=== PATIENT | female | born 1975 | race Caucasian/White ===

== ENCOUNTER 2016-07-28 19:59 | Emergency (ER) | payer SELFPAY ==
[2016-07-28 20:23] VITALS: BP 141/80
--- NOTE | 2016-07-28 20:42 | EDM.PDOC ---
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 Caught her arm on the hot tray. Now with blistered burn area to left forearm. Onset: Today Onset Date: 07/28/16 Onset Time: 20:39 Location: Reports: Upper Extremity, Right Quality: Reports: Other (no current pain, applied Solarcaine) Severity: Mild Improves with: Reports: Cold Therapy, Other (Solar cane and cold water) Worsens with: Reports: None Context: Reports: Other (baking) Associated Symptoms: Reports: No Other Symptoms - Related Data Allergies Allergy/AdvReac Type Severity Reaction Status Date / Time morphine Allergy Vomiting Verified 07/28/16 20:17 Home Meds: Home Meds NK [No Known Home Meds] 07/28/16 [History] Past Medical History - Past Surgical History GI Surgical History: Reports: Cholecystectomy Social & Family History - Tobacco Use Smoking Status *Q: Never Smoker ED ROS GENERAL - Review of Systems Review Of Systems: See Below Constitutional: Reports: No Symptoms Skin: Reports: Burn(s) (right forearm) ED EXAM, BURN/SMOKE INHALATION - Physical Exam Exam: See Below Exam Limited By: No Limitations General Appearance: Alert, WD/WN, No Apparent Distress Skin Exam: Other (right forearm with red skin flap due to burn. See nurses notes for measurement.) Course - Vital Signs Last Recorded V/S: Last Vital Signs Temp 97.0 F 07/28/16 20:21 Pulse 86 07/28/16 20:21 Resp 14 07/28/16 20:21 BP 141/80 H 07/28/16 20:21 Pulse Ox 97 07/28/16 20:21 - Orders/Labs/Meds Meds: Medications Discontinued Medications Generic Name Dose Route Start Last Admin Trade Name Freq PRN Reason Stop Dose Admin Silver Sulfadiazine 1 gm 07/28/16 20:48 Silvadene 1% Cream 50 Gm TOP 07/28/16 20:49 ONETIME ONE Departure - Departure Time of Disposition: 20:42 Disposition: Home, Self-Care 01 Clinical Impression: Burn, hands, second degree Qualifiers: Encounter type: initial encounter Laterality: right Qualified Code(s): T23.201A - Burn of second degree of right hand, unspecified site, initial encounter - Discharge Information Instructions: Burn Care, [id number] Referrals: PCP,None [Primary Care Provider] - Forms: ED Department Discharge Additional Instructions: Skin dressed with Silvadene cream and telfa and percy. Pt to dress daily after showering. To keep area clean and dry. Monitor for s/s of infection. Followup if sign of infection. - Problem List & Annotations (1) Burn, hands, second degree SNOMED Code(s): 25835356 Code(s): T23.209A - BURN OF SECOND DEGREE OF UNSP HAND, UNSP SITE, INIT ENCNTR Status: Acute Priority: Low Current Visit: Yes Qualifiers: Encounter type: initial encounter Laterality: right Qualified Code(s): T23.201A - Burn of second degree of right hand, unspecified site, initial encounter
[2016-07-28] MEDS ORDERED: Silver Sulfadiazine 1% Crm 50 GM Tube TOP ONE ×2 (20:48→21:05)
== END 2016-07-28 21:08 | disposition home or self-care (01) ==
LOC: JP.ED 19:59
DX: T22.211A Burn of second degree of right forearm, initial encounter (principal); Z88.5 Allergy status to narcotic agent; Z90.49 Acquired absence of other specified parts of digestive tract; X15.2XXA Contact with hotplate, initial encounter
CPT/HCPCS: 16020; 99283; A9270; 99282-25

== ENCOUNTER 2017-09-14 17:31 | Emergency (ER) | payer OTHER ==
[2017-09-14 19:10] VITALS: BP 121/64
[2017-09-14] MEDS ORDERED: cefTRIAXone 1 GM, Lidocaine 1% 2.1 ML IM ONE ×2 (19:39)
[2017-09-14] MEDS ORDERED: Ketorolac 60 MG/2 ML SDV IM ONE (19:39)
--- NOTE | 2017-09-14 19:46 | EDM.PDOC ---
ED HPI GENERAL MEDICAL PROBLEM - General Chief Complaint: Lower Extremity Injury/Pain Stated Complaint: SWOLLEN,RED RIGHT FOOT Time Seen by Provider: 09/14/17 18:41 Source of Information: Reports: Patient History Limitations: Reports: No Limitations - History of Present Illness INITIAL COMMENTS - FREE TEXT/NARRATIVE: right foot pain and redness; this is a 41 year old female presents to ER for evaluation of symptoms. reports woke up with a red and swollen foot. denies any injury to foot, no bites, or punctures. redness is from mid-foot to ankle. 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 denies any fever or chills. denies diabetes, or breast feeding. 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: Acetaminophen Right Feet Pain Score (Numeric/FACES): 7 - Related Data Allergies Allergy/AdvReac Type Severity Reaction Status Date / Time morphine Allergy Vomiting Verified 09/14/17 19:01 Home Meds: Home Meds Iron,Carbonyl/Vit C/Vit B12/Fa [Iron 100 Plus Tablet] 1 tab PO DAILY 09/14/17 [ History] Vitamin B Complex/Folic Acid [Vitamin B-100 Complex] 0.4 mg PO DAILY 09/14/17 [ History] 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: Hematologic History: Reports: Anemia - Past Surgical History GI Surgical History: Reports: Cholecystectomy Social & Family History - Tobacco Use Smoking Status *Q: Current Every Day Smoker Years of Tobacco use: 15 Packs/Tins Daily: 0.5 Used Tobacco, but Quit: No Second Hand Smoke Exposure: Yes - Caffeine Use Caffeine Use: Reports: Coffee - Recreational Drug Use Recreational Drug Use: Yes Recreational Drug Type: Reports: Methamphetamine - Living Situation & Occupation Occupation: Employed (works in [employer].) Review of Systems - Review of Systems Review Of Systems: See Below Constitutional: Reports: Other (right foot pain) Eyes: Reports: No Symptoms Ears: Reports: No Symptoms Nose: Reports: No Symptoms Mouth/Throat: Reports: No Symptoms Respiratory: Reports: No Symptoms Cardiovascular: Reports: No Symptoms GI/Abdominal: Reports: No Symptoms Musculoskeletal: Reports: Foot Pain Skin: Reports: Erythema (rt foot), Change in Color (rt foot) Neurological: Reports: No Symptoms Psychiatric: Reports: No Symptoms ED EXAM, GENERAL - Physical Exam Exam: See Below Exam Limited By: No Limitations General Appearance: Alert, WD/WN, Mild Distress Eye Exam: Bilateral Eye: Normal Inspection Extremities: Normal Capillary Refill (toes), Joint Swelling, Redness, Other ( right foot with redness, edema, pain for 3 days. toes normal color, +CMS) Neurological: No Motor/Sensory Deficits Psychiatric: Normal Affect, Normal Mood Skin Exam: Warm, Dry, Intact, Normal Color, No Rash Lymphatic: No Adenopathy Course - Vital Signs Last Recorded V/S: Last Vital Signs Temp 36.9 C 09/14/17 19:09 Pulse 96 09/14/17 19:09 Resp 16 09/14/17 19:09 BP 121/64 09/14/17 19:09 Pulse Ox 100 09/14/17 19:09 - Orders/Labs/Meds Meds: Medications Discontinued Medications Generic Name Dose Route Start Last Admin Trade Name Isaias PRN Reason Stop Dose Admin Ceftriaxone Sodium 1 gm 09/14/17 19:49 09/14/17 20:15 Rocephin IM 09/14/17 19:50 Not Given ONETIME ONE Ceftriaxone Sodium 1 gm/ 0 gm 09/14/17 19:39 09/14/17 20:13 Lidocaine HCl 2.1 ml IM 09/14/17 19:40 1 inj ONETIME ONE Administration Ketorolac Tromethamine 60 mg 09/14/17 19:39 09/14/17 20:09 Toradol IM 09/14/17 19:40 60 mg ONETIME ONE Administration Lidocaine HCl Confirm 09/14/17 20:02 09/14/17 20:15 Xylocaine 1% Administered 09/14/17 20:03 Not Given Dose 20 ml .ROUTE .STK-MED ONE - Re-Assessments/Exams Free Text/Narrative Re-Assessment/Exam: 09/14/17 right foot with pain, edema and redness from mid-foot to ankle. walking without a limp. plan; give Rocephin 1 gram and Toradol 60 mg im, instymeds Keflex and Percocet advise to keep off foot for 3 days follow up in [facility] recheck on Saturday, return to ER sooner for any worsen symptoms. Departure - Departure Time of Disposition: 20:20 Disposition: Home, Self-Care 01 Condition: Good Clinical Impression: Cellulitis of foot without toes, right - Discharge Information Instructions: Cellulitis, Adult, [id number] Referrals: PCP,None [Primary Care Provider] - Forms: ED Department Discharge Care Plan Goals: Cellulitis of right foot -Rocephin 1 gram IM in ER -Toradol 60mg IM in ER start Keflex 500 mg one capsule four times a day til all gone -apply warm moist heat 3 times a day for 3 days -elevate foot and keep off feet as much as possible for next 3 days -medicate for pain with Tylenol or Motrin as directed -acute pain; take Percocet 5-325mg one every 4 to 6 hours as need for pain #10 advise to have recheck with [facility] on Saturday, return to ER for any shaking chills, fever, increased pain, redness, nausea, vomiting or not improved - Problem List & Annotations (1) Cellulitis of foot without toes, right SNOMED Code(s): 326109748 Code(s): L03.115 - CELLULITIS OF RIGHT LOWER LIMB Status: Acute Priority : High - Problem List Review Problem List Initiated/Reviewed/Updated: Yes - Assessment/Plan Plan: Cellulitis of right foot -Rocephin 1 gram IM in ER -Toradol 60mg IM in ER start Keflex 500 mg one capsule four times a day til all gone -apply warm moist heat 3 times a day for 3 days -elevate foot and keep off feet as much as possible for next 3 days -medicate for pain with Tylenol or Motrin as directed -acute pain; take Percocet 5-325mg one every 4 to 6 hours as need for pain #10 advise to have recheck with [facility] on Saturday, return to ER for any shaking chills, fever, increased pain, redness, nausea, vomiting or not improved
[2017-09-14] MEDS ORDERED: cefTRIAXone 1 GM Vial IM ONE (19:49)
[2017-09-14] MEDS ORDERED: Lidocaine 1% 20 ML MDV ONE (20:02)
== END 2017-09-14 20:20 | disposition home or self-care (01) ==
LOC: JP.ED 17:31
DX: L03.115 Cellulitis of right lower limb (principal); F17.210 Nicotine dependence, cigarettes, uncomplicated; Z88.5 Allergy status to narcotic agent
CPT/HCPCS: 96372; 99283; J0696; J1885

== ENCOUNTER 2017-09-22 15:55 | Emergency (ER) | payer OTHER ==
[2017-09-22 16:08] VITALS: BP 147/97
--- NOTE | 2017-09-22 17:06 | EDM.PDOC ---
ED HPI GENERAL MEDICAL PROBLEM - General Chief Complaint: Skin Complaint Stated Complaint: CELLULITES, SEEN LAST SAT-NOT BETTER Time Seen by Provider: 09/22/17 16:49 Source of Information: Reports: Patient History Limitations: Reports: No Limitations - History of Present Illness INITIAL COMMENTS - FREE TEXT/NARRATIVE: 41 yo presents to ER with painful red swollen right foot into ankle. painful. was seen last 8 days ago IM rocephin and Keflex. initially improved but when she would return to activity the pain and swelling returned. mild SOB. general ill feeling. pt does have anemia with scheduled exploratory surgery this month. 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 Denies: Fever Respiratory: Denies: Shortness of Breath, Wheezing Cardiovascular: Denies: Chest Pain GI/Abdominal: Denies: Abdominal Pain ED EXAM, SKIN/RASH Exam: See Below Exam Limited By: No Limitations General Appearance: Alert, WD/WN, No Apparent Distress Head: Atraumatic, Normocephalic Neck: Normal Inspection, Supple, Non-Tender, Full Range of Motion. No: Lymphadenopathy (R), Lymphadenopathy (L) Respiratory/Chest: No Respiratory Distress, Lungs Clear, Normal Breath Sounds, No Accessory Muscle Use, Chest Non-Tender. No: Crackles, Rhonchi, Wheezing Cardiovascular: Regular Rate, Rhythm, Other (3+ edema in right LE and 1+ in left ) GI/Abdominal: Soft, Non-Tender Extremities: Redness (moderate edema with painful erythemic lateral foot to just about ankle) Neurological: Alert, Oriented Psychiatric: Normal Affect, Normal Mood Skin: Warm, Dry, Intact Course - Vital Signs Last Recorded V/S: Last Vital Signs Temp 36.4 C 09/22/17 16:07 Pulse 85 09/22/17 16:07 Resp 16 09/22/17 16:07 BP 147/97 H 09/22/17 16:07 Pulse Ox 98 09/22/17 16:07 - Orders/Labs/Meds Orders: Active Orders 24 hr Category Date Time Status VL Duplex Lwr Ext Veins Ltd Rt [US] Stat Exams 09/22/17 17:03 Taken Labs: Laboratory Tests 09/22/17 09/22/17 Range/Units 17:05 17:05 WBC 9.7 (4.5-11.0) K/uL RBC 4.38 (3.30-5.50) M/uL Hgb 9.7 L (12.0-15.0) g/dL Hct 33.5 L (36.0-48.0) % MCV 77 L (80-98) fL MCH 22 L (27-31) pg MCHC 29 L (32-36) % Plt Count 252 (150-400) K/uL Neut % (Auto) 72 H (36-66) % Lymph % (Auto) 12 L (24-44) % [place] % (Auto) 14 H (2-6) % Eos % (Auto) 1 L (2-4) % Baso % (Auto) 0 (0-1) % D-Dimer, Quantitative 320 (0.0-400.0) ng/mL Meds: Medications Discontinued Medications Generic Name Dose Route Start Last Admin Trade Name Freq PRN Reason Stop Dose Admin Ceftriaxone Sodium 1 gm/ 0 gm 09/22/17 18:15 09/22/17 18:25 Lidocaine HCl 2.1 ml IM 09/22/17 18:16 1 inj ONETIME ONE Administration Furosemide 20 mg 09/22/17 18:16 09/22/17 18:26 Lasix PO 09/22/17 18:17 20 mg ONETIME ONE Administration Ketorolac Tromethamine 60 mg 09/22/17 18:09 09/22/17 18:17 Toradol IM 09/22/17 18:10 60 mg ONETIME ONE Administration - Re-Assessments/Exams Free Text/Narrative Re-Assessment/Exam: 09/22/17 18:30 US right LE neg. Departure - Departure Time of Disposition: 18:27 Disposition: Home, Self-Care 01 Condition: Good Clinical Impression: Cellulitis of foot without toes, right - Discharge Information Instructions: Cellulitis, Adult Referrals: Shakila Ortiz PA-C [Primary Care Provider] - Forms: ED Department Discharge Additional Instructions: stop Keflex and start Augmentin 500 mg twice daily for 7 days Ibuprofen 600 mg with food and tylenol for pain with percocet for break through pain elevate as much as possible I gave you a dose of lasix here in the emergency room this will help remove the extra fluid in your legs - My Orders Last 24 Hours: My Active Orders 09/22/17 17:03 VL Duplex Lwr Ext Veins Ltd Rt [US] Stat - Assessment/Plan Last 24 Hours: My Active Orders 09/22/17 17:03 VL Duplex Lwr Ext Veins Ltd Rt [US] Stat
[2017-09-22] MEDS ORDERED: Ketorolac 60 MG/2 ML SDV IM ONE (18:09)
[2017-09-22] MEDS ORDERED: cefTRIAXone 1 GM, Lidocaine 1% 2.1 ML IM ONE ×2 (18:15)
[2017-09-22] MEDS ORDERED: Furosemide 20 MG Tab PO ONE (18:16)
--- NOTE | 2017-09-23 09:25 | US ---
VL Duplex Lwr Ext Veins Ltd Rt INDICATION: edema DVT FINDINGS: Ultrasound examination of the lower extremity using Doppler and compressive technique demon strates that the common femoral, femoral, and popliteal veins are patent, and negative for thrombus. The calf veins were segmentally visualized and are negative where seen. IMPRESSION: Negative for deep venous thrombosis.
== END 2017-09-22 19:13 | disposition home or self-care (01) ==
LOC: JP.ED 15:55
DX: L03.115 Cellulitis of right lower limb (principal); F17.210 Nicotine dependence, cigarettes, uncomplicated; Z88.5 Allergy status to narcotic agent
CPT/HCPCS: 36415; 85025; 85379; 93971; 96372; 99284; A9270; J0696; J1885

== ENCOUNTER 2017-10-01 01:53 | Emergency (ER) | payer OTHER ==
[2017-10-01 02:30] VITALS: BP 120/79
--- NOTE | 2017-10-01 02:30 | EDM.PDOC ---
ED HPI GENERAL MEDICAL PROBLEM - General Chief Complaint: Skin Complaint Stated Complaint: CELLULITIS Time Seen by Provider: 10/01/17 02:27 Source of Information: Reports: Patient History Limitations: Reports: No Limitations - History of Present Illness INITIAL COMMENTS - FREE TEXT/NARRATIVE: pt has markws swelling of the rt foot and she has redness in the inner aspect of the left foot. It is very painful. She has missed 2 weeks of work. 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: Hematologic History: Reports: Anemia Dermatologic History: Reports: Cellulitis - Past Surgical History GI Surgical History: Reports: Cholecystectomy Social & Family History - Tobacco Use Smoking Status *Q: Current Every Day Smoker Years of Tobacco use: 15 Packs/Tins Daily: 0.5 - Caffeine Use Caffeine Use: Reports: Soda - Recreational Drug Use Recreational Drug Use: No - Living Situation & Occupation Occupation: Employed (works in [employer] ED ROS GENERAL - Review of Systems Review Of Systems: See Below Constitutional: Reports: No Symptoms HEENT: Reports: No Symptoms Respiratory: Reports: No Symptoms Cardiovascular: Reports: No Symptoms Endocrine: Reports: No Symptoms GI/Abdominal: Reports: No Symptoms : Reports: No Symptoms Musculoskeletal: Reports: Other (pt has severe pain in the rt foot with marked swelling. She is now developing redness on the inner aspect of the rt foot. ) Skin: Reports: No Symptoms Neurological: Reports: No Symptoms, Difficulty Walking Psychiatric: Reports: No Symptoms Hematologic/Lymphatic: Reports: Anemia ED EXAM, SKIN/RASH Exam: See Below Text/Narrative:: pt arrived with persistent pain and swelling in the rt foot and leg. She is so uncomfortable that she can bearly stand on the leg. She feels like it is no spreading to the inner aspect of the rt foot. Exam Limited By: No Limitations General Appearance: Alert, Anxious, Moderate Distress Ears: Normal TMs Nose: Normal Inspection Throat/Mouth: Normal Inspection Head: Atraumatic Neck: Normal Inspection Respiratory/Chest: No Respiratory Distress Cardiovascular: Regular Rate, Rhythm GI/Abdominal: Soft, Non-Tender (Female) Exam: Deferred Rectal (Female) Exam: Deferred Back Exam: Normal Inspection Extremities: Redness, Other (marked swelling of the rt foot and leg. This is very tender. She has redness on the inner aspect of the left foot. ) Neurological: Alert, Oriented, Normal Cognition Course - Vital Signs Last Recorded V/S: Last Vital Signs Temp 36.4 C 10/01/17 02:04 Pulse 81 10/01/17 02:04 Resp 18 10/01/17 02:04 BP 120/79 10/01/17 02:04 Pulse Ox 98 10/01/17 02:04 - Orders/Labs/Meds Orders: Active Orders 24 hr Category Date Time Status BASIC METABOLIC PANEL,BMP [CHEM] Stat Lab 10/01/17 02:48 Ordered CRP [C-REACTIVE PROTEIN] [CHEM] Stat Lab 10/01/17 02:27 Ordered Labs: Laboratory Tests 10/01/17 Range/Units 02:50 WBC 7.5 (4.5-11.0) K/uL RBC 4.18 (3.30-5.50) M/uL Hgb 9.8 L (12.0-15.0) g/dL Hct 32.9 L (36.0-48.0) % MCV 79 L (80-98) fL MCH 23 L (27-31) pg MCHC 30 L (32-36) % Plt Count 373 (150-400) K/uL Neut % (Auto) 68 H (36-66) % Lymph % (Auto) 18 L (24-44) % [place] % (Auto) 12 H (2-6) % Eos % (Auto) 2 (2-4) % Baso % (Auto) 0 (0-1) % - Re-Assessments/Exams Free Text/Narrative Re-Assessment/Exam: 10/01/17 03:19 pt does not have a elevated wbc. I believe the pt may have a vasculitis. She should be seen by rheumatology. Departure - Departure Time of Disposition: 03:21 Disposition: Home, Self-Care 01 Condition: Fair Clinical Impression: Cellulitis, Vasculitis - Discharge Information Referrals: PCP,None [Primary Care Provider] - Forms: ED Department Discharge Care Plan Goals: work note not to return to work, consult with rheumatology, refill augmentin - My Orders Last 24 Hours: My Active Orders 10/01/17 02:27 CRP [C-REACTIVE PROTEIN] [CHEM] Stat 10/01/17 02:48 BASIC METABOLIC PANEL,BMP [CHEM] Stat - Assessment/Plan Last 24 Hours: My Active Orders 10/01/17 02:27 CRP [C-REACTIVE PROTEIN] [CHEM] Stat 10/01/17 02:48 BASIC METABOLIC PANEL,BMP [CHEM] Stat
== END 2017-10-01 03:39 | disposition home or self-care (01) ==
LOC: JP.ED 01:53
DX: L03.116 Cellulitis of left lower limb (principal); I77.6 Arteritis, unspecified; F17.210 Nicotine dependence, cigarettes, uncomplicated; Z88.5 Allergy status to narcotic agent; Z79.899 Other long term (current) drug therapy
CPT/HCPCS: 36415; 80048; 85025; 86140; 99284

== ENCOUNTER 2018-04-19 15:05 | Emergency (ER) | payer MEDICAID ==
[2018-04-19 15:26] VITALS: BP 121/61
--- NOTE | 2018-04-19 16:31 | EDM.PDOC ---
ED HPI GENERAL MEDICAL PROBLEM - General Chief Complaint: Headache Stated Complaint: FELL LAST WEEK, HAS BUMP & HEADACHE Time Seen by Provider: 04/19/18 16:05 Source of Information: Reports: Patient History Limitations: Reports: No Limitations - History of Present Illness INITIAL COMMENTS - FREE TEXT/NARRATIVE: This lady was walking up some stairs 5 days ago when she fell forward and bumped her for head against one of the steps. This was a wooden staircase. There was no loss of consciousness. She had a swollen lump on the left side of her for head. She said it hurt but then it got better. In the time since then she's had kind of a slowly decreasing headache mostly in the area of the forehead sometimes some nausea occasionally some dizziness occasionally a little bit of blurry vision. She's never had any trouble walking. He's never been any periods of confusion. Her main problem is that is just a headache and doesn't go away with just plain Tylenol. He does not take any kind of anticoagulation. 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: Musculoskeletal History: Reports: Other (See Below) Other Musculoskeletal History: complex regional pain disorder Endocrine/Metabolic History: Reports: Obesity/BMI 30+ Hematologic History: Reports: Anemia, Blood Transfusion(s), Iron Deficiency Dermatologic History: Reports: Cellulitis - Infectious Disease History Infectious Disease History: Reports: Scarlet Fever - Past Surgical History HEENT Surgical History: Reports: None GI Surgical History: Reports: Cholecystectomy, Colonoscopy, EGD Female Surgical History: Reports: Tubal Ligation Endocrine Surgical History: Reports: None Dermatological Surgical History: Reports: None Social & Family History - Tobacco Use Smoking Status *Q: Current Every Day Smoker Years of Tobacco use: 20 Packs/Tins Daily: 0.5 - Caffeine Use Caffeine Use: Reports: Coffee - Living Situation & Occupation Occupation: Employed (works in [employer].) ED ROS GENERAL - Review of Systems Review Of Systems: See Below Constitutional: Reports: No Symptoms HEENT: Reports: No Symptoms Respiratory: Reports: No Symptoms Cardiovascular: Reports: No Symptoms Endocrine: Reports: No Symptoms GI/Abdominal: Reports: No Symptoms : Reports: No Symptoms Musculoskeletal: Reports: No Symptoms Skin: Reports: No Symptoms Neurological: Reports: Dizziness (Occasional), Headache. Denies: Confusion, Numbness, Paresthesia, Pre-Existing Deficit, Trouble Speaking, Difficulty Walking, Weakness, Change in Speech, Gait Disturbance Psychiatric: Reports: No Symptoms ED EXAM, HEAD INJURY - Physical Exam Exam: See Below Exam Limited By: No Limitations General Appearance: Alert, WD/WN Head: Other (There is evidence of a minor contusion to the left side of the for head. There is no discoloration to it so it looks almost healed. 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 No: Abnormal Gait DTR: 2+: Bicep (R), Bicep (L), Patella (R), Patella (L) Skin: Normal Color Course - Vital Signs Last Recorded V/S: Last Vital Signs Temp 36.8 C 04/19/18 15:59 Pulse 74 04/19/18 15:59 Resp 16 04/19/18 15:59 BP 121/61 04/19/18 15:59 Pulse Ox 98 04/19/18 15:59 Departure - Departure Time of Disposition: 16:31 Disposition: Home, Self-Care 01 Condition: Fair Clinical Impression: Post-traumatic headache - Discharge Information Referrals: Shakila Ortiz PA-C [Primary Care Provider] - Additional Instructions: It is common to have these symptoms after a minor head injury. Your symptoms do not suggest any kind of internal injury such as bleeding around the brain. Because of this a CT of your head would not be needed but rather would just exposure to unneeded radiation. For pain you can use plain Tylenol along with ibuprofen or instead of the Tylenol you could use some of the [place] 5/325 (12 tablets) one or 2 every 4 hours when necessary. This medication can cause sedation and if abused can lead to addiction. You should be back to normal within several days. If you have more trouble follow-up with your Dr. or return to the ER at any time if needed
== END 2018-04-19 16:41 | disposition home or self-care (01) ==
LOC: JP.ED 15:05
DX: S00.03XA Contusion of scalp, initial encounter (principal); F17.210 Nicotine dependence, cigarettes, uncomplicated; Z88.5 Allergy status to narcotic agent; Z79.899 Other long term (current) drug therapy; W10.9XXA Fall (on) (from) unspecified stairs and steps, initial encounter
CPT/HCPCS: 99284

== ENCOUNTER 2018-06-02 22:34 | Emergency (ER) | payer MEDICAID ==
[2018-06-02] MEDS ORDERED: Sodium Chloride 0.9% 10 ML Syringe FLUSH PRN (23:12)
[2018-06-02] MEDS ORDERED: Prochlorperazine 10 MG/2 ML SDV IVPUSH ONE (23:14)
[2018-06-02] MEDS ORDERED: Ketorolac 30 MG/ML SDV IVPUSH ONE (23:14)
[2018-06-02] MEDS ORDERED: diphenhydrAMINE 50 MG/ML SDV IVPUSH ONE (23:14)
[2018-06-02] MEDS ORDERED: Sodium Chloride 0.9% 1,000 ML IV SCH (23:15)
[2018-06-02] MEDS ORDERED: fentaNYL 100 MCG/2 ML SDV IVPUSH ONE (23:16)
--- NOTE | 2018-06-02 23:19 | EDM.PDOC ---
ED HPI GENERAL MEDICAL PROBLEM - General Chief Complaint: Headache Stated Complaint: DULL HEADACHE Time Seen by Provider: 06/02/18 23:06 Source of Information: Reports: Patient, Family, RN Notes Reviewed History Limitations: Reports: No Limitations - History of Present Illness INITIAL COMMENTS - FREE TEXT/NARRATIVE: 42-year-old female presents to the emergency department today complaint of headache, she states the worst headache of her life she has no history of migraines this headache is very intense rates a 10 out of 10 to the back of her head she denies any trauma however she did have concussion type injury about one month ago. Does have nausea no photophobia no focal neurologic deficit no fever - Related Data Allergies Allergy/AdvReac Type Severity Reaction Status Date / Time morphine Allergy Vomiting Verified 04/19/18 15:52 Home Meds: Home Meds Iron,Carbonyl/Vit C/Vit B12/Fa [Iron 100 Plus Tablet] 65 mg PO BID 09/14/17 [ History] Vitamin B Complex/Folic Acid [Vitamin B-100 Complex] 0.4 mg PO DAILY 09/14/17 [ History] Indomethacin 50 mg PO TID PRN 10/17/17 [History] Topiramate [Topamax] 25 mg PO BEDTIME 02/12/18 [History] Past Medical History HEENT History: Reports: Impaired Vision Other HEENT History: wears glasses Genitourinary History: Reports: UTI, 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: Musculoskeletal History: Reports: Other (See Below) Other Musculoskeletal History: complex regional pain disorder Endocrine/Metabolic History: Reports: Obesity/BMI 30+ Hematologic History: Reports: Anemia, Blood Transfusion(s), Iron Deficiency Dermatologic History: Reports: Cellulitis - Infectious Disease History Infectious Disease History: Reports: Scarlet Fever - Past Surgical History HEENT Surgical History: Reports: None GI Surgical History: Reports: Cholecystectomy, Colonoscopy, EGD Female Surgical History: Reports: Tubal Ligation Endocrine Surgical History: Reports: None Dermatological Surgical History: Reports: None Social & Family History - Tobacco Use Smoking Status *Q: Current Every Day Smoker Years of Tobacco use: 10 Packs/Tins Daily: 0.5 - Caffeine Use Caffeine Use: Reports: None - Recreational Drug Use Recreational Drug Use: No - Living Situation & Occupation Occupation: Employed (works in [employer] ED ROS GENERAL - Review of Systems Review Of Systems: See Below Constitutional: Denies: Fever, Chills HEENT: Denies: Eye Pain Respiratory: Reports: No Symptoms Cardiovascular: Reports: No Symptoms GI/Abdominal: Reports: Nausea : Reports: No Symptoms Musculoskeletal: Reports: Neck Pain Skin: Reports: No Symptoms Neurological: Reports: Headache - Physical Exam Exam: See Below Exam Limited By: No Limitations General Appearance: Alert, WD/WN, No Apparent Distress Eye Exam: Bilateral Eye: EOMI, Normal Fundi, Normal Inspection Head Exam: Atraumatic, Normocephalic Neck: Supple, Non-Tender, Full Range of Motion, Other (Tenderness when she places her chin on her chest increases the pain in the headache) Respiratory/Chest: No Respiratory Distress Course - Vital Signs Last Recorded V/S: Last Vital Signs Temp 97.1 F 06/02/18 22:50 Pulse 79 06/03/18 00:38 Resp 15 06/03/18 00:38 BP 101/37 L 06/03/18 00:38 Pulse Ox 100 06/03/18 00:38 - Orders/Labs/Meds Orders: Active Orders 24 hr Category Date Time Status Peripheral IV Care [RC] . DIRECTED Care 06/02/18 23:12 Active Sodium Chloride 0.9% [Normal Saline] 1,000 ml Med 06/02/18 23:15 Active IV ASDIRECTED Sodium Chloride 0.9% [Saline Flush] Med 06/02/18 23:12 Active 10 ml FLUSH ASDIRECTED PRN Peripheral IV Insertion Adult [OM.PC] Urgent Oth 06/02/18 23:12 Ordered Medication Orders Sodium Chloride (Normal Saline) 1,000 mls @ 999 mls/hr IV ASDIRECTED [facility] Last Admin: 06/02/18 23:37 Dose: 999 mls/hr Sodium Chloride (Saline Flush) 10 ml FLUSH ASDIRECTED PRN PRN Reason: Keep Vein Open Labs: Laboratory Tests 06/02/18 06/02/18 Range/Units 23:26 23:26 WBC 5.8 (4.5-11.0) K/uL RBC 3.63 (3.30-5.50) M/uL Hgb 7.0 L (12.0-15.0) g/dL Hct 26.1 L (36.0-48.0) % MCV 72 L (80-98) fL MCH 19 L (27-31) pg MCHC 27 L (32-36) % Plt Count 119 L (150-400) K/uL Neut % (Auto) 58 (36-66) % Lymph % (Auto) 27 (24-44) % [place] % (Auto) 13 H (2-6) % Eos % (Auto) 2 (2-4) % Baso % (Auto) 1 (0-1) % Sodium 139 L (140-148) mmol/L Potassium 3.4 L (3.6-5.2) mmol/L Chloride 106 (100-108) mmol/L Carbon Dioxide 25 (21-32) mmol/L Anion Gap 11.4 (5.0-14.0) mmol/L BUN 8 (7-18) mg/dL Creatinine 0.7 (0.6-1.0) mg/dL Est Cr Clr Drug Dosing 89.48 mL/min Estimated GFR (MDRD) > 60 (>60) Glucose 98 (74-106) mg/dL Calcium 8.0 L (8.5-10.1) mg/dL Total Bilirubin 0.2 D (0.2-1.0) mg/dL AST 18 (15-37) U/L ALT 20 (12-78) U/L Alkaline Phosphatase 77 (46-116) U/L C-Reactive Protein 0.33 H (0.0-0.3) mg/dL Total Protein 6.4 (6.4-8.2) g/dL Albumin 2.7 L (3.4-5.0) g/dL Globulin 3.7 H (2.3-3.5) g/dL Albumin/Globulin Ratio 0.7 L (1.2-2.2) Meds: Medications Generic Name Dose Route Start Last Admin Trade Name Freq PRN Reason Stop Dose Admin Sodium Chloride 1,000 mls @ 999 mls/hr 06/02/18 23:15 06/02/18 23:37 Normal Saline IV 999 mls/hr ASDIRECTED NANCIE Administration Sodium Chloride 10 ml 06/02/18 23:12 Saline Flush FLUSH ASDIRECTED PRN Keep Vein Open Discontinued Medications Generic Name Dose Route Start Last Admin Trade Name Freq PRN Reason Stop Dose Admin Diphenhydramine HCl 25 mg 06/02/18 23:14 06/02/18 23:36 Benadryl IVPUSH 03/25/19 23:15 25 mg ONETIME ONE Administration Fentanyl 50 mcg 06/02/18 23:16 06/02/18 23:38 Sublimaze IVPUSH 06/02/18 23:17 50 mcg ONETIME ONE Administration Ketorolac Tromethamine 30 mg 06/02/18 23:14 Toradol IVPUSH 06/02/18 23:15 ONETIME ONE Prochlorperazine Edisylate 5 mg 06/02/18 23:14 06/02/18 23:42 Compazine IVPUSH 06/02/18 23:15 5 mg ONETIME ONE Administration Departure - Departure Time of Disposition: 00:51 Disposition: Home, Self-Care 01 Condition: Fair Clinical Impression: Headache Qualifiers: Headache type: unspecified Headache chronicity pattern: unspecified pattern Intractability: not intractable Qualified Code(s): R51 - Headache - Discharge Information Referrals: Shakila Ortiz PA-C [Primary Care Provider] - Forms: ED Department Discharge Additional Instructions: Please follow-up with your primary care provider in the next 1-2 days for reevaluation to discuss anemia and headache, call return to the emergency department worsening of symptoms - My Orders Last 24 Hours: My Active Orders 06/02/18 23:12 Peripheral IV Care [RC] . DIRECTED Sodium Chloride 0.9% [Saline Flush] 10 ml FLUSH ASDIRECTED PRN Peripheral IV Insertion Adult [OM.PC] Urgent 06/02/18 23:15 Sodium Chloride 0.9% [Normal Saline] 1,000 ml IV ASDIRECTED - Assessment/Plan Last 24 Hours: My Active Orders 06/02/18 23:12 Peripheral IV Care [RC] . DIRECTED Sodium Chloride 0.9% [Saline Flush] 10 ml FLUSH ASDIRECTED PRN Peripheral IV Insertion Adult [OM.PC] Urgent 06/02/18 23:15 Sodium Chloride 0.9% [Normal Saline] 1,000 ml IV ASDIRECTED Plan: Assessment Acuity = acute Site and laterality = headache Etiology = unclear etiology Manifestations = none Location of injury = Home Lab values = hemoglobin low at 7.0 consistent microchromic anemia, CT scan of the head was negative CMP unremarkable Plan I did talk to her about the possibility of a lumbar puncture she declined, also discussed the possibility of transfusion at this time she declined she does feel better with the treatment provided of therefore she is given a follow-up with her primary care for further evaluation for anemia as well as headache This note was dictated using [employer] voice recognition software please call with any questions on syntax or grammar.
--- NOTE | 2018-06-03 00:25 | CRLCT ---
INDICATION: Worst headache of life TECHNIQUE: CT head without contrast. COMPARISON: None. FINDINGS: CSF spaces: Within normal limits for age. Brain parenchyma: The tovar-white differentiation is normal. No sign of mass, hemorrhage, or midline shift. Skull base and calvarium: The visualized paranasal sinuses and mastoid air cells demonstrate no acute or significant findings. The visualized orbits are grossly unremarkable. No skull fractures. IMPRESSION: Unremarkable noncontrast head CT. Please note that all CT scans at this facility use dose modulation, iterative reconstruction, and/or weight-based dosing when appropriate to reduce radiation dose to as low as reasonably achievable. Dictated by Lenin Malagon MD @ Jun 03 2018 12:20AM Signed by Dr. Lenin Malagon @ Jun 03 2018 12:23AM
[2018-06-03 00:39] VITALS: BP 101/37
== END 2018-06-03 01:02 | disposition home or self-care (01) ==
LOC: JP.ED 22:34
DX: R51 Headache (principal); E66.9 Obesity, unspecified; F17.210 Nicotine dependence, cigarettes, uncomplicated; Z90.49 Acquired absence of other specified parts of digestive tract; Z98.51 Tubal ligation status; Z86.2 Personal history of diseases of the blood and blood-forming organs and certain disorders involving the immune mechanism; Z88.5 Allergy status to narcotic agent
CPT/HCPCS: 36415; 70450; 80053; 85025; 86140; 96361; 96374; 96375; 99284; J0780; J1200; J3010; J7030

== ENCOUNTER 2019-05-02 10:20 | Observation (INO) | payer MEDICAID ==
[2019-05-02] MEDS ORDERED: Ondansetron 4 MG/2 ML SDV IVPUSH ONE (11:06)
--- NOTE | 2019-05-02 11:09 | EDM.PDOC ---
ED HPI GENERAL MEDICAL PROBLEM - General Chief Complaint: General Stated Complaint: HURTS IN THE UPPER CHEST AREA Time Seen by Provider: 05/02/19 11:07 Source of Information: Reports: Patient History Limitations: Reports: No Limitations - History of Present Illness INITIAL COMMENTS - FREE TEXT/NARRATIVE: pt has discomfort in her chest. She is having heart burn. She did vomit twice yesterday and there was no blood in the emesis. She has noted some dark tarry stools but not all of the time. Onset: Gradual, Other (last 2 days. She did vomit yesterday. ) Duration: Hour(s): Location: Reports: Chest, Abdomen, Generalized Associated Symptoms: Reports: Nausea/Vomiting, Shortness of Breath, Weakness Chest Pain Score (Numeric/FACES): 5 - Related Data Allergies Allergy/AdvReac Type Severity Reaction Status Date / Time morphine Allergy Vomiting Verified 05/02/19 10:47 Home Meds: Home Meds Iron,Carbonyl/Vit C/Vit B12/Fa [Iron 100 Plus Tablet] 1 tab PO BID 09/14/17 [ History] Vitamin B Complex/Folic Acid [Vitamin B-100 Complex] 1 tab PO DAILY 09/14/17 [ History] Albuterol Sulfate [Albuterol Sulfate Hfa] 2 inh INH QID PRN 06/03/18 [History] Nicotine [Nicotrol] 1 inh INH ASDIRECTED PRN 06/03/18 [History] Topiramate [Topamax] 100 mg PO BID 06/03/18 [History] traZODone HCl [Trazodone HCl] 50 mg PO DAILY 06/03/18 [History] Pregabalin [Lyrica] 1 - 3 tab PO BEDTIME 05/02/19 [History] hydrOXYzine pamoate [Hydroxyzine Pamoate] 1 cap PO ASDIRECTED 05/02/19 [History] Past Medical History HEENT History: Reports: Impaired Vision Other HEENT History: wears glasses Genitourinary History: Reports: UTI, Recurrent 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: Musculoskeletal History: Reports: Other (See Below) Other Musculoskeletal History: complex regional pain disorder Psychiatric History: Reports: Addiction Endocrine/Metabolic History: Reports: Obesity/BMI 30+ Hematologic History: Reports: Anemia, Blood Transfusion(s), Iron Deficiency Dermatologic History: Reports: Cellulitis - Infectious Disease History Infectious Disease History: Reports: Scarlet Fever - Past Surgical History GI Surgical History: Reports: Cholecystectomy, Colonoscopy, EGD Female Surgical History: Reports: Tubal Ligation Social & Family History - Tobacco Use Smoking Status *Q: Light Tobacco Smoker Years of Tobacco use: 15 Packs/Tins Daily: 0.1 - Caffeine Use Caffeine Use: Reports: None - Recreational Drug Use Recreational Drug Use: Yes Recreational Drug Type: Reports: Methamphetamine Recreational Drug Use Frequency: Socially - Living Situation & Occupation Occupation: Employed (works in [email or web address] ED ROS GENERAL - Review of Systems Review Of Systems: See Below Constitutional: Reports: Malaise, Weakness, Decreased Appetite HEENT: Reports: No Symptoms Respiratory: Reports: Shortness of Breath Cardiovascular: Reports: No Symptoms Endocrine: Reports: No Symptoms GI/Abdominal: Reports: Abdominal Pain, Other (heartburn in the epuigastric area. ) : Reports: No Symptoms Musculoskeletal: Reports: No Symptoms Skin: Reports: No Symptoms ED EXAM, GENERAL - Physical Exam Exam: See Below Free Text/Narrative:: pt arrived feeling very weak and dizzy. She has been nauseated and she did vomit twice yesterday. She does have heartburn like symptoms. Exam Limited By: No Limitations General Appearance: Alert, Anxious, Moderate Distress, Other ( she states her ribs hurt. ) Ears: Normal TMs Nose: Normal Inspection Throat/Mouth: Normal Inspection Head: Atraumatic Neck: Normal Inspection Respiratory/Chest: No Respiratory Distress, Other (pt states her ribs hurt but she does not have chest pain. ) Cardiovascular: Regular Rate, Rhythm GI/Abdominal: Other ( tender in the epigastric area. ) (Female) Exam: Deferred, Other (pt has had 2 periods this month and this one is very heavy. ) Rectal (Female) Exam: Other ( no masses she did have a positive stool. ) Back Exam: Normal Inspection Extremities: Normal Inspection Neurological: Alert, Oriented, Normal Cognition, Other ( very pale appearing. ) Psychiatric: Normal Affect Course - Vital Signs Last Recorded V/S: Last Vital Signs Temp 35.8 C L 05/02/19 10:50 Pulse 66 05/02/19 11:54 Resp 18 05/02/19 11:54 BP 137/67 05/02/19 11:54 Pulse Ox 99 05/02/19 11:54 - Orders/Labs/Meds Orders: Active Orders 24 hr Category Date Time Status Chest 1V Frontal [CR] Stat Exams 05/02/19 11:09 Taken DRUG SCREEN, URINE [URCHEM] Stat Lab 05/02/19 12:12 Ordered RED BLOOD CELLS LP [BBK] Stat Lab 05/02/19 11:15 Received TYPE AND SCREEN [BBK] Stat Lab 05/02/19 11:15 Received UA W/MICROSCOPIC [URIN] Urgent Lab 05/02/19 10:57 Ordered Sodium Chloride 0.9% [Normal Saline] 1,000 ml Med 05/02/19 11:15 Active IV ASDIRECTED Transfuse Red Blood Cells [COMM] Stat Oth 05/02/19 11:37 Ordered Medication Orders Sodium Chloride (Normal Saline) 1,000 mls @ 999 mls/hr IV ASDIRECTED NANCIE Last Admin: 05/02/19 11:51 Dose: 999 mls/hr Labs: Laboratory Tests 05/02/19 05/02/19 05/02/19 Range/Units 11:20 11:20 11:38 WBC 7.7 (4.5-11.0) K/uL RBC 3.77 (3.30-5.50) M/uL Hgb 6.8 L* D (12.0-15.0) g/dL Hct 26.4 L (36.0-48.0) % MCV 70 L (80-98) fL MCH 18 L (27-31) pg MCHC 26 L (32-36) % Plt Count 100 L (150-400) K/uL Neut % (Auto) 71 H (36-66) % Lymph % (Auto) 14 L (24-44) % [place] % (Auto) 12 H (2-6) % Eos % (Auto) 3 (2-4) % Baso % (Auto) 0 (0-1) % Sodium 140 (140-148) mmol/L Potassium 3.3 L (3.6-5.2) mmol/L Chloride 106 (100-108) mmol/L Carbon Dioxide 24 (21-32) mmol/L Anion Gap 13.3 (5.0-14.0) mmol/L BUN 5 L (7-18) mg/dL Creatinine 0.6 (0.6-1.0) mg/dL Est Cr Clr Drug Dosing 103.32 mL/min Estimated GFR (MDRD) > 60 (>60) Glucose 93 (74-106) mg/dL Calcium 8.3 L (8.5-10.1) mg/dL Iron 13 L (50-170) ug/dL TIBC 375 (250-450) ug/dl % Saturation 3 L (20-55) % Total Bilirubin 0.2 (0.2-1.0) mg/dL AST 15 (15-37) U/L ALT 25 (12-78) U/L Alkaline Phosphatase 85 (46-116) U/L Total Protein 6.4 (6.4-8.2) g/dL Albumin 2.8 L (3.4-5.0) g/dL Globulin 3.6 H (2.3-3.5) g/dL Albumin/Globulin Ratio 0.8 L (1.2-2.2) Meds: Medications Generic Name Dose Route Start Last Admin Trade Name Freq PRN Reason Stop Dose Admin Sodium Chloride 1,000 mls @ 999 mls/hr 05/02/19 11:15 05/02/19 11:51 Normal Saline IV 999 mls/hr ASDIRECTED NANCIE Administration Discontinued Medications Generic Name Dose Route Start Last Admin Trade Name Freq PRN Reason Stop Dose Admin Ondansetron HCl 4 mg 05/02/19 11:06 05/02/19 11:51 Zofran IVPUSH 05/02/19 11:07 4 mg ONETIME ONE Administration - Re-Assessments/Exams Free Text/Narrative Re-Assessment/Exam: 05/02/19 12:17 hg is 6.8. She has low iron. Pt does admit to using meth at times. Departure - Departure Time of Disposition: 12:18 Disposition: Admitted As Inpatient 65 Condition: Fair Clinical Impression: Anemia, Gastrointestinal irritation, Heavy menses, Low iron stores - Discharge Information Referrals: Shakila Ortiz PA-C [Primary Care Provider] - Forms: ED Department Discharge Care Plan Goals: admit to Dr Burks Sepsis Event Note - Focused Exam Vital Signs: Vital Signs Temp Pulse Resp BP Pulse Ox 05/02/19 11:54 66 18 137/67 99 05/02/19 10:50 35.8 C L 67 14 138/69 99 05/02/19 10:20 35.8 C L 67 14 138/69 99 Date Exam was Performed: 05/02/19 Time Exam was Performed: 12:12 - My Orders Last 24 Hours: My Active Orders 05/02/19 10:57 UA W/MICROSCOPIC [URIN] Urgent 05/02/19 11:09 Chest 1V Frontal [CR] Stat 05/02/19 11:15 RED BLOOD CELLS LP [BBK] Stat TYPE AND SCREEN [BBK] Stat Sodium Chloride 0.9% [Normal Saline] 1,000 ml IV ASDIRECTED 05/02/19 11:37 Transfuse Red Blood Cells [COMM] Stat 05/02/19 12:12 DRUG SCREEN, URINE [URCHEM] Stat - Assessment/Plan Last 24 Hours: My Active Orders 05/02/19 10:57 UA W/MICROSCOPIC [URIN] Urgent 05/02/19 11:09 Chest 1V Frontal [CR] Stat 05/02/19 11:15 RED BLOOD CELLS LP [BBK] Stat TYPE AND SCREEN [BBK] Stat Sodium Chloride 0.9% [Normal Saline] 1,000 ml IV ASDIRECTED 05/02/19 11:37 Transfuse Red Blood Cells [COMM] Stat 05/02/19 12:12 DRUG SCREEN, URINE [URCHEM] Stat
[2019-05-02] MEDS ORDERED: Sodium Chloride 0.9% 1,000 ML IV SCH ×2 (11:15→14:37)
[2019-05-02] MEDS ORDERED: Alum Hydrox/Mag Hydrox/Simeth 15 ML, Lidocaine 2% 15 ML PO ONE ×4 (12:14→20:04)
[2019-05-02] MEDS ORDERED: Pantoprazole 40 MG Vial IVPUSH SCH (12:15)
--- NOTE | 2019-05-02 13:49 | PCM.HP.2 ---
H&P History of Present Illness - General Date of Service: 05/02/19 Admit Problem/Dx: Admission Diagnosis/Problem Admission Diagnosis/Problem Microcytic anemia Source of Information: Patient, Family, Provider, RN Notes Reviewed History Limitations: Reports: No Limitations - History of Present Illness Initial Comments - Free Text/Narative: Ms. Luque is a 43-year-old woman who was admitted through the emergency department observation status for further evaluation and management of microcytic, iron deficiency anemia. She has had a longstanding history of iron deficiency anemia. No specific etiology is been identified other than heavy periods. Last EGD and colonoscopy were approximately 18 months ago at that time upper endoscopy was unremarkable and colonoscopy was incomplete because of very poor prep. He admits that she is not been taking her iron supplement. Recently has had symptoms of chest pain, lightheadedness, weakness, and shortness of breath. These symptoms are very similar to when her anemia has been severe in the past. On evaluation in the emergency department hemoglobin is low at 7.8 with microcytic indices. Iron level also found to be low. Chest Pain Score (Numeric/FACES): 5 - Related Data Allergies/Adverse Reactions: Allergies Allergy/AdvReac Type Severity Reaction Status Date / Time morphine Allergy Vomiting Verified 05/02/19 10:47 Home Medications: Home Meds Iron,Carbonyl/Vit C/Vit B12/Fa [Iron 100 Plus Tablet] 1 tab PO BID 09/14/17 [ History] Vitamin B Complex/Folic Acid [Vitamin B-100 Complex] 1 tab PO DAILY 09/14/17 [ History] Albuterol Sulfate [Albuterol Sulfate Hfa] 2 inh INH QID PRN 06/03/18 [History] Nicotine [Nicotrol] 1 inh INH ASDIRECTED PRN 06/03/18 [History] Topiramate [Topamax] 100 mg PO BID 06/03/18 [History] traZODone HCl [Trazodone HCl] 50 mg PO DAILY 06/03/18 [History] Pregabalin [Lyrica] 1 - 3 tab PO BEDTIME 05/02/19 [History] hydrOXYzine pamoate [Hydroxyzine Pamoate] 1 cap PO ASDIRECTED 05/02/19 [History] Past Medical History HEENT History: Reports: Impaired Vision Other HEENT History: wears glasses Genitourinary History: Reports: UTI, Recurrent SUBSTANCE ABUSE NURSE History: Reports: Musculoskeletal History: Reports: Other (See Below) Other Musculoskeletal History: complex regional pain disorder Psychiatric History: Reports: Addiction Endocrine/Metabolic History: Reports: Obesity/BMI 30+ Hematologic History: Reports: Anemia, Blood Transfusion(s), Iron Deficiency Dermatologic History: Reports: Cellulitis - Infectious Disease History Infectious Disease History: Reports: Scarlet Fever - Past Surgical History GI Surgical History: Reports: Cholecystectomy, Colonoscopy, EGD Female Surgical History: Reports: Tubal Ligation Social & Family History - Tobacco Use Smoking Status *Q: Light Tobacco Smoker Years of Tobacco use: 15 Packs/Tins Daily: 0.1 - Caffeine Use Caffeine Use: Reports: None - Recreational Drug Use Recreational Drug Use: Yes Recreational Drug Type: Reports: Methamphetamine Recreational Drug Use Frequency: Socially - Living Situation & Occupation Occupation: Employed (works in [employer] H&P Review of Systems - Review of Systems: Review Of Systems: Comprehensive ROS is negative, except as noted in HPI. Exam - Exam Exam: See Below - Vital Signs Vital Signs: Last Vital Signs Temp 96.4 F L 05/02/19 13:30 Pulse 66 05/02/19 13:30 Resp 16 05/02/19 13:30 BP 120/68 05/02/19 13:30 Pulse Ox 99 05/02/19 13:30 Weight: 208 lb 5.389 oz - Exam General: Alert, Oriented, Cooperative, Mild Distress HEENT: Conjunctiva Clear, Hearing Intact, Mucosa Moist & [place], Normal Nasal Septum, Posterior Pharynx Clear, Pupils Equal Neck: Supple, Trachea Midline, +2 Carotid Pulse wo Bruit Lungs: Clear to Auscultation, Normal Respiratory Effort Cardiovascular: Regular Rate, Regular Rhythm, Normal S1, Normal S2. No: Systolic Murmur, Diastolic Murmur GI/Abdominal Exam: Soft, Non-Tender, No Organomegaly, No Distention Back Exam: Normal Inspection, Full Range of Motion Extremities: Non-Tender, No Pedal Edema Skin: Warm, Dry, Intact Neurological: Cranial Nerves Intact, Strength Equal Bilateral, Normal Speech, Normal Tone, Sensation Intact. No: Focal Deficit Neuro Extensive - Mental Status: Alert, Oriented x3, Normal Mood/Affect, Normal Cognition, Memory Intact - Patient Data Lab Results Last 24 hrs: Laboratory Results - last 24 hr 05/02/19 05/02/19 05/02/19 Range/Units 10:57 11:15 11:20 WBC 7.7 (4.5-11.0) K/uL RBC 3.77 (3.30-5.50) M/uL Hgb 6.8 L* D (12.0-15.0) g/dL Hct 26.4 L (36.0-48.0) % MCV 70 L (80-98) fL MCH 18 L (27-31) pg MCHC 26 L (32-36) % Plt Count 100 L (150-400) K/uL Neut % (Auto) 71 H (36-66) % Lymph % (Auto) 14 L (24-44) % Gibson % (Auto) 12 H (2-6) % Eos % (Auto) 3 (2-4) % Baso % (Auto) 0 (0-1) % Sodium (140-148) mmol/L Potassium (3.6-5.2) mmol/L Chloride (100-108) mmol/L Carbon Dioxide (21-32) mmol/L Anion Gap (5.0-14.0) mmol/L BUN (7-18) mg/dL Creatinine (0.6-1.0) mg/dL Est Cr Clr Drug Dosing mL/min Estimated GFR (MDRD) (>60) Glucose (74-106) mg/dL Calcium (8.5-10.1) mg/dL Iron (50-170) ug/dL TIBC (250-450) ug/dl % Saturation (20-55) % Total Bilirubin (0.2-1.0) mg/dL AST (15-37) U/L ALT (12-78) U/L Alkaline Phosphatase (46-116) U/L Total Protein (6.4-8.2) g/dL Albumin (3.4-5.0) g/dL Globulin (2.3-3.5) g/dL Albumin/Globulin Ratio (1.2-2.2) Urine Color Yellow (YELLOW) Urine Appearance Cloudy A (CLEAR) Urine pH 7.0 (5.0-8.0) Ur Specific [place] 1.020 (1.008-1.030) Urine Protein Negative (NEGATIVE) mg/dL Urine Glucose (UA) Negative (NEGATIVE) mg/dL Urine Ketones Negative (NEGATIVE) mg/dL Urine Occult Blood Large H (NEGATIVE) Urine Nitrite Negative (NEGATIVE) Urine Bilirubin Negative (NEGATIVE) Urine Urobilinogen 1.0 (0.2-1.0) EU/dL Ur Leukocyte Esterase Negative (NEGATIVE) Urine RBC 40-50 H (0-5) Urine WBC 10-20 H (0-5) Ur Epithelial Cells Few Amorphous Sediment Not seen Urine Bacteria Few Urine Mucus Not seen Urine Opiates Screen (NEGATIVE) Ur Oxycodone Screen (NEGATIVE) Urine Methadone Screen (NEGATIVE) Ur Propoxyphene Screen (NEGATIVE) Ur Barbiturates Screen (NEGATIVE) Ur Tricyclics Screen (NEGATIVE) Ur Phencyclidine Scrn (NEGATIVE) Ur Amphetamine Screen (NEGATIVE) U Methamphetamines Scrn (NEGATIVE) Urine MDMA Screen (NEGATIVE) U Benzodiazepines Scrn (NEGATIVE) U Cocaine Metab Screen (NEGATIVE) U Marijuana (THC) Screen (NEGATIVE) Blood Type A POSITIVE Gel Antibody Screen Positive A* Crossmatch See Detail 05/02/19 05/02/19 05/02/19 Range/Units 11:20 11:38 12:12 WBC (4.5-11.0) K/uL RBC (3.30-5.50) M/uL Hgb (12.0-15.0) g/dL Hct (36.0-48.0) % MCV (80-98) fL MCH (27-31) pg MCHC (32-36) % Plt Count (150-400) K/uL Neut % (Auto) (36-66) % Lymph % (Auto) (24-44) % Gibson % (Auto) (2-6) % Eos % (Auto) (2-4) % Baso % (Auto) (0-1) % Sodium 140 (140-148) mmol/L Potassium 3.3 L (3.6-5.2) mmol/L Chloride 106 (100-108) mmol/L Carbon Dioxide 24 (21-32) mmol/L Anion Gap 13.3 (5.0-14.0) mmol/L BUN 5 L (7-18) mg/dL Creatinine 0.6 (0.6-1.0) mg/dL Est Cr Clr Drug Dosing 103.32 mL/min Estimated GFR (MDRD) > 60 (>60) Glucose 93 (74-106) mg/dL Calcium 8.3 L (8.5-10.1) mg/dL Iron 13 L (50-170) ug/dL TIBC 375 (250-450) ug/dl % Saturation 3 L (20-55) % Total Bilirubin 0.2 (0.2-1.0) mg/dL AST 15 (15-37) U/L ALT 25 (12-78) U/L Alkaline Phosphatase 85 (46-116) U/L Total Protein 6.4 (6.4-8.2) g/dL Albumin 2.8 L (3.4-5.0) g/dL Globulin 3.6 H (2.3-3.5) g/dL Albumin/Globulin Ratio 0.8 L (1.2-2.2) Urine Color (YELLOW) Urine Appearance (CLEAR) Urine pH (5.0-8.0) Ur Specific [place] (1.008-1.030) Urine Protein (NEGATIVE) mg/dL Urine Glucose (UA) (NEGATIVE) mg/dL Urine Ketones (NEGATIVE) mg/dL Urine Occult Blood (NEGATIVE) Urine Nitrite (NEGATIVE) Urine Bilirubin (NEGATIVE) Urine Urobilinogen (0.2-1.0) EU/dL Ur Leukocyte Esterase (NEGATIVE) Urine RBC (0-5) Urine WBC (0-5) Ur Epithelial Cells Amorphous Sediment Urine Bacteria Urine Mucus Urine Opiates Screen Negative (NEGATIVE) Ur Oxycodone Screen Negative (NEGATIVE) Urine Methadone Screen Negative (NEGATIVE) Ur Propoxyphene Screen Negative (NEGATIVE) Ur Barbiturates Screen Negative (NEGATIVE) Ur Tricyclics Screen Negative (NEGATIVE) Ur Phencyclidine Scrn Negative (NEGATIVE) Ur Amphetamine Screen Negative (NEGATIVE) U Methamphetamines Scrn Presumptive positive H (NEGATIVE) Urine MDMA Screen Negative (NEGATIVE) U Benzodiazepines Scrn Negative (NEGATIVE) U Cocaine Metab Screen Negative (NEGATIVE) U Marijuana (THC) Screen Negative (NEGATIVE) Blood Type Gel Antibody Screen Crossmatch Result Diagrams: 05/02/19 11:20 05/02/19 11:20 [place] Results Last 24 hrs: Microbiology 05/02/19 11:05 Stool Occult Blood ([facility]) - Final Stool / Feces Sepsis Event Note - Evaluation Sepsis Screening Result: No Definite Risk - Focused Exam Vital Signs: Vital Signs Temp Pulse Resp BP Pulse Ox 05/02/19 13:30 96.4 F L 66 16 120/68 99 05/02/19 11:54 66 18 137/67 99 05/02/19 10:50 96.4 F L 67 14 138/69 99 05/02/19 10:20 96.4 F L 67 14 138/69 99 Date Exam was Performed: 05/02/19 Time Exam was Performed: 13:41 *Q Meaningful Use (ADM) - VTE Risk Assess *Q Each Risk Factor Represents 1 Point: Age 41 - 59 years, Obesity ( BMI > 25 kg/m2 ) Total Score 1 Point Risk Factors: 2 Each Risk Factor Represents 2 Points: None Total Score 2 Point Risk Factors: 0 Each Risk Factor Represents 3 Points: None Total Score 3 Point Risk Factors: 0 Each Risk Factor Represents 5 Points: None Total Score 5 Point Risk Factors: 0 Venous Thromboembolism Risk Factor Score *Q: 2 Problem List Initiated/Reviewed/Updated: Yes Orders Last 24hrs: Active Orders 24 hr Category Date Time Status Patient Status Manage Transfer [TRANSFER] Routine ADT 05/02/19 13:05 Active Chest 1V Frontal [CR] Stat Exams 05/02/19 11:09 Taken ANTIBODY IDENTIFICATION [BBK] Stat Lab 05/02/19 11:15 Results RED BLOOD CELLS LP [BBK] Stat Lab 05/02/19 11:15 Results TYPE AND SCREEN [BBK] Stat Lab 05/02/19 11:15 Results Pantoprazole [ProTONIX IV] Med 05/02/19 12:15 Active 80 mg IVPUSH .BOLUS Sodium Chloride 0.9% [Normal Saline] 1,000 ml Med 05/02/19 11:15 Active IV ASDIRECTED Resuscitation Status Routine Resus Stat 05/02/19 13:08 Ordered Medication Orders Sodium Chloride (Normal Saline) 1,000 mls @ 999 mls/hr IV ASDIRECTED NANCIE Last Admin: 05/02/19 11:51 Dose: 999 mls/hr Pantoprazole Sodium (Protonix Iv) 80 mg IVPUSH .BOLUS NANCIE Last Admin: 05/02/19 12:25 Dose: 80 mg Assessment/Plan Comment:: ASSESSMENT AND PLAN IRON DEFICIENCY ANEMIA-longstanding problem having previously required transfusion. Recent symptoms of weakness, lightheadedness, shortness of breath , and chest pain similar to previous episodes of severe anemia. Hemoglobin in the emergency department found to be very low at 7.8 with microcytic indices. Iron level obtained and is also found to be low. I suspect that this is secondary to combination of heavy menstrual periods and iron malabsorption versus noncompliance with supplemental iron. EGD 18 months ago was unremarkable , colonoscopy was incomplete and the patient deferred reattempted colonoscopy following a second prep. -Transfuse 1 unit of red blood cells -Hemoglobin following transfusion and in a.m. -IV iron infusion today and again tomorrow -Suspect that she will require further iron infusions in the near future and on an ongoing basis to prevent severe anemia and further transfusions. -Protonix 40 mg p.o. twice daily -Consider outpatient EGD and colonoscopy MAINTENANCE ISSUES -DVT prophylaxis; not indicated -GI prophylaxis; Protonix as above -Duncan catheter; not indicated -Nutrition; regular diet -Nicotine dependence; not required CODE STATUS-FULL CODE ADMISSION STATUS-this patient will be admitted to observation status, expect no more than a one night hospital stay for evaluation and management of problems as outlined above. DISPOSITION-anticipate discharge to home after the hospital stay. PRIMARY CARE PROVIDER-Mandy Ortiz - Mortality Measure Prognosis:: Good
[2019-05-02] MEDS ORDERED: Polyethylene Glycol 3350 Powder 17 GM Packet PO PRN (14:37)
[2019-05-02] MEDS ORDERED: Ondansetron 4 MG/2 ML SDV IV PRN (14:37)
[2019-05-02] MEDS ORDERED: Acetaminophen 325 MG Tab PO PRN (14:37)
[2019-05-02] MEDS ORDERED: Albuterol 8 GM Inhaler INH PRN (14:37)
[2019-05-02] MEDS ORDERED: Sodium Chloride 0.9% 10 ML Syringe FLUSH PRN (14:37)
[2019-05-02] MEDS: Ferrous Fumarate/Vitamin C 200-125 MG Tab PO SCH ×2 (15:03→21:28)
[2019-05-02] MEDS ORDERED: Sodium Ferric Gluconate Cmplex 250 MG in Sodium Chloride 0.9% 100 ML IV ONE (15:30)
[2019-05-02] MEDS: Pantoprazole 40 MG Tab.CR PO SCH (15:32)
[2019-05-02] MEDS ORDERED: LORazepam 1 MG Tab PO ONE (19:58)
[2019-05-02] MEDS ORDERED: traZODone 50 MG Tab PO SCH (21:00)
[2019-05-02] MEDS ORDERED: Pregabalin 100 MG Cap PO SCH (21:00)
[2019-05-02] MEDS: Topiramate 100 MG Tab PO SCH (21:28)
--- NOTE | 2019-05-02 23:23 | PCM.SN ---
- Free Text/Narrative Note: call at 1950 from 2 [facility] S: reports chest pain - similar to chest pain experience in ER, requesting GI Cocktail. anxiety O: vital signs stable A: anxiety P: Ativan 1 mg po now. continue present plan of care call at 2230 from 2 [facility] - labs results vital signs 37.2-68-14 B/P 108/57 O: lab result hemoglobin 7.3 A: anemia P: give 2nd unit of blood. recheck cbc in am.
[2019-05-03] MEDS: Pantoprazole 40 MG Tab.CR PO SCH (07:09)
[2019-05-03] MEDS ORDERED: Sodium Ferric Gluconate Cmplex 250 MG in Sodium Chloride 0.9% 100 ML IV ONE (08:00)
[2019-05-03] MEDS: Topiramate 100 MG Tab PO SCH (09:44)
[2019-05-03] MEDS: Ferrous Fumarate/Vitamin C 200-125 MG Tab PO SCH (09:45)
--- NOTE | 2019-05-03 09:59 | PCM.DCSUM1 ---
Discharge Summary - Hospital Course Brief History: Ms. Luque is a 43-year-old woman who was admitted to observation status through the emergency department with weakness, lightheadedness, chest discomfort, secondary to severe anemia and a hemoglobin of 6.8. - Discharge Data Discharge Date: 05/03/19 Discharge Disposition: Home, Self-Care 01 Condition: Fair - Referral to Home Health Primary Care Physician: Shakila Ortiz PA-C - Discharge Diagnosis/Problem(s) (1) Microcytic anemia SNOMED Code(s): 079825745 ICD Code: D50.9 - IRON DEFICIENCY ANEMIA, UNSPECIFIED Status: Acute Current Visit: Yes (2) Iron deficiency SNOMED Code(s): 84858845 ICD Code: E61.1 - IRON DEFICIENCY Status: Acute Current Visit: Yes (3) Gastrointestinal irritation SNOMED Code(s): 65195182 ICD Code: K92.89 - OTHER SPECIFIED DISEASES OF THE DIGESTIVE SYSTEM Status : Acute Current Visit: Yes (4) Heavy menses SNOMED Code(s): 682870186 ICD Code: N92.0 - EXCESSIVE AND FREQUENT MENSTRUATION WITH REGULAR CYCLE Status: Acute Current Visit: Yes - Patient Summary/Data Hospital Course: Ms. Luque is a 43-year-old woman who was admitted through the emergency department observation status for further evaluation and management of microcytic, iron deficiency anemia. She has had a longstanding history of iron deficiency anemia. No specific etiology is been identified other than heavy periods. Last EGD and colonoscopy were approximately 18 months ago at that time upper endoscopy was unremarkable and colonoscopy was incomplete because of very poor prep. He admits that she is not been taking her iron supplement. Recently has had symptoms of chest pain, lightheadedness, weakness, and shortness of breath. These symptoms are very similar to when her anemia has been severe in the past. On evaluation in the emergency department hemoglobin is low at 7.8 with microcytic indices. Iron level also found to be low. On admission she was given IV fluids for hydration and transfused 1 unit of red blood cells. On the day of admission was also given 250 mg of IV Ferrlecit for iron replacement. Follow-up hemoglobin level was obtained after transfusion of 1 unit of red blood cells and was 7.3, because of ongoing symptoms she was transfused 1 additional unit of red blood cells. After the second unit of red blood cells her hemoglobin was up to 8.3 on the following morning. Prior to discharge she was given another dose of IV iron 250 mg. She did experience some epigastric abdominal pain prior to admission and during hospitalization and was treated with Protonix 40 mg twice daily while in the hospital and will be discharged home on Protonix 40 mg daily. Follow-up appointment should be scheduled with her primary care provider within 1 week. At the time of follow- up appointment hemoglobin level and iron level should be obtained. She may require further IV iron supplementation. May also require ongoing IV iron replacement therapy over time. I have strongly encouraged her to avoid methamphetamine use and to take her oral iron supplement twice daily. Outpatient EGD and colonoscopy should be scheduled to evaluate for other source of blood loss. Activity will be as tolerated and she will resume her usual diet. - Patient Instructions Diet: Usual Diet as Tolerated Activity: As Tolerated Other/Special Instructions: Schedule follow-up appointment with primary care provider within 1 week. Hemoglobin and iron level should be obtained at the time of follow-up appointment. - Discharge Plan *PRESCRIPTION DRUG MONITORING PROGRAM REVIEWED*: Not Applicable *COPY OF PRESCRIPTION DRUG MONITORING REPORT IN PATIENT CARLOS: Not Applicable Prescriptions/Med Rec: Pantoprazole [ProTONIX] 40 mg PO DAILY #30 tab.cr Home Medications: Home Meds Iron,Carbonyl/Vit C/Vit B12/Fa [Iron 100 Plus Tablet] 1 tab PO BID 09/14/17 [ History] Vitamin B Complex/Folic Acid [Vitamin B-100 Complex] 1 tab PO DAILY 09/14/17 [ History] Albuterol Sulfate [Albuterol Sulfate Hfa] 2 inh INH QID PRN 06/03/18 [History] Nicotine [Nicotrol] 1 inh INH ASDIRECTED PRN 06/03/18 [History] Topiramate [Topamax] 100 mg PO BID 06/03/18 [History] traZODone HCl [Trazodone HCl] 50 mg PO DAILY 06/03/18 [History] Pregabalin [Lyrica] 1 - 3 tab PO BEDTIME 05/02/19 [History] hydrOXYzine pamoate [Hydroxyzine Pamoate] 1 cap PO ASDIRECTED 05/02/19 [History] Pantoprazole [ProTONIX] 40 mg PO DAILY #30 tab.cr 05/03/19 [Rx] Referrals: Shakila Ortiz PA-C [Primary Care Provider] - - Discharge Summary/Plan Comment DC Time >30 min.: No - Patient Data Vitals - Most Recent: Last Vital Signs Temp 99.0 F 05/03/19 07:06 Pulse 59 L 05/03/19 07:06 Resp 16 05/03/19 07:06 BP 112/46 L 05/03/19 07:06 Pulse Ox 98 05/03/19 04:48 Weight - Most Recent: 208 lb 5.389 oz I&O - Last 24 hours: Intake & Output 05/02/19 05/03/19 05/03/19 22:59 06:59 14:59 Intake Total 2013 762 120 Balance 2013 762 120 Lab Results - Last 24 hrs: Laboratory Results - last 24 hr 05/02/19 05/02/19 05/02/19 Range/Units 10:57 11:15 11:20 WBC 7.7 (4.5-11.0) K/uL RBC 3.77 (3.30-5.50) M/uL Hgb 6.8 L* D (12.0-15.0) g/dL Hct 26.4 L (36.0-48.0) % MCV 70 L (80-98) fL MCH 18 L (27-31) pg MCHC 26 L (32-36) % Plt Count 100 L (150-400) K/uL Neut % (Auto) 71 H (36-66) % Lymph % (Auto) 14 L (24-44) % Amador % (Auto) 12 H (2-6) % Eos % (Auto) 3 (2-4) % Baso % (Auto) 0 (0-1) % Percent Retic (0.5-1.5) % Sodium (140-148) mmol/L Potassium (3.6-5.2) mmol/L Chloride (100-108) mmol/L Carbon Dioxide (21-32) mmol/L Anion Gap (5.0-14.0) mmol/L BUN (7-18) mg/dL Creatinine (0.6-1.0) mg/dL Est Cr Clr Drug Dosing mL/min Estimated GFR (MDRD) (>60) Glucose (74-106) mg/dL Calcium (8.5-10.1) mg/dL Iron (50-170) ug/dL TIBC (250-450) ug/dl % Saturation (20-55) % Total Bilirubin (0.2-1.0) mg/dL AST (15-37) U/L ALT (12-78) U/L Alkaline Phosphatase (46-116) U/L Lactate Dehydrogenase (82-234) U/L Total Protein (6.4-8.2) g/dL Albumin (3.4-5.0) g/dL Globulin (2.3-3.5) g/dL Albumin/Globulin Ratio (1.2-2.2) Vitamin B12 (193-986) pg/ml Folate (8.6-58.9) ng/ml Urine Color Yellow (YELLOW) Urine Appearance Cloudy A (CLEAR) Urine pH 7.0 (5.0-8.0) Ur Specific [place] 1.020 (1.008-1.030) Urine Protein Negative (NEGATIVE) mg/dL Urine Glucose (UA) Negative (NEGATIVE) mg/dL Urine Ketones Negative (NEGATIVE) mg/dL Urine Occult Blood Large H (NEGATIVE) Urine Nitrite Negative (NEGATIVE) Urine Bilirubin Negative (NEGATIVE) Urine Urobilinogen 1.0 (0.2-1.0) EU/dL Ur Leukocyte Esterase Negative (NEGATIVE) Urine RBC 40-50 H (0-5) Urine WBC 10-20 H (0-5) Ur Epithelial Cells Few Amorphous Sediment Not seen Urine Bacteria Few Urine Mucus Not seen Urine Opiates Screen (NEGATIVE) Ur Oxycodone Screen (NEGATIVE) Urine Methadone Screen (NEGATIVE) Ur Propoxyphene Screen (NEGATIVE) Ur Barbiturates Screen (NEGATIVE) Ur Tricyclics Screen (NEGATIVE) Ur Phencyclidine Scrn (NEGATIVE) Ur Amphetamine Screen (NEGATIVE) U Methamphetamines Scrn (NEGATIVE) Urine MDMA Screen (NEGATIVE) U Benzodiazepines Scrn (NEGATIVE) U Cocaine Metab Screen (NEGATIVE) U Marijuana (THC) Screen (NEGATIVE) Blood Type A POSITIVE Gel Antibody Screen Positive A* Antibody Identification Anti-E Crossmatch See Detail 05/02/19 05/02/19 05/02/19 Range/Units 11:20 11:38 12:12 WBC (4.5-11.0) K/uL RBC (3.30-5.50) M/uL Hgb (12.0-15.0) g/dL Hct (36.0-48.0) % MCV (80-98) fL MCH (27-31) pg MCHC (32-36) % Plt Count (150-400) K/uL Neut % (Auto) (36-66) % Lymph % (Auto) (24-44) % Amador % (Auto) (2-6) % Eos % (Auto) (2-4) % Baso % (Auto) (0-1) % Percent Retic (0.5-1.5) % Sodium 140 (140-148) mmol/L Potassium 3.3 L (3.6-5.2) mmol/L Chloride 106 (100-108) mmol/L Carbon Dioxide 24 (21-32) mmol/L Anion Gap 13.3 (5.0-14.0) mmol/L BUN 5 L (7-18) mg/dL Creatinine 0.6 (0.6-1.0) mg/dL Est Cr Clr Drug Dosing 103.32 mL/min Estimated GFR (MDRD) > 60 (>60) Glucose 93 (74-106) mg/dL Calcium 8.3 L (8.5-10.1) mg/dL Iron 13 L (50-170) ug/dL TIBC 375 (250-450) ug/dl % Saturation 3 L (20-55) % Total Bilirubin 0.2 (0.2-1.0) mg/dL AST 15 (15-37) U/L ALT 25 (12-78) U/L Alkaline Phosphatase 85 (46-116) U/L Lactate Dehydrogenase (82-234) U/L Total Protein 6.4 (6.4-8.2) g/dL Albumin 2.8 L (3.4-5.0) g/dL Globulin 3.6 H (2.3-3.5) g/dL Albumin/Globulin Ratio 0.8 L (1.2-2.2) Vitamin B12 (193-986) pg/ml Folate (8.6-58.9) ng/ml Urine Color (YELLOW) Urine Appearance (CLEAR) Urine pH (5.0-8.0) Ur Specific [place] (1.008-1.030) Urine Protein (NEGATIVE) mg/dL Urine Glucose (UA) (NEGATIVE) mg/dL Urine Ketones (NEGATIVE) mg/dL Urine Occult Blood (NEGATIVE) Urine Nitrite (NEGATIVE) Urine Bilirubin (NEGATIVE) Urine Urobilinogen (0.2-1.0) EU/dL Ur Leukocyte Esterase (NEGATIVE) Urine RBC (0-5) Urine WBC (0-5) Ur Epithelial Cells Amorphous Sediment Urine Bacteria Urine Mucus Urine Opiates Screen Negative (NEGATIVE) Ur Oxycodone Screen Negative (NEGATIVE) Urine Methadone Screen Negative (NEGATIVE) Ur Propoxyphene Screen Negative (NEGATIVE) Ur Barbiturates Screen Negative (NEGATIVE) Ur Tricyclics Screen Negative (NEGATIVE) Ur Phencyclidine Scrn Negative (NEGATIVE) Ur Amphetamine Screen Negative (NEGATIVE) U Methamphetamines Scrn Presumptive positive H (NEGATIVE) Urine MDMA Screen Negative (NEGATIVE) U Benzodiazepines Scrn Negative (NEGATIVE) U Cocaine Metab Screen Negative (NEGATIVE) U Marijuana (THC) Screen Negative (NEGATIVE) Blood Type Gel Antibody Screen Antibody Identification Crossmatch 05/02/19 05/02/19 05/02/19 Range/Units 14:37 14:37 22:07 WBC (4.5-11.0) K/uL RBC (3.30-5.50) M/uL Hgb 7.3 L (12.0-15.0) g/dL Hct (36.0-48.0) % MCV (80-98) fL MCH (27-31) pg MCHC (32-36) % Plt Count (150-400) K/uL Neut % (Auto) (36-66) % Lymph % (Auto) (24-44) % Amador % (Auto) (2-6) % Eos % (Auto) (2-4) % Baso % (Auto) (0-1) % Percent Retic 2.6 H (0.5-1.5) % Sodium (140-148) mmol/L Potassium (3.6-5.2) mmol/L Chloride (100-108) mmol/L Carbon Dioxide (21-32) mmol/L Anion Gap (5.0-14.0) mmol/L BUN (7-18) mg/dL Creatinine (0.6-1.0) mg/dL Est Cr Clr Drug Dosing mL/min Estimated GFR (MDRD) (>60) Glucose (74-106) mg/dL Calcium (8.5-10.1) mg/dL Iron (50-170) ug/dL TIBC (250-450) ug/dl % Saturation (20-55) % Total Bilirubin (0.2-1.0) mg/dL AST (15-37) U/L ALT (12-78) U/L Alkaline Phosphatase (46-116) U/L Lactate Dehydrogenase 203 (82-234) U/L Total Protein (6.4-8.2) g/dL Albumin (3.4-5.0) g/dL Globulin (2.3-3.5) g/dL Albumin/Globulin Ratio (1.2-2.2) Vitamin B12 314 (193-986) pg/ml Folate 7.5 L (8.6-58.9) ng/ml Urine Color (YELLOW) Urine Appearance (CLEAR) Urine pH (5.0-8.0) Ur Specific [place] (1.008-1.030) Urine Protein (NEGATIVE) mg/dL Urine Glucose (UA) (NEGATIVE) mg/dL Urine Ketones (NEGATIVE) mg/dL Urine Occult Blood (NEGATIVE) Urine Nitrite (NEGATIVE) Urine Bilirubin (NEGATIVE) Urine Urobilinogen (0.2-1.0) EU/dL Ur Leukocyte Esterase (NEGATIVE) Urine RBC (0-5) Urine WBC (0-5) Ur Epithelial Cells Amorphous Sediment Urine Bacteria Urine Mucus Urine Opiates Screen (NEGATIVE) Ur Oxycodone Screen (NEGATIVE) Urine Methadone Screen (NEGATIVE) Ur Propoxyphene Screen (NEGATIVE) Ur Barbiturates Screen (NEGATIVE) Ur Tricyclics Screen (NEGATIVE) Ur Phencyclidine Scrn (NEGATIVE) Ur Amphetamine Screen (NEGATIVE) U Methamphetamines Scrn (NEGATIVE) Urine MDMA Screen (NEGATIVE) U Benzodiazepines Scrn (NEGATIVE) U Cocaine Metab Screen (NEGATIVE) U Marijuana (THC) Screen (NEGATIVE) Blood Type Gel Antibody Screen Antibody Identification Crossmatch 05/03/19 Range/Units 05:35 WBC 7.0 (4.5-11.0) K/uL RBC 4.26 (3.30-5.50) M/uL Hgb 8.3 L (12.0-15.0) g/dL Hct 30.9 L (36.0-48.0) % MCV 73 L (80-98) fL MCH 20 L (27-31) pg MCHC 27 L (32-36) % Plt Count 114 L (150-400) K/uL Neut % (Auto) 53 (36-66) % Lymph % (Auto) 27 (24-44) % Amador % (Auto) 14 H (2-6) % Eos % (Auto) 5 H (2-4) % Baso % (Auto) 1 (0-1) % Percent Retic (0.5-1.5) % Sodium (140-148) mmol/L Potassium (3.6-5.2) mmol/L Chloride (100-108) mmol/L Carbon Dioxide (21-32) mmol/L Anion Gap (5.0-14.0) mmol/L BUN (7-18) mg/dL Creatinine (0.6-1.0) mg/dL Est Cr Clr Drug Dosing mL/min Estimated GFR (MDRD) (>60) Glucose (74-106) mg/dL Calcium (8.5-10.1) mg/dL Iron (50-170) ug/dL TIBC (250-450) ug/dl % Saturation (20-55) % Total Bilirubin (0.2-1.0) mg/dL AST (15-37) U/L ALT (12-78) U/L Alkaline Phosphatase (46-116) U/L Lactate Dehydrogenase (82-234) U/L Total Protein (6.4-8.2) g/dL Albumin (3.4-5.0) g/dL Globulin (2.3-3.5) g/dL Albumin/Globulin Ratio (1.2-2.2) Vitamin B12 (193-986) pg/ml Folate (8.6-58.9) ng/ml Urine Color (YELLOW) Urine Appearance (CLEAR) Urine pH (5.0-8.0) Ur Specific [place] (1.008-1.030) Urine Protein (NEGATIVE) mg/dL Urine Glucose (UA) (NEGATIVE) mg/dL Urine Ketones (NEGATIVE) mg/dL Urine Occult Blood (NEGATIVE) Urine Nitrite (NEGATIVE) Urine Bilirubin (NEGATIVE) Urine Urobilinogen (0.2-1.0) EU/dL Ur Leukocyte Esterase (NEGATIVE) Urine RBC (0-5) Urine WBC (0-5) Ur Epithelial Cells Amorphous Sediment Urine Bacteria Urine Mucus Urine Opiates Screen (NEGATIVE) Ur Oxycodone Screen (NEGATIVE) Urine Methadone Screen (NEGATIVE) Ur Propoxyphene Screen (NEGATIVE) Ur Barbiturates Screen (NEGATIVE) Ur Tricyclics Screen (NEGATIVE) Ur Phencyclidine Scrn (NEGATIVE) Ur Amphetamine Screen (NEGATIVE) U Methamphetamines Scrn (NEGATIVE) Urine MDMA Screen (NEGATIVE) U Benzodiazepines Scrn (NEGATIVE) U Cocaine Metab Screen (NEGATIVE) U Marijuana (THC) Screen (NEGATIVE) Blood Type Gel Antibody Screen Antibody Identification Crossmatch DELIA Results - Last 24 hrs: Microbiology 05/02/19 11:05 Stool Occult Blood (DELIA) - Final Stool / Feces Med Orders - Current: Current Medications Acetaminophen (Tylenol) 650 mg PO Q4H PRN PRN Reason: Pain (Mild 1-3)/fever Last Admin: 05/02/19 20:21 Dose: 650 mg Albuterol (Ventolin Hfa) 0 gm INH QID PRN PRN Reason: Shortness of Breath Ferric Sodium Gluconate Complex 250 mg/ Sodium Chloride 120 mls @ 50 mls/hr IV ONETIME ONE Stop: 05/03/19 10:23 Last Admin: 05/03/19 08:41 Dose: 50 mls/hr Iron/Vitamin C (Vitron-C) 1 tab PO BID [facility] Last Admin: 05/03/19 09:45 Dose: 1 tab Ondansetron HCl (Zofran) 4 mg IV Q4H PRN PRN Reason: Nausea/Vomiting Pantoprazole Sodium (Protonix) 40 mg PO BIDAC [facility] Last Admin: 05/03/19 07:09 Dose: 40 mg Polyethylene Glycol (Miralax) 17 gm PO DAILY PRN PRN Reason: Constipation Pregabalin (Lyrica) 300 mg PO BEDTIME [facility] Last Admin: 05/02/19 21:28 Dose: 300 mg Sodium Chloride (Saline Flush) 10 ml FLUSH ASDIRECTED PRN PRN Reason: Keep Vein Open Topiramate (Topamax) 100 mg PO BID [facility] Last Admin: 05/03/19 09:44 Dose: 100 mg Trazodone HCl (Trazodone) 50 mg PO BEDTIME [facility] Last Admin: 05/02/19 21:28 Dose: 50 mg Discontinued Medications Al Hydroxide/Mg Hydroxide 15 (ml/ Lidocaine HCl 15 ml) 0 ml PO ONETIME ONE Stop: 05/02/19 12:15 Last Admin: 05/02/19 12:25 Dose: 15 ml Al Hydroxide/Mg Hydroxide 15 (ml/ Lidocaine HCl 15 ml) 0 ml PO ONETIME ONE Stop: 05/02/19 20:05 Last Admin: 05/02/19 20:23 Dose: 15 ml Sodium Chloride (Normal Saline) 1,000 mls @ 999 mls/hr IV ASDIRECTED [facility] Last Admin: 05/02/19 11:51 Dose: 999 mls/hr Sodium Chloride (Normal Saline) 1,000 mls @ 125 mls/hr IV ASDIRECTED [facility] Last Admin: 05/02/19 15:03 Dose: 125 mls/hr Ferric Sodium Gluconate Complex 250 mg/ Sodium Chloride 120 mls @ 50 mls/hr IV ONETIME ONE Stop: 05/02/19 17:53 Last Admin: 05/02/19 15:03 Dose: 50 mls/hr Lorazepam (Ativan) 1 mg PO ONETIME ONE Stop: 05/02/19 19:59 Last Admin: 05/02/19 20:21 Dose: 1 mg Ondansetron HCl (Zofran) 4 mg IVPUSH ONETIME ONE Stop: 05/02/19 11:07 Last Admin: 05/02/19 11:51 Dose: 4 mg Pantoprazole Sodium (Protonix Iv) 80 mg IVPUSH .BOLUS [facility] Last Admin: 05/02/19 12:25 Dose: 80 mg - Exam General: Reports: Alert, Oriented, Cooperative, No Acute Distress Lungs: Reports: Clear to Auscultation, Normal Respiratory Effort Cardiovascular: Reports: Regular Rate, Regular Rhythm, No Murmurs GI/Abdominal Exam: Soft, Non-Tender, No Organomegaly, No Distention Extremities: Non-Tender, No Pedal Edema *Q Meaningful Use (DIS) - VTE *Q VTE Pharmacological Contraindications *Q: Not Candidate LT Anticoag
[2019-05-03 11:12] VITALS: BP 118/64; PULSE 72
--- NOTE | 2019-05-04 08:45 | CR ---
CHEST: Portable 05/02/2019 at 12:01 PM CLINICAL HISTORY:Rib pain COMPARISON:2012 FINDINGS: The heart size, pulmonary vascular and hilar structures are normal. No infiltrate effusion or pneumothorax is seen. IMPRESSION: No acute cardiopulmonary process. If clinical symptomatology persists, dedicated rib study should be considered
== END 2019-05-03 12:39 | disposition home or self-care (01) ==
LOC: JP.ED 10:20 → JP.2SS 13:05
PROVIDERS: ADMIT Hospitalist; ATTEND Hospitalist
DX: D50.9 Iron deficiency anemia, unspecified (principal); K92.89 Other specified diseases of the digestive system; N92.0 Excessive and frequent menstruation with regular cycle; R07.89 Other chest pain; E66.9 Obesity, unspecified; F17.290 Nicotine dependence, other tobacco product, uncomplicated; Z88.5 Allergy status to narcotic agent; Z79.899 Other long term (current) drug therapy; Z68.35 Body mass index [BMI] 35.0-35.9, adult
CPT/HCPCS: 36415; 36430; 71045; 80053; 80305; 81001; 82272; 82607; 82746; 83550; 83615; 85018; 85025; 85045; 86850; 86900; 86901; 86902; 86920; 86922; 96361; 96365; 96366; 96375; 99285; A9270; C9113; G0378; J2405; J2916; J7030; J7050; P9016; 96374

== ENCOUNTER 2019-09-01 18:24 | Emergency (ER) | payer MEDICAID ==
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
[2019-09-01] MEDS ORDERED: Aspirin 81 MG Tab.Chew PO ONE (19:34)
[2019-09-01 20:11] VITALS: BP 116/69; PULSE 71
[2019-09-01] MEDS ORDERED: Ketorolac 30 MG/ML SDV IM ONE (20:54)
--- NOTE | 2019-09-02 09:21 | CR ---
CHEST: 2 view CLINICAL HISTORY:SOB COMPARISON:April 2019 FINDINGS: The heart size, pulmonary vascularity and hilar structures are normal. No infiltrate effusion or pneumothorax is seen. IMPRESSION: No acute cardiopulmonary process.
== END 2019-09-01 21:24 | disposition home or self-care (01) ==
LOC: JP.ED 18:24
DX: N39.0 Urinary tract infection, site not specified (principal); R07.9 Chest pain, unspecified; E66.9 Obesity, unspecified; Z79.899 Other long term (current) drug therapy; F17.210 Nicotine dependence, cigarettes, uncomplicated; Z68.35 Body mass index [BMI] 35.0-35.9, adult; Z88.5 Allergy status to narcotic agent
CPT/HCPCS: 36415; 71046; 80053; 81001; 81025; 83690; 84484; 85025; 85379; 85610; 93005; 96372; 99285; A9270; J1885

== ENCOUNTER 2019-09-08 06:41 | Day surgery (SDC) | payer MEDICAID ==
[2019-09-08] MEDS ORDERED: Sodium Chloride 0.9% 1,000 ML IV SCH (07:00)
[2019-09-08] MEDS ORDERED: Propofol 200 MG/20 ML SDV ONE ×2 (07:31→08:31)
[2019-09-08] MEDS ORDERED: fentaNYL 100 MCG/2 ML SDV ONE (07:31)
[2019-09-08] MEDS ORDERED: Midazolam 1 MG/ML 2 ML SDV ONE (07:31)
[2019-09-08 10:03] VITALS: BP 99/64; PULSE 68
--- NOTE | 2019-09-08 11:33 | OR ---
DATE OF PROCEDURE: 09/08/2019 SURGEON: Huber Good MD PROCEDURES: 1. Esophagogastroduodenoscopy. 2. Colonoscopy. FINDINGS: No etiology for anemia. PREOPERATIVE DIAGNOSIS: Anemia. POSTOPERATIVE DIAGNOSIS: Anemia. RISKS: Risks, benefits, alternatives, and limitations including, but not limited to infection, bleeding, and perforation were explained to the patient, who wished to proceed. PROCEDURE IN DETAIL: The patient was placed in left lateral decubitus position. EGD scope was introduced atraumatically to the second part of the duodenum. No evidence of duodenitis or ulceration. No gastritis. No hiatal hernia on retroflexion. The GE junction was also normal. No old or new blood in the EGD part of the procedure. The colonoscopy was then performed next. Digital rectal exam was performed without abnormality. Scope was introduced and advanced atraumatically to the ileocecal valve. A photo was taken of this. Scope was brought back through the ascending, transverse, descending colon, and retroflexed. No evidence of old or new blood. No masses. No polyps. Large amount of solid stool was noted. Suction irrigation techniques were used to maximize visualization of the colon, approximately 90% of the luminal surface could be seen. No abnormalities on retroflexion. No diverticulosis. No polyps. The patient did not have an etiology for the anemia. The patient tolerated the procedure well. Huber Good MD /[id number]
== END 2019-09-08 10:15 | disposition home or self-care (01) ==
LOC: JP.SDS 06:41
PROVIDERS: ATTEND Surgery
DX: D64.9 Anemia, unspecified (principal); J45.909 Unspecified asthma, uncomplicated; F17.200 Nicotine dependence, unspecified, uncomplicated; K21.9 Gastro-esophageal reflux disease without esophagitis; E66.9 Obesity, unspecified; Z88.5 Allergy status to narcotic agent; Z68.35 Body mass index [BMI] 35.0-35.9, adult
CPT/HCPCS: 43235; 45378; J2250; J2704; J3010; J7030

== ENCOUNTER 2019-09-17 06:59 | Emergency (ER) | payer MEDICAID ==
[2019-09-17 07:12] VITALS: BP 121/74; PULSE 89
[2019-09-17] MEDS ORDERED: Tetracaine HCl/PF 0.5% 4 ML Bottle EYERT ONE (07:26)
[2019-09-17] MEDS ORDERED: Bacitracin Oint 1 GM U/D Packet TOP ONE (07:54)
[2019-09-17] MEDS ORDERED: Diphtheria,Pertussis(Acell),Tetanus Vaccine 0.5 ML SDV IM ONE (08:05)
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
== END 2019-09-17 09:00 | disposition home or self-care (01) ==
LOC: JP.ED 06:59
DX: S05.01XA Injury of conjunctiva and corneal abrasion without foreign body, right eye, initial encounter (principal); S91.331A Puncture wound without foreign body, right foot, initial encounter; K21.9 Gastro-esophageal reflux disease without esophagitis; E66.9 Obesity, unspecified; F17.210 Nicotine dependence, cigarettes, uncomplicated; Z68.34 Body mass index [BMI] 34.0-34.9, adult; Z88.5 Allergy status to narcotic agent; Z79.899 Other long term (current) drug therapy; Z23 Encounter for immunization; W45.0XXA Nail entering through skin, initial encounter
CPT/HCPCS: 90471; 90715; 99283; A9270

== ENCOUNTER 2019-11-28 08:00 | Emergency (ER) | payer MEDICAID ==
[2019-11-28 08:22] VITALS: BP 125/68; PULSE 85
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
--- NOTE | 2019-11-28 11:53 | CRLUS ---
INDICATION: Heavy vaginal bleeding. LMP 11/11/2019. TECHNIQUE: Ultrasound pelvis transabdominal and transvaginal. Real-time sonographic images with spectral and color Doppler imaging of the ovaries were obtained. COMPARISON: None. FINDINGS: Uterus: 11.4 x 7 x 8.3 cm. Normal echotexture of the myometrium. No masses. Endometrium: Endometrial thickness measures 27 mm. No sign of endometrial mass or fluid. Right ovary measures 3.5 x 2.3 x 1.9 cm and left ovary measures 3.9 x 2.8 x 2.0 cm. Physiologic bilateral ovarian cysts with the largest on the right measuring 1.5 cm and largest on the left measuring 2.3 cm. Normal arterial and venous blood flow is demonstrated in both ovaries. Cul-de-sac: No significant free fluid. IMPRESSION: Endometrium is thickened up to 27 mm which is abnormal in a premenopausal patient. Recommend gynecologic consultation. Dictated by Alcon Chavarria MD @ Nov 28 2019 11:43AM Signed by Dr. Alcon Chavarria @ Nov 28 2019 11:51AM
== END 2019-11-28 11:53 | disposition home or self-care (01) ==
LOC: JP.ED 08:00
DX: R93.89 Abnormal findings on diagnostic imaging of other specified body structures (principal); D64.9 Anemia, unspecified; R00.0 Tachycardia, unspecified; K21.9 Gastro-esophageal reflux disease without esophagitis; F17.210 Nicotine dependence, cigarettes, uncomplicated; E66.9 Obesity, unspecified; Z68.35 Body mass index [BMI] 35.0-35.9, adult; Z88.5 Allergy status to narcotic agent; Z79.899 Other long term (current) drug therapy
CPT/HCPCS: 36415; 76830; 76857; 80053; 81025; 83550; 85025; 99284-25

== ENCOUNTER 2020-02-12 15:01 | Observation (INO) | payer MEDICAID ==
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
--- NOTE | 2020-02-12 18:22 | PCM.HP.2 ---
H&P History of Present Illness - General Date of Service: 02/12/20 Admit Problem/Dx: Admission Diagnosis/Problem Admission Diagnosis/Problem Anemia Source of Information: Patient, Provider History Limitations: Reports: No Limitations - History of Present Illness Initial Comments - Free Text/Narative: CC: My chest is hurting HPI: Steffany presents to the emergency room today from the clinic after she complained of chest pain. She was being evaluated for iron injections to help with her worsening anemia and reported that she has had chest pain for 2 days so she was sent to the emergency room. She describes a pressure-like pain in the lower middle portion of her chest. It started out as mild yesterday and has progressed to the point that it is now moderate to moderately severe and is getting worse rather than getting better. The pain does not radiate. It does get a little worse with activity. It does get a little better with rest. She has tried ibuprofen with mild improvement. She feels short of breath, especially with activity. This has been steadily getting worse over the past couple of weeks. She has had similar episodes in the past when her hemoglobin has dropped low. She reports heavy vaginal bleeding about 2 months ago. It did improve for a month but then over the last month has been bleeding regularly though not as large quantity. She is being considered for a D&C and has been following with ELIGIBILITY TECHNICIAN specialist. No change in bowel or bladder habits. She does have some dizziness, especially with activity but has not had a syncopal episode. No fevers or chills. No sick contacts. She has had about 8 blood transfusions over the course of her life. Work-up in the emergency room revealed hemoglobin near 7. She is still having chest pain. A blood transfusion was planned but unfortunately no blood is available at this time because of an antibody. Blood will be available tomorrow. She will be admitted for observation and plan for blood transfusion tomorrow. - Related Data Allergies/Adverse Reactions: Allergies Allergy/AdvReac Type Severity Reaction Status Date / Time morphine AdvReac Vomiting Verified 02/12/20 15:40 Home Medications: Home Meds Vitamin B Complex/Folic Acid [Vitamin B-100 Complex] 1 tab PO DAILY 09/14/17 [History] traZODone HCl [Trazodone HCl] 50 mg PO BEDTIME 06/03/18 [History] Pregabalin [Lyrica] 300 mg PO BEDTIME 05/02/19 [History] Pantoprazole [ProTONIX] 40 mg PO DAILY #30 tab.cr 05/03/19 [Rx] Albuterol Sulfate [Albuterol Sulfate Hfa] 1 - 2 puff IN QID PRN 09/01/19 [History] Cetirizine [ZyrTEC] 10 mg PO DAILY 09/01/19 [History] rOPINIRole [Requip] 0.5 mg PO BEDTIME 09/01/19 [History] Fluticasone Propionate [Flonase] 2 spray NS DAILY 09/07/19 [History] Iron,Carbonyl/Ascorbic Acid [Iron 100-Vitamin C Tablet] 1 each PO BID 09/07/19 [History] Folic Acid 1 mg PO DAILY 09/08/19 [History] Past Medical History HEENT History: Reports: Allergic Rhinitis, Impaired Vision Other HEENT History: wears glasses Respiratory History: Reports: Pneumonia, Recurrent Gastrointestinal History: Reports: Cholelithiasis, GERD Genitourinary History: Reports: UTI, Recurrent ELIGIBILITY TECHNICIAN History: Reports: Musculoskeletal History: Reports: Other (See Below) Other Musculoskeletal History: complex regional pain disorder Neurological History: Reports: Concussion, Head Trauma Psychiatric History: Reports: Addiction Endocrine/Metabolic History: Reports: Obesity/BMI 30+ Hematologic History: Reports: Anemia, Blood Transfusion(s), Iron Deficiency Dermatologic History: Reports: Cellulitis - Infectious Disease History Infectious Disease History: Reports: Scarlet Fever - Past Surgical History Head Surgeries/Procedures: Reports: None HEENT Surgical History: Reports: None Respiratory Surgical History: Reports: None GI Surgical History: Reports: Cholecystectomy, Colonoscopy, EGD Female Surgical History: Reports: Tubal Ligation Endocrine Surgical History: Reports: None Neurological Surgical History: Reports: None Musculoskeletal Surgical History: Reports: None Dermatological Surgical History: Reports: Skin Graft Social & Family History - Family History Family Medical History: No Pertinent Family History Other Oncologic Family History: multiple types of cancer run in the family - Tobacco Use Tobacco Use Status *Q: Current Every Day Tobacco User Years of Tobacco use: 20 Packs/Tins Daily: 0.5 - Caffeine Use Caffeine Use: Reports: None - Alcohol Use Alcohol Use History: Yes Alcohol Use in Last Twelve Months: Yes Alcohol Use Frequency: Monthly - Recreational Drug Use Recreational Drug Use: No - Living Situation & Occupation Occupation: Employed (works in [employer] H&P Review of Systems - Review of Systems: Review Of Systems: See Below Free Text/Narrative: A complete 12 point review of systems was obtained. Pertinent positives and negatives are noted in the history of present illness. All other systems were reviewed and were negative except as noted. Exam - Exam Exam: See Below - Vital Signs Vital Signs: Last Vital Signs Temp 35.1 C L 02/12/20 15:40 Pulse 82 02/12/20 17:25 Resp 17 02/12/20 17:25 BP 105/52 L 02/12/20 17:25 Pulse Ox 99 02/12/20 17:25 Weight: 102.6 kg - Exam Quality Assessment: No: Supplemental Oxygen General: Alert, Oriented, Cooperative. No: Mild Distress HEENT: Conjunctiva Clear, Mucosa Moist & [place] Neck: Supple, Trachea Midline Lungs: Clear to Auscultation, Normal Respiratory Effort Cardiovascular: Regular Rate, Regular Rhythm. No: Systolic Murmur GI/Abdominal Exam: Normal Bowel Sounds, Soft, No Distention, Tender (mild lower mid abdomen ) Extremities: No Pedal Edema. No: Increased Warmth Peripheral Pulses: 2+: Dorsalis Pedis (L), Dorsalis Pedis (R) Skin: Warm, Dry Neuro Extensive - Mental Status: Alert, Oriented x3, Nl Response to Commands Neuro Extensive - Motor, Sensory, Reflexes: No: Dysarthria, Abnormal Motor, Tremor Psychiatric: Alert, Normal Affect - Patient Data Lab Results Last 24 hrs: Laboratory Results - last 24 hr 02/12/20 02/12/20 02/12/20 Range/Units 17:05 17:05 17:05 WBC 6.9 (4.5-11.0) K/uL RBC 3.87 (3.30-5.50) M/uL Hgb 7.6 L (12.0-15.0) g/dL Hct 28.2 L (36.0-48.0) % MCV 73 L (80-98) fL MCH 20 L (27-31) pg MCHC 27 L (32-36) % Plt Count 131 L (150-400) K/uL PT 10.1 (9.5-12.0) sec INR 0.93 (0.80-1.20) Sodium 137 L (140-148) mmol/L Potassium 3.8 (3.6-5.2) mmol/L Chloride 102 (100-108) mmol/L Carbon Dioxide 27 (21-32) mmol/L Anion Gap 11.8 (5.0-14.0) mmol/L BUN 12 (7-18) mg/dL Creatinine 0.7 (0.6-1.0) mg/dL Est Cr Clr Drug Dosing 87.64 mL/min Estimated GFR (MDRD) > 60 (>60) Glucose 100 (74-106) mg/dL Calcium 8.2 L (8.5-10.1) mg/dL Total Bilirubin 0.2 (0.2-1.0) mg/dL AST 15 (15-37) U/L ALT 23 (12-78) U/L Alkaline Phosphatase 84 (46-116) U/L Total Protein 6.6 (6.4-8.2) g/dL Albumin 2.9 L (3.4-5.0) g/dL Globulin 3.7 H (2.3-3.5) g/dL Albumin/Globulin Ratio 0.8 L (1.2-2.2) Blood Type Gel Antibody Screen Crossmatch 02/12/20 Range/Units 17:05 WBC (4.5-11.0) K/uL RBC (3.30-5.50) M/uL Hgb (12.0-15.0) g/dL Hct (36.0-48.0) % MCV (80-98) fL MCH (27-31) pg MCHC (32-36) % Plt Count (150-400) K/uL PT (9.5-12.0) sec INR (0.80-1.20) Sodium (140-148) mmol/L Potassium (3.6-5.2) mmol/L Chloride (100-108) mmol/L Carbon Dioxide (21-32) mmol/L Anion Gap (5.0-14.0) mmol/L BUN (7-18) mg/dL Creatinine (0.6-1.0) mg/dL Est Cr Clr Drug Dosing mL/min Estimated GFR (MDRD) (>60) Glucose (74-106) mg/dL Calcium (8.5-10.1) mg/dL Total Bilirubin (0.2-1.0) mg/dL AST (15-37) U/L ALT (12-78) U/L Alkaline Phosphatase (46-116) U/L Total Protein (6.4-8.2) g/dL Albumin (3.4-5.0) g/dL Globulin (2.3-3.5) g/dL Albumin/Globulin Ratio (1.2-2.2) Blood Type A POSITIVE Gel Antibody Screen Positive A* Crossmatch See Detail Result Diagrams: 02/12/20 17:05 02/12/20 17:05 Sepsis Event Note - Evaluation Sepsis Screening Result: No Definite Risk - Focused Exam Vital Signs: Vital Signs Temp Pulse Resp BP Pulse Ox 02/12/20 17:25 82 17 105/52 L 99 02/12/20 16:55 88 117/62 02/12/20 15:55 85 122/66 02/12/20 15:40 35.1 C L 92 21 H 131/71 97 02/12/20 15:27 35.1 C L 92 21 H 131/71 97 *Q Meaningful Use (ADM) - VTE *Q VTE Pharmacological Contraindications *Q: Active Hemorrhage - VTE Risk Assess *Q Each Risk Factor Represents 1 Point: Obesity ( BMI > 25 kg/m2) Total Score 1 Point Risk Factors: 1 Each Risk Factor Represents 2 Points: None Total Score 2 Point Risk Factors: 0 Each Risk Factor Represents 3 Points: None Total Score 3 Point Risk Factors: 0 Each Risk Factor Represents 5 Points: None Total Score 5 Point Risk Factors: 0 Venous Thromboembolism Risk Factor Score *Q: 1 - Problem List (1) Menometrorrhagia SNOMED Code(s): 064351039 ICD Code: N92.1 - EXCESSIVE AND FREQUENT MENSTRUATION WITH IRREGULAR CYCLE Status: Acute Current Visit: Yes (2) Anemia due to blood loss, acute SNOMED Code(s): 703508774 ICD Code: D62 - ACUTE POSTHEMORRHAGIC ANEMIA Status: Acute Current Visit: Yes (3) Chest pain SNOMED Code(s): 29064404 ICD Code: R07.9 - CHEST PAIN, UNSPECIFIED Status: Acute Current Visit: Yes Qualifiers: Chest pain type: other chest pain Qualified Code(s): R07.89 - Other chest p ain; R07.8 - Other chest pain Problem List Initiated/Reviewed/Updated: Yes Orders Last 24hrs: Active Orders 24 hr Category Date Time Status Patient Status Manage Transfer [TRANSFER] Routine ADT 02/12/20 18:14 Ordered EKG Documentation Completion [RC] ASDIRECTED Care 02/12/20 16:55 Active ANTIBODY IDENTIFICATION [BBK] Stat Lab 02/12/20 17:05 Results RED BLOOD CELLS LP [BBK] Stat Lab 02/12/20 17:05 Results TYPE AND SCREEN [BBK] Stat Lab 02/12/20 17:05 Results Resuscitation Status Routine Resus Stat 02/12/20 18:16 Ordered EKG 12 Lead [EK] Stat Ther 02/12/20 16:54 Ordered Assessment/Plan Comment:: ASSESSMENT AND PLAN - Menometrorrhagia-complicated by anemia due to blood loss. She is now symptomatic with a hemoglobin near 7 and active chest pain. She has a history of similar symptoms and episodes. She is working with ELIGIBILITY TECHNICIAN specialist to try to put a stop to the vaginal bleeding. With her active symptoms she would benefit from blood transfusion. Unfortunately she has an antibody and no blood will be available until tomorrow. -Admit for observation and symptomatic management of chest pain -Transfuse 2 units of blood tomorrow when blood is available -Outpatient follow-up with her ELIGIBILITY TECHNICIAN specialist in [place] Tobacco dependence-she is considering cessation and believes she can do so cold . Maintenance issues - - DVT prophylaxis -mechanical with active hemorrhage - GI prophylaxis -continue home PPI - Nutrition -regular - Duncan catheter -not indicated CODE STATUS -full code Admission justification -patient will be referred observation status for sympt omatic management of her noncardiac chest pain and blood transfusion when available tomorrow Disposition -I would anticipate discharge home after the hospital stay, either tomorrow or the next morning. Primary care physician - Shakila Goyal M.D. - Mortality Measure Prognosis:: Good
[2020-02-12] MEDS ORDERED: LORazepam 2 MG/ML SDV IVPUSH PRN (19:27)
[2020-02-12] MEDS ORDERED: Albuterol 8 GM Inhaler INH PRN (19:27)
[2020-02-12] MEDS ORDERED: Ondansetron 4 MG/2 ML SDV IV PRN (19:27)
[2020-02-12] MEDS ORDERED: Ondansetron 4 MG Tab.DIS PO PRN (19:27)
[2020-02-12] MEDS ORDERED: Magnesium Hydroxide 400 MG/5 ML Susp 30 ML Cup PO PRN (19:27)
[2020-02-12] MEDS: Acetaminophen 325 MG Tab PO PRN (20:57)
[2020-02-12] MEDS: Ibuprofen 600 MG Tab PO PRN (20:58)
[2020-02-12] MEDS ORDERED: IRON CARBONYL PO SCH (21:00)
[2020-02-12] MEDS ORDERED: traZODone 50 MG Tab PO SCH (21:00)
[2020-02-12] MEDS ORDERED: [UNRECOGNIZED DRUG - OTHER] PO SCH (21:00)
[2020-02-12] MEDS ORDERED: ASCORBIC ACID PO SCH (21:00)
[2020-02-12] MEDS ORDERED: Pregabalin 100 MG Cap PO SCH (21:00)
[2020-02-12] MEDS ORDERED: rOPINIRole 0.5 MG Tab PO SCH (21:00)
[2020-02-13] MEDS ORDERED: Albuterol 8 GM Inhaler INH PRN (07:17)
[2020-02-13] MEDS ORDERED: Pantoprazole 40 MG Tab.CR PO SCH (07:30)
[2020-02-13] MEDS: Ibuprofen 600 MG Tab PO PRN (08:14)
[2020-02-13] MEDS: Acetaminophen 325 MG Tab PO PRN (08:16)
[2020-02-13] MEDS ORDERED: Folic Acid 1 MG Tab PO SCH (09:00)
[2020-02-13] MEDS ORDERED: Cetirizine 10 MG Tab PO SCH (09:00)
[2020-02-13] MEDS ORDERED: Vitamin B Complex Tab PO SCH (09:00)
[2020-02-13] MEDS ORDERED: Fluticasone Propionate Nasal Spray 16 GM Bottle NAS SCH ×2 (09:00)
--- NOTE | 2020-02-13 12:05 | PCM.PN ---
- General Info Date of Service: 02/13/20 Subjective Update: No acute events overnight. No significant bleeding noted. She had a headache last night but this has resolved. Mild lower abdominal discomfort which is chronic and stable. Still waiting for blood to be available for transfusion. Functional Status: Reports: Pain Controlled, Tolerating Diet - Review of Systems Gastrointestinal: Reports: Abdominal Pain - Patient Data Vitals - Most Recent: Last Vital Signs Temp 36.4 C 02/13/20 11:11 Pulse 94 02/13/20 11:11 Resp 16 02/13/20 11:11 BP 113/60 02/13/20 11:11 Pulse Ox 99 02/13/20 11:11 Weight - Most Recent: 102.6 kg Lab Results Last 24 Hours: Laboratory Results - last 24 hr 02/12/20 02/12/20 02/12/20 Range/Units 17:05 17:05 17:05 WBC 6.9 (4.5-11.0) K/uL RBC 3.87 (3.30-5.50) M/uL Hgb 7.6 L (12.0-15.0) g/dL Hct 28.2 L (36.0-48.0) % MCV 73 L (80-98) fL MCH 20 L (27-31) pg MCHC 27 L (32-36) % Plt Count 131 L (150-400) K/uL PT 10.1 (9.5-12.0) sec INR 0.93 (0.80-1.20) Sodium 137 L (140-148) mmol/L Potassium 3.8 (3.6-5.2) mmol/L Chloride 102 (100-108) mmol/L Carbon Dioxide 27 (21-32) mmol/L Anion Gap 11.8 (5.0-14.0) mmol/L BUN 12 (7-18) mg/dL Creatinine 0.7 (0.6-1.0) mg/dL Est Cr Clr Drug Dosing 87.64 mL/min Estimated GFR (MDRD) > 60 (>60) Glucose 100 (74-106) mg/dL Calcium 8.2 L (8.5-10.1) mg/dL Total Bilirubin 0.2 (0.2-1.0) mg/dL AST 15 (15-37) U/L ALT 23 (12-78) U/L Alkaline Phosphatase 84 (46-116) U/L Total Protein 6.6 (6.4-8.2) g/dL Albumin 2.9 L (3.4-5.0) g/dL Globulin 3.7 H (2.3-3.5) g/dL Albumin/Globulin Ratio 0.8 L (1.2-2.2) Blood Type Gel Antibody Screen Antibody Identification Crossmatch 02/12/20 Range/Units 17:05 WBC (4.5-11.0) K/uL RBC (3.30-5.50) M/uL Hgb (12.0-15.0) g/dL Hct (36.0-48.0) % MCV (80-98) fL MCH (27-31) pg MCHC (32-36) % Plt Count (150-400) K/uL PT (9.5-12.0) sec INR (0.80-1.20) Sodium (140-148) mmol/L Potassium (3.6-5.2) mmol/L Chloride (100-108) mmol/L Carbon Dioxide (21-32) mmol/L Anion Gap (5.0-14.0) mmol/L BUN (7-18) mg/dL Creatinine (0.6-1.0) mg/dL Est Cr Clr Drug Dosing mL/min Estimated GFR (MDRD) (>60) Glucose (74-106) mg/dL Calcium (8.5-10.1) mg/dL Total Bilirubin (0.2-1.0) mg/dL AST (15-37) U/L ALT (12-78) U/L Alkaline Phosphatase (46-116) U/L Total Protein (6.4-8.2) g/dL Albumin (3.4-5.0) g/dL Globulin (2.3-3.5) g/dL Albumin/Globulin Ratio (1.2-2.2) Blood Type A POSITIVE Gel Antibody Screen Positive A* Antibody Identification Anti-E Crossmatch See Detail Med Orders - Current: Current Medications Acetaminophen (Tylenol) 650 mg PO Q4H PRN PRN Reason: Pain (Mild 1-3)/fever Last Admin: 02/13/20 08:16 Dose: 650 mg Documented by: Albuterol (Ventolin Hfa) 0 gm INH QID PRN PRN Reason: Shortness of Breath Cetirizine HCl (Zyrtec) 10 mg PO DAILY [facility] Last Admin: 02/13/20 08:14 Dose: Not Given Documented by: Fluticasone Propionate (Flonase) 0 gm YONATHAN DAILY [facility] Last Admin: 02/13/20 08:13 Dose: Not Given Documented by: Folic Acid (Folic Acid) 1 mg PO DAILY [facility] Last Admin: 02/13/20 08:11 Dose: 1 mg Documented by: Ibuprofen (Motrin) 600 mg PO Q6H PRN PRN Reason: Pain/Fever Last Admin: 02/13/20 08:14 Dose: 600 mg Documented by: Lorazepam (Ativan) 0.5 mg IVPUSH Q4H PRN PRN Reason: Nausea/Vomiting Magnesium Hydroxide (Milk Of Magnesia) 30 ml PO Q12H PRN PRN Reason: Constipation Non-Formulary Medication (Iron,Carbonyl/Ascorbic Acid [Iron 100-Vitamin C Tablet]) 1 each PO BID [facility] Ondansetron HCl (Zofran) 4 mg IV Q6H PRN PRN Reason: Nausea/Vomiting Ondansetron HCl (Zofran Odt) 4 mg PO Q6H PRN PRN Reason: Nausea able to take PO Pantoprazole Sodium (Protonix) 40 mg PO ACBREAKFAST [facility] Last Admin: 02/13/20 07:38 Dose: 40 mg Documented by: Pregabalin (Lyrica) 300 mg PO BEDTIME [facility] Last Admin: 02/12/20 20:55 Dose: Not Given Documented by: Ropinirole HCl (Requip) 0.5 mg PO BEDTIME [facility] Last Admin: 02/12/20 20:55 Dose: 0.5 mg Documented by: Senna/Docusate Sodium (Senna Plus) 1 tab PO BID PRN PRN Reason: Constipation Trazodone HCl (Trazodone) 50 mg PO BEDTIME [facility] Last Admin: 02/12/20 20:55 Dose: 50 mg Documented by: Vitamin B Complex (Vitamin B Complex) 1 each PO DAILY [facility] Last Admin: 02/13/20 08:12 Dose: 1 each Documented by: - Exam Quality Assessment: No: Supplemental Oxygen General: Alert, Oriented, Cooperative, No Acute Distress Lungs: Normal Respiratory Effort GI/Abdominal Exam: Soft, No Distention Extremities: No Pedal Edema Psy/Mental Status: Alert, Normal Affect Sepsis Event Note - Evaluation Sepsis Screening Result: No Definite Risk - Focused Exam Vital Signs: Vital Signs Temp Pulse Resp BP Pulse Ox 02/13/20 11:11 36.4 C 94 16 113/60 99 02/13/20 07:32 36.3 C 81 14 120/56 L 100 02/13/20 02:03 36.6 C 88 16 120/60 96 - Problem List & Annotations (1) Menometrorrhagia SNOMED Code(s): 838070322 Code(s): N92.1 - EXCESSIVE AND FREQUENT MENSTRUATION WITH IRREGULAR CYCLE Status: Acute Current Visit: Yes (2) Anemia due to blood loss, acute SNOMED Code(s): 212373171 Code(s): D62 - ACUTE POSTHEMORRHAGIC ANEMIA Status: Acute Current Visit: Yes (3) Chest pain SNOMED Code(s): 15444449 Code(s): R07.9 - CHEST PAIN, UNSPECIFIED Status: Acute Current Visit: Yes Qualifiers: Chest pain type: other chest pain Qualified Code(s): R07.89 - Other chest pain; R07.8 - Other chest pain - Problem List Review Problem List Initiated/Reviewed/Updated: Yes - My Orders Last 24 Hours: My Active Orders 02/12/20 Dinner Regular Diet [DIET] 02/12/20 18:16 Resuscitation Status Routine 02/12/20 19:27 Acetaminophen [TylenoL] 650 mg PO Q4H PRN Docusate Sodium/Sennosides [Senna Plus] 1 tab PO BID PRN Ibuprofen [Motrin] 600 mg PO Q6H PRN LORazepam [Ativan] 0.5 mg IVPUSH Q4H PRN Magnesium Hydroxide [Milk of Magnesia] 30 ml PO Q12H PRN Ondansetron [Zofran ODT] 4 mg PO Q6H PRN Ondansetron [Zofran] 4 mg IV Q6H PRN 02/12/20 19:27 Patient Status [ADT] Routine Intake and Output [RC] QSHIFT Notify Provider Vital Signs [RC] ASDIRECTED Oxygen Therapy [RC] PRN Up ad Alize [RC] ASDIRECTED VTE/DVT Education [RC] Per Unit Routine Vital Signs [RC] Q4H Sequential Compression Device [OM.PC] Routine Transfuse Red Blood Cells [COMM] Routine VTE Pharmacological Contraindications [AST] Routine 02/12/20 21:00 Iron,Carbonyl/Ascorbic Acid [Iron 100-Vitamin C Tablet] 1 each PO BID Pregabalin [Lyrica] 300 mg PO BEDTIME rOPINIRole [Requip] 0.5 mg PO BEDTIME traZODone 50 mg PO BEDTIME 02/13/20 07:17 Albuterol [Ventolin HFA] 0 gm INH QID PRN 02/13/20 07:30 Pantoprazole [ProTONIX] 40 mg PO ACBREAKFAST 02/13/20 09:00 Cetirizine [ZyrTEC] 10 mg PO DAILY Fluticasone Propionate [Flonase] 0 gm YONATHAN DAILY Folic Acid 1 mg PO DAILY Vitamin B Complex 1 each PO DAILY 02/14/20 05:00 CBC W/O DIFF,HEMOGRAM [HEME] Timed (1) - Plan Plan:: ASSESSMENT AND PLAN - Menometrorrhagia-complicated by anemia due to blood loss. She is now symptomatic with a hemoglobin near 7 and active chest pain. Still waiting for blood. Clinically stable. Chest pain is better today. -symptomatic management of chest pain -Transfuse 2 units of blood tomorrow when blood is available -Outpatient follow-up with her [facility] COORDIN[facility] specialist in [place] Tobacco dependence-she is considering cessation and believes she can do so cold . Maintenance issues - - DVT prophylaxis -mechanical with active hemorrhage - GI prophylaxis -continue home PPI - Nutrition -regular Admission justification -patient will be referred observation status for symptomatic management of her noncardiac chest pain and blood transfusion when available tomorrow Disposition -I would anticipate discharge home after the hospital stay, either this evening after blood transfusion or tomorrow morning Primary care physician - Shakila Goyal M.D.
[2020-02-13 20:30] VITALS: BP 143/68
[2020-02-13 20:38] VITALS: PULSE 81
--- NOTE | 2020-02-13 23:28 | PCM.DCSUM1 ---
Discharge Summary - Hospital Course Brief History: 44-year-old female with history of metromenorrhagia who presented with chest pain and anemia. She was sent from the clinic to the emergency room for evaluation of the chest pain. She was admitted for transfusion to manage her anemia with chest pain. - Discharge Data Discharge Date: 02/13/20 Discharge Disposition: Home, Self-Care 01 Condition: Good - Referral to Home Health Primary Care Physician: Shakila Ortiz PA-C - Discharge Diagnosis/Problem(s) (1) Menometrorrhagia SNOMED Code(s): 942636645 ICD Code: N92.1 - EXCESSIVE AND FREQUENT MENSTRUATION WITH IRREGULAR CYCLE Status: Acute (2) Anemia due to blood loss, acute SNOMED Code(s): 454748634 ICD Code: D62 - ACUTE POSTHEMORRHAGIC ANEMIA Status: Acute (3) Chest pain SNOMED Code(s): 31092939 ICD Code: R07.9 - CHEST PAIN, UNSPECIFIED Status: Acute Qualifiers: Chest pain type: other chest pain Qualified Code(s): R07.89 - Other chest pain; R07.8 - Other chest pain - Patient Summary/Data Hospital Course: Steffany presented initially to the clinic for evaluation and consideration of an iron transfusion. She has known anemia. Her hemoglobin was 7.6. She reported that she was having chest pain so she was sent to the emergency room. Cardiac work-up in the emergency room was unremarkable. She was admitted to the hospital for management of her anemia which was symptomatic with her chest pain. Her blood transfusion was delayed because of antibodies in her blood. She did eventually receive 2 units of blood via transfusion after it was available. She tolerated the transfusion well. Her chest pain resolved. Her vitals were stable. She felt well enough to go home at this point and was discharged home in good condition. She has follow-up scheduled in 2 days. - Patient Instructions Diet: Usual Diet as Tolerated Driving: May Drive Today Showering/Bathing: July Shower Notify Provider of: Fever, Increased Pain, Drainage, Nausea and/or Vomiting - Discharge Plan Home Medications: Home Meds Vitamin B Complex/Folic Acid [Vitamin B-100 Complex] 1 tab PO DAILY 09/14/17 [History] traZODone HCl [Trazodone HCl] 50 mg PO BEDTIME 06/03/18 [History] Pregabalin [Lyrica] 300 mg PO BEDTIME 05/02/19 [History] Pantoprazole [ProTONIX] 40 mg PO DAILY #30 tab.cr 05/03/19 [Rx] Albuterol Sulfate [Albuterol Sulfate Hfa] 1 - 2 puff IN QID PRN 09/01/19 [History] Cetirizine [ZyrTEC] 10 mg PO DAILY 09/01/19 [History] rOPINIRole [Requip] 0.5 mg PO BEDTIME 09/01/19 [History] Fluticasone Propionate [Flonase] 2 spray NS DAILY 09/07/19 [History] Iron,Carbonyl/Ascorbic Acid [Iron 100-Vitamin C Tablet] 1 each PO BID 09/07/19 [History] Folic Acid 1 mg PO DAILY 09/08/19 [History] Patient Handouts: Blood Transfusion, Adult, Care After, [id number] Forms: ED Department Discharge Referrals: Shakila Ortiz PA-C [Primary Care Provider] - - Discharge Summary/Plan Comment DC Time >30 min.: No - Patient Data Vitals - Most Recent: Last Vital Signs Temp 36.4 C 02/13/20 20:30 Pulse 81 02/13/20 20:30 Resp 16 02/13/20 20:30 BP 143/68 H 02/13/20 20:30 Pulse Ox 100 02/13/20 20:29 Weight - Most Recent: 102.6 kg I&O - Last 24 hours: Intake & Output 02/13/20 02/13/20 02/14/20 14:59 22:59 06:59 Intake Total 0 3769 Balance 0 3769 Lab Results - Last 24 hrs: Laboratory Results - last 24 hr 02/12/20 Range/Units 17:05 Blood Type A POSITIVE Gel Antibody Screen Positive A* Antibody Identification Anti-E Crossmatch See Detail Med Orders - Current: Current Medications Discontinued Medications Acetaminophen (Tylenol) 650 mg PO Q4H PRN PRN Reason: Pain (Mild 1-3)/fever Last Admin: 02/13/20 08:16 Dose: 650 mg Documented by: Albuterol (Ventolin Hfa) 0 gm INH QID PRN PRN Reason: Shortness of Breath Cetirizine HCl (Zyrtec) 10 mg PO DAILY NANCIE Last Admin: 02/13/20 08:14 Dose: Not Given Documented by: Fluticasone Propionate (Flonase) 0 gm YONATHAN DAILY [facility] Last Admin: 02/13/20 08:13 Dose: Not Given Documented by: Folic Acid (Folic Acid) 1 mg PO DAILY [facility] Last Admin: 02/13/20 08:11 Dose: 1 mg Documented by: Ibuprofen (Motrin) 600 mg PO Q6H PRN PRN Reason: Pain/Fever Last Admin: 02/13/20 08:14 Dose: 600 mg Documented by: Lorazepam (Ativan) 0.5 mg IVPUSH Q4H PRN PRN Reason: Nausea/Vomiting Magnesium Hydroxide (Milk Of Magnesia) 30 ml PO Q12H PRN PRN Reason: Constipation Non-Formulary Medication (Iron,Carbonyl/Ascorbic Acid [Iron 100-Vitamin C Tablet]) 1 each PO BID [facility] Ondansetron HCl (Zofran) 4 mg IV Q6H PRN PRN Reason: Nausea/Vomiting Ondansetron HCl (Zofran Odt) 4 mg PO Q6H PRN PRN Reason: Nausea able to take PO Pantoprazole Sodium (Protonix) 40 mg PO ACBREAKFAST [facility] Last Admin: 02/13/20 07:38 Dose: 40 mg Documented by: Pregabalin (Lyrica) 300 mg PO BEDTIME [facility] Last Admin: 02/12/20 20:55 Dose: Not Given Documented by: Ropinirole HCl (Requip) 0.5 mg PO BEDTIME [facility] Last Admin: 02/12/20 20:55 Dose: 0.5 mg Documented by: Senna/Docusate Sodium (Senna Plus) 1 tab PO BID PRN PRN Reason: Constipation Trazodone HCl (Trazodone) 50 mg PO BEDTIME [facility] Last Admin: 02/12/20 20:55 Dose: 50 mg Documented by: Vitamin B Complex (Vitamin B Complex) 1 each PO DAILY [facility] Last Admin: 02/13/20 08:12 Dose: 1 each Documented by: *Q Meaningful Use (DIS) - VTE *Q VTE Pharmacological Contraindications *Q: Active Hemorrhage
== END 2020-02-13 20:45 | disposition home or self-care (01) ==
LOC: JP.ED 15:01 → JP.MS 18:14 → UNDOADMIN 18:28 → JP.MS 18:28
PROVIDERS: ADMIT Internal Medicine; ATTEND Internal Medicine
DX: R07.9 Chest pain, unspecified (principal); D62 Acute posthemorrhagic anemia; N92.1 Excessive and frequent menstruation with irregular cycle; E66.9 Obesity, unspecified; Z88.5 Allergy status to narcotic agent; Z79.899 Other long term (current) drug therapy; Z68.38 Body mass index [BMI] 38.0-38.9, adult
CPT/HCPCS: 36415; 36430; 80053; 85027; 85610; 86850; 86870; 86900; 86901; 86920; 86922; 93005; A9270-GY; P9016

== ENCOUNTER 2020-03-04 22:48 | Emergency (ER) | payer MEDICAID ==
[2020-03-04 23:30] VITALS: BP 122/69; PULSE 93
--- NOTE | 2020-03-05 00:04 | EDM.PDOC ---
ED HPI GENERAL MEDICAL PROBLEM - General Chief Complaint: INSOLE PRESSER Problem Stated Complaint: BLEEDING, STOMACH PAIN Time Seen by Provider: 03/05/20 00:00 Source of Information: Reports: Patient, Old Records, RN History Limitations: Reports: No Limitations - History of Present Illness INITIAL COMMENTS - FREE TEXT/NARRATIVE: 44 yo female presents with ongoing vag bleeding. Was admitted over night early in the week and given 2 units of blood for anemia that developed from this process. She is scheduled for a D&C on 03/07. No dysuria. Has MI. Intermittent sharp pain in pelvis, not now. Is s/p tubal ligation. Is sexually active. No recent preg tests. Had an US about 2 mos ago. 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) (none today) - Related Data Allergies Allergy/AdvReac Type Severity Reaction Status Date / Time morphine AdvReac Vomiting Verified 03/04/20 23:25 Home Meds: Home Meds Vitamin B Complex/Folic Acid [Vitamin B-100 Complex] 1 tab PO DAILY 09/14/17 [History] traZODone HCl [Trazodone HCl] 50 mg PO BEDTIME PRN 06/03/18 [History] Pregabalin [Lyrica] 300 mg PO BEDTIME PRN 05/02/19 [History] Pantoprazole [ProTONIX] 40 mg PO DAILY #30 tab.cr 05/03/19 [Rx] Albuterol Sulfate [Albuterol Sulfate Hfa] 1 - 2 puff IN QID PRN 09/01/19 [History] Cetirizine [ZyrTEC] 10 mg PO DAILY 09/01/19 [History] rOPINIRole [Requip] 0.5 mg PO BEDTIME PRN 09/01/19 [History] Fluticasone Propionate [Flonase] 2 spray NS DAILY 09/07/19 [History] Iron,Carbonyl/Ascorbic Acid [Iron 100-Vitamin C Tablet] 1 each PO BID 09/07/19 [History] Folic Acid 1 mg PO DAILY 09/08/19 [History] Past Medical History HEENT History: Reports: Allergic Rhinitis, Impaired Vision Other HEENT History: wears glasses Respiratory History: Reports: Pneumonia, Recurrent Gastrointestinal History: Reports: Cholelithiasis, GERD Genitourinary History: Reports: UTI, Recurrent INSOLE PRESSER History: Reports: Dysfunctional Uterine Bleeding, , Other (See Below) Other INSOLE PRESSER History: enlarged uterus Musculoskeletal History: Reports: Other (See Below) Other Musculoskeletal History: complex regional pain disorder Neurological History: Reports: Concussion, Head Trauma Psychiatric History: Reports: Addiction Endocrine/Metabolic History: Reports: Obesity/BMI 30+ Hematologic History: Reports: Anemia, Blood Transfusion(s), Iron Deficiency Dermatologic History: Reports: Cellulitis - Infectious Disease History Infectious Disease History: Reports: Chicken Pox, Scarlet Fever - Past Surgical History Head Surgeries/Procedures: Reports: None HEENT Surgical History: Reports: None Respiratory Surgical History: Reports: None GI Surgical History: Reports: Cholecystectomy, Colonoscopy, EGD Female Surgical History: Reports: Tubal Ligation, Other (See Below) Other Female Surgeries/Procedures: menorhagia Endocrine Surgical History: Reports: None Dermatological Surgical History: Reports: Skin Graft Social & Family History - Family History Family Medical History: No Pertinent Family History Other Oncologic Family History: multiple types of cancer run in the family - Tobacco Use Tobacco Use Status *Q: Current Every Day Tobacco User Years of Tobacco use: 30 Packs/Tins Daily: 0.5 - Caffeine Use Caffeine Use: Reports: None - Recreational Drug Use Recreational Drug Use: No - Living Situation & Occupation Occupation: Employed (works in [email or web address] ED ROS GENERAL - Review of Systems Review Of Systems: See Below Constitutional: Reports: Malaise, Fatigue HEENT: Reports: No Symptoms Respiratory: Reports: No Symptoms Cardiovascular: Reports: Dyspnea on Exertion Endocrine: Reports: No Symptoms GI/Abdominal: Reports: No Symptoms : Reports: Pain (intermittent sharp pain) Musculoskeletal: Reports: No Symptoms Skin: Reports: No Symptoms Neurological: Reports: No Symptoms Psychiatric: Reports: No Symptoms ED EXAM, RENAL/ - Physical Exam Exam: See Below Exam Limited By: No Limitations General Appearance: Alert, WD/WN, No Apparent Distress, Obese Eye Exam: Bilateral Eye: Normal Inspection, PERRL Ears: Normal External Exam, Normal Canal, Hearing Grossly Normal Nose: Normal Inspection, No Blood Throat/Mouth: Normal Inspection, Normal Lips, Normal Oropharynx, Normal Voice, No Airway Compromise Head: Atraumatic, Normocephalic Neck: Normal Inspection Respiratory/Chest: No Respiratory Distress, Lungs Clear, Normal Breath Sounds, No Accessory Muscle Use Cardiovascular: Regular Rate, Rhythm, No Edema GI/Abdominal: Normal Bowel Sounds, Soft, Non-Tender, No Distention (Female) Exam: Vaginal Bleeding, Other (no pelvic pain on abdominal exam) Back Exam: Normal Inspection. No: CVA Tenderness (R), CVA Tenderness (L) Extremities: Normal Inspection, Normal Range of Motion, Non-Tender, No Pedal Edema Neurological: Alert, Oriented, CN II-XII Intact, Normal Cognition, No Motor/Sensory Deficits Psychiatric: Normal Affect, Normal Mood Skin Exam: Warm, Dry, Intact, No Rash, Other (slight pallor) Course - Vital Signs Last Recorded V/S: Last Vital Signs Temp 37.0 C 03/04/20 23:28 Pulse 93 03/04/20 23:28 Resp 18 03/04/20 23:28 BP 122/69 03/04/20 23:28 Pulse Ox 99 03/04/20 23:28 Orthostatic Blood Pressure [ 117/68 Standing] Orthostatic Blood Pressure [ 109/57 Sitting] Orthostatic Blood Pressure [ 109/63 Supine] - Orders/Labs/Meds Orders: Active Orders 24 hr Category Date Time Status Orthostatic Vital Signs [RC] ASDIRECTED Care 03/04/20 23:45 Active Labs: Laboratory Tests 03/04/20 03/05/20 Range/Units 23:58 00:22 Hgb 8.8 L (12.0-15.0) g/dL Urine HCG, Qual Negative Departure - Departure Time of Disposition: 00:24 Disposition: Home, Self-Care 01 Condition: Fair Clinical Impression: Menorrhagia Qualifiers: Menorrhagia type: with regular cycle Qualified Code(s): N92.0 - Excessive and frequent menstruation with regular cycle Anemia Qualifiers: Anemia type: unspecified type Qualified Code(s): D64.9 - Anemia, unspecified - Discharge Information *PRESCRIPTION DRUG MONITORING PROGRAM REVIEWED*: Not Applicable *COPY OF PRESCRIPTION DRUG MONITORING REPORT IN PATIENT CARLOS: Not Applicable Referrals: Shakila Ortiz PA-C [Primary Care Provider] - Forms: ED Department Discharge Additional Instructions: Drink ample fluids. Take acetaminophen 1000 mg every 6 hrs as needed for pain relief. Keep appt for D&C for Saturday. Return as needed. Continue iron supplements. Sepsis Event Note (ED) - Evaluation Sepsis Screening Result: No Definite Risk - Focused Exam Vital Signs: Vital Signs Temp Pulse Resp BP Pulse Ox 03/04/20 23:28 37.0 C 93 18 122/69 99 - My Orders Last 24 Hours: My Active Orders 03/04/20 23:45 Orthostatic Vital Signs [RC] ASDIRECTED - Assessment/Plan Last 24 Hours: My Active Orders 03/04/20 23:45 Orthostatic Vital Signs [RC] ASDIRECTED
== END 2020-03-05 00:34 | disposition home or self-care (01) ==
LOC: JP.ED 22:48
DX: N92.0 Excessive and frequent menstruation with regular cycle (principal); D64.9 Anemia, unspecified; K21.9 Gastro-esophageal reflux disease without esophagitis; E66.9 Obesity, unspecified; Z68.38 Body mass index [BMI] 38.0-38.9, adult; Z88.5 Allergy status to narcotic agent
CPT/HCPCS: 36415; 81025; 85018; 99284

== ENCOUNTER 2020-03-21 23:16 | Emergency (ER) | payer MEDICAID ==
[2020-03-21 23:30] VITALS: BP 124/52; PULSE 101
[2020-03-21] MEDS ORDERED: Ketorolac 60 MG/2 ML SDV IM ONE (23:34)
--- NOTE | 2020-03-21 23:40 | EDM.PDOC ---
ED HPI GENERAL MEDICAL PROBLEM - General Chief Complaint: Lower Extremity Injury/Pain Stated Complaint: LEFT FOOT PAIN Time Seen by Provider: 03/21/20 23:25 Source of Information: Reports: Patient, Old Records History Limitations: Reports: No Limitations - History of Present Illness INITIAL COMMENTS - FREE TEXT/NARRATIVE: 44 yo female presents with progressive pain and redness to the L foot that began yesterday. There was no injury. She denies fever. No self treatment. Has not been to the clinic for this. Thinks she had something a few yrs ago that resolved after a week of indomethacin. No pHx of either gout or AODM. 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) Left Foot Pain Score (Numeric/FACES): 10 - Related Data Allergies Allergy/AdvReac Type Severity Reaction Status Date / Time morphine AdvReac Vomiting Verified 03/04/20 23:25 Home Meds: Home Meds Vitamin B Complex/Folic Acid [Vitamin B-100 Complex] 1 tab PO DAILY 09/14/17 [History] traZODone HCl [Trazodone HCl] 50 mg PO BEDTIME PRN 06/03/18 [History] Pregabalin [Lyrica] 300 mg PO BEDTIME PRN 05/02/19 [History] Pantoprazole [ProTONIX] 40 mg PO DAILY #30 tab.cr 05/03/19 [Rx] Albuterol Sulfate [Albuterol Sulfate Hfa] 1 - 2 puff IN QID PRN 09/01/19 [History] Cetirizine [ZyrTEC] 10 mg PO DAILY 09/01/19 [History] rOPINIRole [Requip] 0.5 mg PO BEDTIME PRN 09/01/19 [History] Fluticasone Propionate [Flonase] 2 spray NS DAILY 09/07/19 [History] Iron,Carbonyl/Ascorbic Acid [Iron 100-Vitamin C Tablet] 1 each PO BID 09/07/19 [History] Folic Acid 1 mg PO DAILY 09/08/19 [History] Indomethacin 50 mg PO Q8H #20 capsule 03/22/20 [Rx] cephALEXin [Cephalexin] 750 mg PO Q8H #30 capsule 03/22/20 [Rx] Past Medical History HEENT History: Reports: Allergic Rhinitis, Impaired Vision Other HEENT History: wears glasses Respiratory History: Reports: Pneumonia, Recurrent Gastrointestinal History: Reports: Cholelithiasis, GERD Genitourinary History: Reports: UTI, Recurrent 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: Dysfunctional Uterine Bleeding, , Other (See Below) 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: enlarged uterus Musculoskeletal History: Reports: Other (See Below) Other Musculoskeletal History: complex regional pain disorder Neurological History: Reports: Concussion, Head Trauma Psychiatric History: Reports: Addiction Endocrine/Metabolic History: Reports: Obesity/BMI 30+ Hematologic History: Reports: Anemia, Blood Transfusion(s), Iron Deficiency Dermatologic History: Reports: Cellulitis - Infectious Disease History Infectious Disease History: Reports: Chicken Pox, Scarlet Fever - Past Surgical History Head Surgeries/Procedures: Reports: None HEENT Surgical History: Reports: None Respiratory Surgical History: Reports: None GI Surgical History: Reports: Cholecystectomy, Colonoscopy, EGD Female Surgical History: Reports: Tubal Ligation, Other (See Below) Other Female Surgeries/Procedures: menorhagia Endocrine Surgical History: Reports: None Neurological Surgical History: Reports: None Musculoskeletal Surgical History: Reports: None Dermatological Surgical History: Reports: Skin Graft Social & Family History - Family History Family Medical History: No Pertinent Family History Other Oncologic Family History: multiple types of cancer run in the family - Tobacco Use Tobacco Use Status *Q: Current Every Day Tobacco User Years of Tobacco use: 15 Packs/Tins Daily: 0.5 - Caffeine Use Caffeine Use: Reports: Soda, Tea - Recreational Drug Use Recreational Drug Use: No - Living Situation & Occupation Occupation: Employed (works in [employer] Review of Systems - Review of Systems Review Of Systems: See Below Constitutional: Reports: No Symptoms. Denies: Chills, Fever Musculoskeletal: Reports: Foot Pain (Left) Skin: Reports: Erythema (over area of tenderness of the L foot.). Denies: Wound Neurological: Reports: Other (Has less sensation in this foot due to an old injury.) ED EXAM, GENERAL - Physical Exam Exam: See Below Exam Limited By: No Limitations General Appearance: Alert, WD/WN, No Apparent Distress, Obese Extremities: No Pedal Edema, Increased Warmth (L lateral foot), Redness (L lateral foot), Other (very tender to touch L lateral foot. ). No: Normal Inspection, Normal Range of Motion, Non-Tender, Pedal Edema Neurological: Alert, Oriented, CN II-XII Intact, Normal Cognition, Normal Gait Skin Exam: Warm, Dry, Intact, No Rash, Erythema (L lateral foot), Increased Warmth (L lateral foot), Other (scar tissue to distal foot-not in area of redness) Course - Vital Signs Last Recorded V/S: Last Vital Signs Temp 36.2 C 03/21/20 23:29 Pulse 101 H 03/21/20 23:29 Resp 18 03/21/20 23:29 BP 124/52 L 03/21/20 23:29 Pulse Ox 99 03/21/20 23:29 - Orders/Labs/Meds Labs: Laboratory Tests 03/21/20 03/21/20 Range/Units 23:45 23:45 WBC 10.6 (4.5-11.0) K/uL RBC 3.93 (3.30-5.50) M/uL Hgb 9.8 L (12.0-15.0) g/dL Hct 32.8 L (36.0-48.0) % MCV 84 (80-98) fL MCH 25 L (27-31) pg MCHC 30 L (32-36) % Plt Count 219 (150-400) K/uL C-Reactive Protein 1.76 H (0.0-0.3) mg/dL Meds: Medications Discontinued Medications Generic Name Dose Route Start Last Admin Trade Name Thangq PRN Reason Stop Dose Admin Hydrocodone Bitart/Acetaminophen 2 tab 03/22/20 00:26 Borger 325-5 Mg PO 03/22/20 00:27 ONETIME ONE Cephalexin 1,000 mg 03/22/20 00:26 Keflex PO 03/22/20 00:27 ONETIME ONE Ketorolac Tromethamine 60 mg 03/21/20 23:34 03/21/20 23:37 Toradol IM 03/21/20 23:35 60 mg ONETIME ONE Administration Departure - Departure Time of Disposition: 00:40 Disposition: Home, Self-Care 01 Condition: Fair Clinical Impression: Cellulitis of left foot - Discharge Information *PRESCRIPTION DRUG MONITORING PROGRAM REVIEWED*: No *COPY OF PRESCRIPTION DRUG MONITORING REPORT IN PATIENT CARLOS: No Prescriptions: cephALEXin [Cephalexin] 750 mg PO Q8H #30 capsule Indomethacin 50 mg PO Q8H #20 capsule Instructions: Cellulitis, Adult, Efgf-ic-Odjo, Tibial and Fibular Fractures Referrals: PCP,None [Primary Care Provider] - Forms: ED Department Discharge Additional Instructions: Take indomethacin every 8 hrs with food. Take cephalexin 750 mg every 8 hrs. Add acetaminophen up to 1000 mg every 8 hrs starting right away as needed for added pain relief. Elevate your foot above your heart. Crutch walking. Recheck with your provider zeke. Your Rx's went to [facility]. You need to start them first thing in the morning. Sepsis Event Note (ED) - Evaluation Sepsis Screening Result: No Definite Risk - Focused Exam Vital Signs: Vital Signs Temp Pulse Resp BP Pulse Ox 03/21/20 23:29 36.2 C 101 H 18 124/52 L 99
[2020-03-22] MEDS ORDERED: Cephalexin 250 MG Cap PO ONE (00:26)
[2020-03-22] MEDS ORDERED: Acetaminophen/HYDROcodone 325-5 MG Tab PO ONE (00:26)
== END 2020-03-22 00:47 | disposition home or self-care (01) ==
LOC: JP.ED 23:16
DX: L03.116 Cellulitis of left lower limb (principal); K21.9 Gastro-esophageal reflux disease without esophagitis; E66.9 Obesity, unspecified; Z68.32 Body mass index [BMI] 32.0-32.9, adult; Z88.5 Allergy status to narcotic agent; Z79.899 Other long term (current) drug therapy; Z72.0 Tobacco use
CPT/HCPCS: 36415; 85027; 86140; 96372; 99283; A9270; J1885

== ENCOUNTER 2020-07-11 12:45 | Emergency (ER) | payer MEDICAID ==
--- NOTE | 2020-07-11 13:28 | EDM.PDOC ---
ED HPI GENERAL MEDICAL PROBLEM - General Chief Complaint: General Stated Complaint: LOW RIGHT SIDE PAINN SHARP CHEST PAIN Time Seen by Provider: 07/11/20 13:10 Source of Information: Reports: Patient, Old Records History Limitations: Reports: No Limitations - History of Present Illness INITIAL COMMENTS - FREE TEXT/NARRATIVE: 44 yo female here for R arm and R leg pain and occasional numbness that began about 0430h this am when she was trying to sleep. Didn't not try to get into the clinic. No hx of the same. Reported meth use to nurse. 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) (none) Right Generalized Pain Score (Numeric/FACES): 9 - Related Data Allergies Allergy/AdvReac Type Severity Reaction Status Date / Time morphine AdvReac Vomiting Verified 07/11/20 13:20 Home Meds: Home Meds Vitamin B Complex/Folic Acid [Vitamin B-100 Complex] 1 tab PO DAILY 09/14/17 [History] traZODone HCl [Trazodone HCl] 50 mg PO BEDTIME PRN 06/03/18 [History] Pregabalin [Lyrica] 300 mg PO BEDTIME PRN 05/02/19 [History] Pantoprazole [ProTONIX] 40 mg PO DAILY #30 tab.cr 05/03/19 [Rx] Albuterol Sulfate [Albuterol Sulfate Hfa] 1 - 2 puff IN QID PRN 09/01/19 [History] Cetirizine [ZyrTEC] 10 mg PO DAILY 09/01/19 [History] rOPINIRole [Requip] 0.5 mg PO BEDTIME PRN 09/01/19 [History] Fluticasone Propionate [Flonase] 2 spray NS DAILY 09/07/19 [History] Iron,Carbonyl/Ascorbic Acid [Iron 100-Vitamin C Tablet] 1 each PO BID 09/07/19 [History] Folic Acid 1 mg PO DAILY 09/08/19 [History] Indomethacin 50 mg PO Q8H #20 capsule 03/22/20 [Rx] predniSONE [Prednisone] 5 mg PO TID 1 Days #20 tablet 07/11/20 [Rx] Past Medical History HEENT History: Reports: Allergic Rhinitis, Impaired Vision Other HEENT History: wears glasses Respiratory History: Reports: Pneumonia, Recurrent Gastrointestinal History: Reports: Cholelithiasis, GERD Genitourinary History: Reports: UTI, Recurrent 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: Dysfunctional Uterine Bleeding, , Other (See Below) 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: enlarged uterus Musculoskeletal History: Reports: Other (See Below) Other Musculoskeletal History: complex regional pain disorder Neurological History: Reports: Concussion, Head Trauma Psychiatric History: Reports: Addiction Endocrine/Metabolic History: Reports: Obesity/BMI 30+ Hematologic History: Reports: Anemia, Blood Transfusion(s), Iron Deficiency Dermatologic History: Reports: Cellulitis - Infectious Disease History Infectious Disease History: Reports: Chicken Pox, Scarlet Fever - Past Surgical History Head Surgeries/Procedures: Reports: None HEENT Surgical History: Reports: None Respiratory Surgical History: Reports: None GI Surgical History: Reports: Cholecystectomy, Colonoscopy, EGD Female Surgical History: Reports: Tubal Ligation, Other (See Below) Other Female Surgeries/Procedures: menorhagia Endocrine Surgical History: Reports: None Neurological Surgical History: Reports: None Musculoskeletal Surgical History: Reports: None Dermatological Surgical History: Reports: Skin Graft Social & Family History - Family History Family Medical History: No Pertinent Family History Other Oncologic Family History: multiple types of cancer run in the family - Tobacco Use Tobacco Use Status *Q: Light Tobacco User Years of Tobacco use: 12 Packs/Tins Daily: 0.5 - Caffeine Use Caffeine Use: Reports: Soda - Recreational Drug Use Recreational Drug Use: No - Living Situation & Occupation Occupation: Employed (works in [employer] [facility] GENERAL - Review of Systems Review Of Systems: See Below Constitutional: Reports: No Symptoms HEENT: Reports: No Symptoms Respiratory: Reports: No Symptoms Cardiovascular: Reports: No Symptoms GI/Abdominal: Reports: No Symptoms : Reports: No Symptoms Musculoskeletal: Reports: Arm Pain (Right), Leg Pain (Right) Skin: Reports: No Symptoms Neurological: Reports: Numbness (intermittent of R arm and R leg) ED EXAM, GENERAL - Physical Exam Exam: See Below Exam Limited By: No Limitations General Appearance: Alert, WD/WN, No Apparent Distress Eye Exam: Bilateral Eye: EOMI, Normal Inspection, PERRL Ears: Normal External Exam, Normal Canal, Hearing Grossly Normal, Normal TMs Ear Exam: Bilateral Ear: Auricle Normal, Canal Normal, TM normal Nose: Normal Inspection, No Blood Throat/Mouth: Normal Inspection, Normal Lips, Normal Oropharynx, Normal Voice, No Airway Compromise Head: Atraumatic, Normocephalic Neck: Normal Inspection Respiratory/Chest: No Respiratory Distress, Lungs Clear, Normal Breath Sounds, No Accessory Muscle Use. No: Chest Non-Tender (anterior chest wall tenderness present) Cardiovascular: Regular Rate, Rhythm, No Edema GI/Abdominal: Normal Bowel Sounds, Soft, Non-Tender, No Distention Back Exam: Normal Inspection. No: CVA Tenderness (R), CVA Tenderness (L) Extremities: Normal Inspection, Normal Range of Motion, Non-Tender, No Pedal Edema, Other (R arm and R leg tender to touch "everywhere"). No: Pedal Edema, Lata's Sign, Leg Pain, Increased Warmth, Redness Neurological: Alert, Oriented, CN II-XII Intact, Normal Cognition, No Motor/Sensory Deficits Psychiatric: Normal Affect, Normal Mood Skin Exam: Warm, Dry, Intact, Normal Color, No Rash Course - Vital Signs Last Recorded V/S: Last Vital Signs Temp 36.3 C 07/11/20 13:15 Pulse 91 07/11/20 13:35 Resp 14 07/11/20 13:15 BP 119/45 L 07/11/20 13:35 Pulse Ox 98 07/11/20 13:15 - Orders/Labs/Meds Labs: Laboratory Tests 07/11/20 07/11/20 07/11/20 Range/Units 13:30 13:30 13:30 ESR 48 H (0-25) mm/hr Sodium 142 (140-148) mmol/L Potassium 3.6 (3.6-5.2) mmol/L Chloride 107 (100-108) mmol/L Carbon Dioxide 25 (21-32) mmol/L Anion Gap 9.9 (5.0-14.0) mmol/L BUN 16 (7-18) mg/dL Creatinine 0.6 (0.6-1.0) mg/dL Est Cr Clr Drug Dosing 102.25 mL/min Estimated GFR (MDRD) > 60 (>60) Glucose 107 H (74-106) mg/dL Calcium 8.9 (8.5-10.1) mg/dL AST 17 (15-37) U/L Troponin I < 0.017 (0.000-0.056) ng/mL Urine Opiates Screen (NEGATIVE) Ur Oxycodone Screen (NEGATIVE) Urine Methadone Screen (NEGATIVE) Ur Propoxyphene Screen (NEGATIVE) Ur Barbiturates Screen (NEGATIVE) Ur Tricyclics Screen (NEGATIVE) Ur Phencyclidine Scrn (NEGATIVE) Ur Amphetamine Screen (NEGATIVE) U Methamphetamines Scrn (NEGATIVE) Urine MDMA Screen (NEGATIVE) U Benzodiazepines Scrn (NEGATIVE) U Cocaine Metab Screen (NEGATIVE) U Marijuana (THC) Screen (NEGATIVE) Ethyl Alcohol mg/dL 07/11/20 07/11/20 Range/Units 13:30 14:14 ESR (0-25) mm/hr Sodium (140-148) mmol/L Potassium (3.6-5.2) mmol/L Chloride (100-108) mmol/L Carbon Dioxide (21-32) mmol/L Anion Gap (5.0-14.0) mmol/L BUN (7-18) mg/dL Creatinine (0.6-1.0) mg/dL Est Cr Clr Drug Dosing mL/min Estimated GFR (MDRD) (>60) Glucose (74-106) mg/dL Calcium (8.5-10.1) mg/dL AST (15-37) U/L Troponin I (0.000-0.056) ng/mL Urine Opiates Screen Negative (NEGATIVE) Ur Oxycodone Screen Negative (NEGATIVE) Urine Methadone Screen Negative (NEGATIVE) Ur Propoxyphene Screen Negative (NEGATIVE) Ur Barbiturates Screen Negative (NEGATIVE) Ur Tricyclics Screen Negative (NEGATIVE) Ur Phencyclidine Scrn Negative (NEGATIVE) Ur Amphetamine Screen Presumptive positive H (NEGATIVE) U Methamphetamines Scrn Presumptive positive H (NEGATIVE) Urine MDMA Screen Negative (NEGATIVE) U Benzodiazepines Scrn Negative (NEGATIVE) U Cocaine Metab Screen Negative (NEGATIVE) U Marijuana (THC) Screen Negative (NEGATIVE) Ethyl Alcohol < 3 mg/dL Meds: Medications Discontinued Medications Generic Name Dose Route Start Last Admin Trade Name Freq PRN Reason Stop Dose Admin Prednisone 10 mg 07/11/20 14:40 Prednisone 10 Mg Tab PO 07/11/20 14:41 ONETIME ONE Departure - Departure Time of Disposition: 14:50 Disposition: Home, Self-Care 01 Condition: Fair Clinical Impression: Elevated erythrocyte sedimentation rate, PMR (polymyalgia rheumatica) - Discharge Information *PRESCRIPTION DRUG MONITORING PROGRAM REVIEWED*: Not Applicable *COPY OF PRESCRIPTION DRUG MONITORING REPORT IN PATIENT CARLOS: Not Applicable Prescriptions: predniSONE [Prednisone] 5 mg PO TID 1 Days #20 tablet Referrals: Shakila Ortiz PA-C [Primary Care Provider] - Forms: ED Department Discharge Additional Instructions: Take prednisone as directed with each meal. F/U with your provider later this week. Don't take any alcohol or street drugs until OK'd by your provider. Sepsis Event Note (ED) - Evaluation Sepsis Screening Result: No Definite Risk - Focused Exam Vital Signs: Vital Signs Temp Pulse Resp BP Pulse Ox 07/11/20 13:35 91 119/45 L 07/11/20 13:15 36.3 C 97 14 136/65 98 07/11/20 13:11 36.3 C 97 14 136/65 98
[2020-07-11 14:00] VITALS: BP 119/45; PULSE 91
[2020-07-11] MEDS: predniSONE 10 MG Tab PO ONE (15:02)
== END 2020-07-11 15:10 | disposition home or self-care (01) ==
LOC: JP.ED 12:45
DX: M35.3 Polymyalgia rheumatica (principal); R70.0 Elevated erythrocyte sedimentation rate; K21.9 Gastro-esophageal reflux disease without esophagitis; E66.9 Obesity, unspecified; Z88.6 Allergy status to analgesic agent; Z68.30 Body mass index [BMI] 30.0-30.9, adult; Z72.0 Tobacco use
CPT/HCPCS: 36415; 80048; 80305; 80307; 84450; 84484; 85651; 99284; J7512

== ENCOUNTER 2020-08-03 23:05 | Emergency (ER) | payer MEDICAID ==
[2020-08-03 23:19] VITALS: BP 142/75; PULSE 90
--- NOTE | 2020-08-03 23:27 | EDM.PDOC ---
ED HPI GENERAL MEDICAL PROBLEM - General Chief Complaint: Bite:Animal, Insect Stated Complaint: DOG BITE Time Seen by Provider: 08/03/20 23:26 Source of Information: Reports: Patient History Limitations: Reports: No Limitations - History of Present Illness INITIAL COMMENTS - FREE TEXT/NARRATIVE: Steffany Luque presents with an acute dog bite that occurred just prior to ED arrival after breaking up 2 dogs that were fighting. patient last tdap 09-17-2019. 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 Patient denies any numbness, tingling or weakness. She is not or breast-feeding. Denies allergies to antibiotics. She is not immune compromise. Denies bleeding diathesis. laceration does not involve the nail plate. Onset: Today Left Finger-Thumb Pain Score (Numeric/FACES): 10 - Related Data Allergies Allergy/AdvReac Type Severity Reaction Status Date / Time morphine AdvReac Vomiting Verified 07/11/20 13:20 Home Meds: Home Meds Vitamin B Complex/Folic Acid [Vitamin B-100 Complex] 1 tab PO DAILY 09/14/17 [History] traZODone HCl [Trazodone HCl] 50 mg PO BEDTIME PRN 06/03/18 [History] Pregabalin [Lyrica] 300 mg PO BEDTIME PRN 05/02/19 [History] Pantoprazole [ProTONIX] 40 mg PO DAILY #30 tab.cr 05/03/19 [Rx] Albuterol Sulfate [Albuterol Sulfate Hfa] 1 - 2 puff IN QID PRN 09/01/19 [History] Cetirizine [ZyrTEC] 10 mg PO DAILY 09/01/19 [History] rOPINIRole [Requip] 0.5 mg PO BEDTIME PRN 09/01/19 [History] Fluticasone Propionate [Flonase] 2 spray NS DAILY 09/07/19 [History] Iron,Carbonyl/Ascorbic Acid [Iron 100-Vitamin C Tablet] 1 each PO BID 09/07/19 [History] Folic Acid 1 mg PO DAILY 09/08/19 [History] Methimazole [Tapazole] 1 tab PO DAILY 08/03/20 [History] Past Medical History HEENT History: Reports: Allergic Rhinitis, Impaired Vision Other HEENT History: wears glasses Respiratory History: Reports: Pneumonia, Recurrent Gastrointestinal History: Reports: Cholelithiasis, GERD Genitourinary History: Reports: UTI, Recurrent SIGNAL SUPERVISOR History: Reports: Dysfunctional Uterine Bleeding, , Other (See Below) Other SIGNAL SUPERVISOR History: enlarged uterus Musculoskeletal History: Reports: Other (See Below) Other Musculoskeletal History: complex regional pain disorder Neurological History: Reports: Concussion, Head Trauma Psychiatric History: Reports: Addiction Endocrine/Metabolic History: Reports: Obesity/BMI 30+ Hematologic History: Reports: Anemia, Blood Transfusion(s), Iron Deficiency Dermatologic History: Reports: Cellulitis - Infectious Disease History Infectious Disease History: Reports: Chicken Pox, Scarlet Fever - Past Surgical History Head Surgeries/Procedures: Reports: None HEENT Surgical History: Reports: None Respiratory Surgical History: Reports: None GI Surgical History: Reports: Cholecystectomy, Colonoscopy, EGD Female Surgical History: Reports: Tubal Ligation, Other (See Below) Other Female Surgeries/Procedures: menorhagia Endocrine Surgical History: Reports: None Neurological Surgical History: Reports: None Musculoskeletal Surgical History: Reports: None Dermatological Surgical History: Reports: Skin Graft Social & Family History - Family History Family Medical History: No Pertinent Family History Other Oncologic Family History: multiple types of cancer run in the family - Caffeine Use Caffeine Use: Reports: Soda - Living Situation & Occupation Occupation: Employed (works in [employer] ED ROS GENERAL - Review of Systems Review Of Systems: See Below Constitutional: Denies: Fever Respiratory: Reports: No Symptoms Cardiovascular: Reports: No Symptoms Musculoskeletal: Reports: Other Skin: Reports: Other Neurological: Denies: Numbness, Tingling Psychiatric: Reports: No Symptoms Hematologic/Lymphatic: Reports: No Symptoms Immunologic: Reports: No Symptoms ED EXAM, ANIMAL BITE - Physical Exam Exam: See Below Exam Limited By: No Limitations General Appearance: Alert, No Apparent Distress Nose: Normal Inspection Head: Atraumatic Neck: Normal Inspection Respiratory/Chest: No Respiratory Distress Cardiovascular: Normal Peripheral Pulses Skin Exam: Normal Color, Other (Isolated puncture wound to left distal thumb radial aspect does not involve the nailbed or plate. NVI distally. Does not involve the joint. Patient has intact flexion extension of the IP joint. There is no bony tenderness.) ED ANIMAL BITE PROCEDURES - Laceration/Wound Repair Left Digit - 1st (Thumb) Lac/Wound Length In cm: 0.2 Appearance: Superficial Distal NVT: Neuro & Vascular Intact (1 from dog bite.) Anesthetic Type: Local Local Anesthesia - Lidocaine (Xylocaine): 1% Plain Local Anesthetic Volume: 1cc Skin Prep: Other Saline Irrigation (cc's): 1,000 (Tap water irrigation extensive.) Exploration/Debridement/Repair: Wound Explored, No Foreign Material Found Course - Vital Signs Last Recorded V/S: Last Vital Signs Temp 36.6 C 08/03/20 23:25 Pulse 90 08/03/20 23:25 Resp 16 08/03/20 23:25 BP 142/75 H 08/03/20 23:25 Pulse Ox 99 08/03/20 23:25 - Orders/Labs/Meds Meds: Medications Discontinued Medications Generic Name Dose Route Start Last Admin Trade Name Freq PRN Reason Stop Dose Admin Amoxicillin/Clavulanate Potassium 1 tab 08/03/20 23:37 08/03/20 23:52 Amoxicillin/Clavulanate K 875-125 Mg Tab PO 08/03/20 23:38 1 tab ONETIME ONE Administration Bacitracin Confirm 08/04/20 00:15 Bacitracin Oint 1 Gm U/D Packet Administered 08/04/20 00:16 Dose 1 dose .ROUTE .STK-MED ONE Lidocaine HCl 5 ml 08/03/20 23:37 08/03/20 23:52 Lidocaine 1% 20 Ml Mdv INFILT 08/03/20 23:38 5 ml ONETIME ONE Administration Departure - Departure Time of Disposition: 00:05 Disposition: DC/Tfer to Court of Law En 21 Condition: Good Clinical Impression: Laceration of left thumb - Discharge Information *PRESCRIPTION DRUG MONITORING PROGRAM REVIEWED*: No *COPY OF PRESCRIPTION DRUG MONITORING REPORT IN PATIENT CARLOS: No Instructions: Animal Bite, Adult, [id number], Laceration Care, Adult, [id number] Forms: ED Department Discharge Additional Instructions: Take the Augmentin 875 mg 1 tablet by mouth 2 times a day for the next 7 days. Keep your finger clean dry and covered. Use bacitracin to the area. Return if temperature greater 100.4, progressive pain up your thumb or red streak/uncontrolled pain. recheck with primary md or here in 5-7 days Sepsis Event Note (ED) - Evaluation Sepsis Screening Result: No Definite Risk - Focused Exam Vital Signs: Vital Signs Temp Pulse Resp BP Pulse Ox 08/03/20 23:25 36.6 C 90 16 142/75 H 99 08/03/20 23:18 36.6 C 90 16 142/75 H 99
[2020-08-03] MEDS ORDERED: Amoxicillin/Clavulanate K 875-125 MG Tab PO ONE (23:37)
[2020-08-03] MEDS ORDERED: Lidocaine 1% 20 ML MDV INFILT ONE (23:37)
[2020-08-04] MEDS ORDERED: Bacitracin Oint 1 GM U/D Packet ONE (00:15)
== END 2020-08-04 00:24 ==
LOC: JP.ED 23:05
DX: S61.012A Laceration without foreign body of left thumb without damage to nail, initial encounter (principal); K21.9 Gastro-esophageal reflux disease without esophagitis; E66.9 Obesity, unspecified; Z88.6 Allergy status to analgesic agent; Z68.39 Body mass index [BMI] 39.0-39.9, adult; W54.0XXA Bitten by dog, initial encounter
CPT/HCPCS: 99283; A9270-GY

== ENCOUNTER 2020-10-21 01:07 | Emergency (ER) | payer MEDICAID ==
[2020-10-21 01:20] VITALS: PULSE 97
[2020-10-21] MEDS ORDERED: Lidocaine 1% with EPINEPHrine 1:100,000 50 ML MDV SUBCUT STA (01:24)
[2020-10-21] MEDS ORDERED: Bacitracin Oint 1 GM U/D Packet TOP ONE (01:24)
--- NOTE | 2020-10-21 01:28 | EDM.PDOC ---
ED HPI GENERAL MEDICAL PROBLEM - General Chief Complaint: Laceration Stated Complaint: CUT RIGHT ARM WITH KNIFE Time Seen by Provider: 10/21/20 01:22 Source of Information: Reports: Patient, RN Notes Reviewed History Limitations: Reports: No Limitations - History of Present Illness INITIAL COMMENTS - FREE TEXT/NARRATIVE: 44-year-old female presents emergency department day complaint of laceration, she injured her self when she excellently cut her right hand with a kitchen knife - Related Data Allergies Allergy/AdvReac Type Severity Reaction Status Date / Time morphine AdvReac Vomiting Verified 10/21/20 01:17 Home Meds: Home Meds Vitamin B Complex/Folic Acid [Vitamin B-100 Complex] 1 tab PO DAILY 09/14/17 [History] traZODone HCl [Trazodone HCl] 50 mg PO BEDTIME PRN 06/03/18 [History] Pregabalin [Lyrica] 300 mg PO BEDTIME PRN 05/02/19 [History] Pantoprazole [ProTONIX] 40 mg PO DAILY #30 tab.cr 05/03/19 [Rx] Albuterol Sulfate [Albuterol Sulfate Hfa] 1 - 2 puff IN QID PRN 09/01/19 [History] Cetirizine [ZyrTEC] 10 mg PO DAILY 09/01/19 [History] rOPINIRole [Requip] 0.5 mg PO BEDTIME PRN 09/01/19 [History] Fluticasone Propionate [Flonase] 2 spray NS DAILY 09/07/19 [History] Iron,Carbonyl/Ascorbic Acid [Iron 100-Vitamin C Tablet] 1 each PO BID 09/07/19 [History] Folic Acid 1 mg PO DAILY 09/08/19 [History] Methimazole [Tapazole] 1 tab PO DAILY 08/03/20 [History] Past Medical History HEENT History: Reports: Allergic Rhinitis, Impaired Vision Other HEENT History: wears glasses Respiratory History: Reports: Pneumonia, Recurrent Gastrointestinal History: Reports: Cholelithiasis, GERD Genitourinary History: Reports: UTI, Recurrent 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: Reports: Dysfunctional Uterine Bleeding, , Other (See Below) Other 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: enlarged uterus Musculoskeletal History: Reports: Other (See Below) Other Musculoskeletal History: complex regional pain disorder Neurological History: Reports: Concussion, Head Trauma Psychiatric History: Reports: Addiction Endocrine/Metabolic History: Reports: Obesity/BMI 30+ Hematologic History: Reports: Anemia, Blood Transfusion(s), Iron Deficiency Dermatologic History: Reports: Cellulitis - Infectious Disease History Infectious Disease History: Reports: Chicken Pox, Scarlet Fever - Past Surgical History Head Surgeries/Procedures: Reports: None HEENT Surgical History: Reports: None Respiratory Surgical History: Reports: None GI Surgical History: Reports: Cholecystectomy, Colonoscopy, EGD Female Surgical History: Reports: Tubal Ligation, Other (See Below) Other Female Surgeries/Procedures: menorhagia Endocrine Surgical History: Reports: None Neurological Surgical History: Reports: None Musculoskeletal Surgical History: Reports: None Dermatological Surgical History: Reports: Skin Graft Social & Family History - Family History Family Medical History: No Pertinent Family History Other Oncologic Family History: multiple types of cancer run in the family - Caffeine Use Caffeine Use: Reports: Coffee, Energy Drinks - Living Situation & Occupation Occupation: Employed (works in [employer] ED ROS GENERAL - Review of Systems Review Of Systems: See Below Skin: Reports: Wound ED EXAM, SKIN/RASH Exam: See Below Text/Narrative:: Examination of the right hand there is a 2 cm laceration in between digits 1 and 2 it is on the dorsal surface full range of motion of all digits sensation is intact radial pulse +2 Exam Limited By: No Limitations General Appearance: Alert, WD/WN, No Apparent Distress ED SKIN PROCEDURES - Laceration/Wound Repair Right Hand Appearance: Subcutaneous, Linear Distal NVT: Neuro & Vascular Intact, No Tendon Injury Anesthetic Type: Local Local Anesthesia - Lidocaine (Xylocaine): 1% with EPI Local Anesthetic Volume: 2cc Skin Prep: Saline Saline Irrigation (cc's): 30 Exploration/Debridement/Repair: Wound Explored, In a Bloodless Field, Explored to Base Closed with: Sutures Lac/Wound length In cm: 2 Suture Size: 3-0 # of Sutures: 3 Suture Type: Nylon, Interrupted Sterile Dressing Applied: Nurse Tetanus Status Addressed: No Course - Vital Signs Last Recorded V/S: Last Vital Signs Temp Pulse 97 10/21/20 01:18 Resp 14 10/21/20 01:18 BP 100/64 10/21/20 01:18 Pulse Ox 97 10/21/20 01:18 - Orders/Labs/Meds Meds: Medications Discontinued Medications Generic Name Dose Route Start Last Admin Trade Name Freq PRN Reason Stop Dose Admin Bacitracin 1 dose 10/21/20 01:24 10/21/20 01:29 Bacitracin Oint 1 Gm U/D Packet TOP 10/21/20 01:25 1 dose ONETIME ONE Administration Lidocaine/Epinephrine 20 ml 10/21/20 01:24 10/21/20 01:29 Lidocaine 1% With Epinephrine 1:100,000 50 Ml Mdv SUBCUT 10/21/20 01:25 20 ml NOW STA Administration Departure - Departure Time of Disposition: 01:41 Disposition: Home, Self-Care 01 Condition: Fair Clinical Impression: Laceration of right hand Qualifiers: Foreign body presence: without foreign body - Discharge Information Instructions: Laceration Care, Adult Referrals: PCP,None [Primary Care Provider] - Forms: ED Department Discharge Sepsis Event Note (ED) - Evaluation Sepsis Screening Result: No Definite Risk - Focused Exam Vital Signs: Vital Signs Pulse Resp BP Pulse Ox 10/21/20 01:18 97 14 100/64 97 - Assessment/Plan Plan: Assessment Acuity = acute Site and laterality = laceration to centimeter right hand Etiology = secondary to trauma Manifestations = none Location of injury = Home Lab values = none Plan Suture removal in 10 days follow-up primary care return to the emergency department This note was dictated using [employer] voice recognition software please call with any questions on syntax or grammar.
[2020-10-21 02:04] VITALS: BP 109/57
[2020-10-21] MEDS ORDERED: Ketorolac 30 MG/ML SDV IM ONE (02:36)
== END 2020-10-21 02:55 | disposition home or self-care (01) ==
LOC: JP.ED 01:07
DX: S61.411A Laceration without foreign body of right hand, initial encounter (principal); K21.9 Gastro-esophageal reflux disease without esophagitis; Z79.899 Other long term (current) drug therapy; Z88.5 Allergy status to narcotic agent; W26.0XXA Contact with knife, initial encounter; Y92.000 Kitchen of unspecified non-institutional (private) residence as the place of occurrence of the external cause
CPT/HCPCS: 12001; 96372; 99282; J1885

== ENCOUNTER 2020-12-12 05:35 | Emergency (ER) | payer MEDICAID ==
[2020-12-12 06:13] VITALS: BP 130/57; PULSE 96
[2020-12-12] MEDS ORDERED: Ketorolac 30 MG/ML SDV IM ONE (06:18)
--- NOTE | 2020-12-12 06:29 | EDM.PDOC ---
ED HPI GENERAL MEDICAL PROBLEM - General Chief Complaint: Upper Extremity Injury/Pain Stated Complaint: RIGHT ARM PAIN Time Seen by Provider: 12/12/20 06:10 Source of Information: Reports: Patient History Limitations: Reports: No Limitations - History of Present Illness INITIAL COMMENTS - FREE TEXT/NARRATIVE: 45-year-old female who frequents the ER often presents with right arm pain for the past 3 days, nonspecific. Is also now complaining of a right-sided headache. She was seen a week ago for numerous symptoms and tested for Covid and was negative. She denies any fevers or chills. She has intermittent numbness in her right hand. Onset: Sudden (Woke up with symptoms 3 days ago) Location: Reports: Upper Extremity, Right Associated Symptoms: Reports: Headaches, Malaise. Denies: Cough, Fever/Chills right arm pain Pain Score (Numeric/FACES): 8 - Related Data Allergies Allergy/AdvReac Type Severity Reaction Status Date / Time morphine AdvReac Vomiting Verified 12/12/20 06:08 Home Meds: Home Meds Vitamin B Complex/Folic Acid [Vitamin B-100 Complex] 1 tab PO DAILY 09/14/17 [History] traZODone HCl [Trazodone HCl] 50 mg PO BEDTIME PRN 06/03/18 [History] Pregabalin [Lyrica] 300 mg PO BEDTIME PRN 05/02/19 [History] Albuterol Sulfate [Albuterol Sulfate Hfa] 1 - 2 puff IN QID PRN 09/01/19 [History] Cetirizine [ZyrTEC] 10 mg PO DAILY 09/01/19 [History] rOPINIRole [Requip] 0.5 mg PO BEDTIME PRN 09/01/19 [History] Fluticasone Propionate [Flonase] 2 spray NS DAILY 09/07/19 [History] Iron,Carbonyl/Ascorbic Acid [Iron 100-Vitamin C Tablet] 1 each PO BID 09/07/19 [History] Folic Acid 1 mg PO DAILY 09/08/19 [History] Methimazole [Tapazole] 1 tab PO DAILY 08/03/20 [History] Propranolol [Inderal LA 24 Hr] 60 mg PO DAILY 12/12/20 [History] Past Medical History HEENT History: Reports: Allergic Rhinitis, Impaired Vision Other HEENT History: wears glasses Cardiovascular History: Reports: Other (See Below) Other Cardiovascular History: "fluid around my heart" Respiratory History: Reports: Pneumonia, Recurrent, Other (See Below) Other Respiratory History: "fluid around my lungs" Gastrointestinal History: Reports: Cholelithiasis, GERD Genitourinary History: Reports: UTI, Recurrent 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: Dysfunctional Uterine Bleeding, , Other (See Below) Other FLOOR PRESS OPERATOR History: enlarged uterus Musculoskeletal History: Reports: Other (See Below) Other Musculoskeletal History: complex regional pain disorder Neurological History: Reports: Concussion, Head Trauma Psychiatric History: Reports: Addiction Endocrine/Metabolic History: Reports: Obesity/BMI 30+ Hematologic History: Reports: Anemia, Blood Transfusion(s), Iron Deficiency Dermatologic History: Reports: Cellulitis - Infectious Disease History Infectious Disease History: Reports: Chicken Pox, Scarlet Fever - Past Surgical History Head Surgeries/Procedures: Reports: None HEENT Surgical History: Reports: None Respiratory Surgical History: Reports: None GI Surgical History: Reports: Cholecystectomy, Colonoscopy, EGD Female Surgical History: Reports: Tubal Ligation, Other (See Below) Other Female Surgeries/Procedures: menorhagia Endocrine Surgical History: Reports: None Neurological Surgical History: Reports: None Musculoskeletal Surgical History: Reports: None Dermatological Surgical History: Reports: Skin Graft Social & Family History - Family History Family Medical History: No Pertinent Family History Other Oncologic Family History: multiple types of cancer run in the family - Tobacco Use Tobacco Use Status *Q: Current Every Day Tobacco User Years of Tobacco use: 20 Packs/Tins Daily: 0.5 - Caffeine Use Caffeine Use: Reports: Coffee, Energy Drinks - Alcohol Use Days Per Week of Alcohol Use: 2 Number of Drinks Per Day: 10 Total Drinks Per Week: 20 - Recreational Drug Use Recreational Drug Use: No - Living Situation & Occupation Occupation: Employed (works in [employer] Review of Systems - Review of Systems Review Of Systems: See Below Constitutional: Denies: Fever Eyes: Denies: Vision Change Respiratory: Reports: No Symptoms Cardiovascular: Reports: No Symptoms Musculoskeletal: Reports: Shoulder Pain, Arm Pain (Right-sided) Neurological: Reports: Headache Psychiatric: Reports: Anxiety ED EXAM, GENERAL - Physical Exam Exam: See Below Exam Limited By: No Limitations General Appearance: Alert, No Apparent Distress Eye Exam: Bilateral Eye: Normal Inspection, PERRL Head: Atraumatic Neck: Supple, Non-Tender Respiratory/Chest: Lungs Clear Cardiovascular: Regular Rate, Rhythm Extremities: Other (Palpation of the right arm reveals no focal tenderness, she has less pain with extension of the arm and rotation. Although she claims her swelling in her hand, there is no objective findings, grasp strength is fine. She has some tenderness to palpation over the rhomboid area of the shoulder) Psychiatric: Flat Affect Course - Vital Signs Last Recorded V/S: Last Vital Signs Temp 97.3 F 12/12/20 06:13 Pulse 96 12/12/20 06:13 Resp 14 12/12/20 06:13 BP 130/57 L 12/12/20 06:13 Pulse Ox 96 12/12/20 06:13 - Orders/Labs/Meds Meds: Medications Discontinued Medications Generic Name Dose Route Start Last Admin Trade Name Isaias PRN Reason Stop Dose Admin Ketorolac Tromethamine 30 mg 12/12/20 06:18 12/12/20 06:50 Ketorolac 30 Mg/Ml Sdv IM 12/12/20 06:19 30 mg ONETIME ONE Administration - Re-Assessments/Exams Free Text/Narrative Re-Assessment/Exam: 12/12/20 06:28 Other than some vague nerve discomfort, this really does not fit any pattern of musculoskeletal injury. It fits mostly with her chronic somatic nature of c omplaints. She was given 30 mg of IM Toradol, and I will place her on a tapering prednisone for the next 7 days. Would like her to continue with her Lyrica and she can recheck with her primary provider later this week if not improving satisfactorily. 12/12/20 06:45 Patient was not convinced she had much relief from the Toradol but I think she should give this some time as well as some tapering prednisone and the Lyrica. She can recheck if not improving in the next few days. Departure - Departure Time of Disposition: 06:52 Disposition: Home, Self-Care 01 Clinical Impression: Right arm pain Headache Qualifiers: Headache type: tension-type Headache chronicity pattern: episodic headache Intractability: not intractable Qualified Code(s): G44.219 - Episodic tension- type headache, not intractable - Discharge Information Instructions: Neuropathic Pain Referrals: Shakila Ortiz PA-C [Primary Care Provider] - Forms: ED Department Discharge Care Plan Goals: Take the prednisone as prescribed, continue with your Lyrica and increase activity as tolerated. Consider rechecking at the clinic in 3 to 4 days if not improving satisfactorily. Sepsis Event Note (ED) - Evaluation Sepsis Screening Result: No Definite Risk - Focused Exam Vital Signs: Vital Signs Temp Pulse Resp BP Pulse Ox 12/12/20 06:13 97.3 F 96 14 130/57 L 96 12/12/20 06:10 97.3 F 96 14 130/57 L 96
== END 2020-12-12 06:58 | disposition home or self-care (01) ==
LOC: JP.ED 05:35
DX: M79.601 Pain in right arm (principal); G44.219 Episodic tension-type headache, not intractable; K21.9 Gastro-esophageal reflux disease without esophagitis; E66.9 Obesity, unspecified; Z79.899 Other long term (current) drug therapy; Z72.0 Tobacco use
CPT/HCPCS: 96372; 99283; J1885

== ENCOUNTER 2020-12-21 12:04 | Emergency (ER) | payer MEDICAID ==
[2020-12-21 12:23] VITALS: BP 128/67; PULSE 94
--- NOTE | 2020-12-21 12:41 | EDM.PDOC ---
ED HPI GENERAL MEDICAL PROBLEM - General Chief Complaint: Upper Extremity Injury/Pain Stated Complaint: arm shoulder chest and neck pain Time Seen by Provider: 12/21/20 12:41 Source of Information: Reports: Patient History Limitations: Reports: No Limitations - History of Present Illness INITIAL COMMENTS - FREE TEXT/NARRATIVE: Right arm pain and right shoulder pain for the past 2 weeks. I saw this patient 2 weeks ago and she was diagnosed with neuropathic pain of the right arm, possibly rhomboid muscle inflammation or central nerve irritation. I asked her to follow-up with her primary in the next few days for further testing. She did get rechecked in the [facility] emergency room where she had CT scans of her neck done, then again in the walk-in clinic yesterday where she had numerous blood test done. She called the clinic today to recheck with her primary and they sent her to the emergency room. Her pain is persistent, right posterior back and shoulder radiating to her right arm causing some numbness and tingling at times. No shortness of breath, denies nausea or vomiting. No fevers or chills. Onset: Gradual Duration: Week(s): (Symptoms have been ongoing for the past few weeks) Location: Reports: Upper Extremity, Right, Other (Right posterior shoulder) Quality: Reports: Burning, Stabbing Improves with: Reports: Other (Rising her arm upwards actually helps the pain) Worsens with: Reports: Movement Associated Symptoms: Reports: Weakness (Complains of mild right arm weakness). Denies: Chest Pain, Cough, Malaise Right Arm Pain Score (Numeric/FACES): 8 - Related Data Allergies Allergy/AdvReac Type Severity Reaction Status Date / Time morphine AdvReac Vomiting Verified 12/12/20 06:08 Home Meds: Home Meds Vitamin B Complex/Folic Acid [Vitamin B-100 Complex] 1 tab PO DAILY 09/14/17 [History] traZODone HCl [Trazodone HCl] 50 mg PO BEDTIME PRN 06/03/18 [History] Pregabalin [Lyrica] 300 mg PO BEDTIME PRN 05/02/19 [History] Albuterol Sulfate [Albuterol Sulfate Hfa] 1 - 2 puff IN QID PRN 09/01/19 [History] Cetirizine [ZyrTEC] 10 mg PO DAILY 09/01/19 [History] rOPINIRole [Requip] 0.5 mg PO BEDTIME PRN 09/01/19 [History] Fluticasone Propionate [Flonase] 2 spray NS DAILY 09/07/19 [History] Iron,Carbonyl/Ascorbic Acid [Iron 100-Vitamin C Tablet] 1 each PO BID 09/07/19 [History] Folic Acid 1 mg PO DAILY 09/08/19 [History] Methimazole [Tapazole] 1 tab PO DAILY 08/03/20 [History] Propranolol [Inderal LA 24 Hr] 60 mg PO DAILY 12/12/20 [History] Past Medical History HEENT History: Reports: Allergic Rhinitis, Impaired Vision Other HEENT History: wears glasses Cardiovascular History: Reports: Other (See Below) Other Cardiovascular History: "fluid around my heart" Respiratory History: Reports: Pneumonia, Recurrent, Other (See Below) Other Respiratory History: "fluid around my lungs" Gastrointestinal History: Reports: Cholelithiasis, GERD Genitourinary History: Reports: UTI, Recurrent 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: Dysfunctional Uterine Bleeding, , Other (See Below) Other TRAVEL ADMINISTRATOR History: enlarged uterus Musculoskeletal History: Reports: Other (See Below) Other Musculoskeletal History: complex regional pain disorder Neurological History: Reports: Concussion, Head Trauma Psychiatric History: Reports: Addiction Endocrine/Metabolic History: Reports: Obesity/BMI 30+ Hematologic History: Reports: Anemia, Blood Transfusion(s), Iron Deficiency Dermatologic History: Reports: Cellulitis - Infectious Disease History Infectious Disease History: Reports: Chicken Pox, Scarlet Fever - Past Surgical History Head Surgeries/Procedures: Reports: None HEENT Surgical History: Reports: None Respiratory Surgical History: Reports: None GI Surgical History: Reports: Cholecystectomy, Colonoscopy, EGD Female Surgical History: Reports: Tubal Ligation, Other (See Below) Other Female Surgeries/Procedures: menorhagia Endocrine Surgical History: Reports: None Neurological Surgical History: Reports: None Musculoskeletal Surgical History: Reports: None Dermatological Surgical History: Reports: Skin Graft Social & Family History - Family History Family Medical History: No Pertinent Family History Other Oncologic Family History: multiple types of cancer run in the family - Tobacco Use Tobacco Use Status *Q: Current Every Day Tobacco User Years of Tobacco use: 15 Packs/Tins Daily: 0.5 - Caffeine Use Caffeine Use: Reports: Soda - Recreational Drug Use Recreational Drug Use: Yes Drug Use in Last 12 Months: Yes Recreational Drug Type: Reports: Methamphetamine Recreational Drug Use Frequency: Weekly Recreational Drug Last Use: several months ago - Living Situation & Occupation Occupation: Employed (works in [employer] Review of Systems - Review of Systems Review Of Systems: See Below Constitutional: Denies: Fever Eyes: Reports: No Symptoms Respiratory: Reports: No Symptoms Cardiovascular: Reports: No Symptoms GI/Abdominal: Reports: No Symptoms Musculoskeletal: Reports: Shoulder Pain, Arm Pain (Right-sided) Skin: Denies: Rash, Erythema Neurological: Reports: Paresthesia (Intermittent tingling of the right arm) ED EXAM, GENERAL - Physical Exam Exam: See Below Exam Limited By: No Limitations General Appearance: Alert, No Apparent Distress Head: Atraumatic Neck: Supple, Non-Tender Respiratory/Chest: No Respiratory Distress, Lungs Clear Cardiovascular: Regular Rate, Rhythm Extremities: Other (Again this patient has significant palpation tenderness of the rhomboid area of the right shoulder. She has full range of motion actively, and if she abducts and externally rotates her arm she says the pain is "better".) Neurological: Alert, Oriented, No Motor/Sensory Deficits, Other (No decreased grasp strength on the right) Psychiatric: Flat Affect Skin Exam: Warm, Dry Course - Vital Signs Last Recorded V/S: Last Vital Signs Temp 97.4 F 12/21/20 12:20 Pulse 94 12/21/20 12:20 Resp 16 12/21/20 12:20 BP 128/67 12/21/20 12:20 Pulse Ox 97 12/21/20 12:20 - Orders/Labs/Meds Orders: Active Orders 24 hr Category Date Time Status CULTURE URINE [RM] Stat Lab 12/21/20 13:36 Received Labs: Laboratory Tests 12/21/20 12/21/20 Range/Units 13:01 13:09 Urine Color Yellow (YELLOW) Urine Appearance Cloudy A (CLEAR) Urine pH 6.0 (5.0-8.0) Ur Specific [place] 1.025 (1.008-1.030) Urine Protein Negative (NEGATIVE) mg/dL Urine Glucose (UA) Negative (NEGATIVE) mg/dL Urine Ketones Negative (NEGATIVE) mg/dL Urine Occult Blood Moderate H (NEGATIVE) Urine Nitrite Negative (NEGATIVE) Urine Bilirubin Negative (NEGATIVE) Urine Urobilinogen 0.2 (0.2-1.0) EU/dL Ur Leukocyte Esterase Large H (NEGATIVE) Urine RBC 5-10 H (0-5) Urine WBC 5-10 H (0-5) Ur Epithelial Cells Moderate Amorphous Sediment Not seen Urine Bacteria Many Urine Mucus Moderate Urine Opiates Screen Negative (NEGATIVE) Ur Oxycodone Screen Negative (NEGATIVE) Urine Methadone Screen Negative (NEGATIVE) Ur Propoxyphene Screen Negative (NEGATIVE) Ur Barbiturates Screen Negative (NEGATIVE) Ur Tricyclics Screen Negative (NEGATIVE) Ur Phencyclidine Scrn Negative (NEGATIVE) Ur Amphetamine Screen Presumptive positive H (NEGATIVE) U Methamphetamines Scrn Presumptive positive H (NEGATIVE) Urine MDMA Screen Negative (NEGATIVE) U Benzodiazepines Scrn Negative (NEGATIVE) U Cocaine Metab Screen Negative (NEGATIVE) U Marijuana (THC) Screen Negative (NEGATIVE) Meds: Medications Discontinued Medications Generic Name Dose Route Start Last Admin Trade Name Freq PRN Reason Stop Dose Admin Ketorolac Tromethamine 30 mg 12/21/20 13:01 12/21/20 13:11 Ketorolac 30 Mg/Ml Sdv IM 12/21/20 13:02 30 mg ONETIME ONE Administration - Re-Assessments/Exams Free Text/Narrative Re-Assessment/Exam: 12/21/20 13:42 Called her primary provider to discuss her symptoms and presentation. She was given 30 mg of IM Toradol, a urine drug screen and UA was obtained which showed positive for methamphetamine. There was also some bacteria so culture was initiated but she is asymptomatic so no treatment was given. This may be contaminated. An appointment was scheduled for 2:00 tomorrow afternoon with Shakila Ortiz. Departure - Departure Time of Disposition: 13:39 Disposition: Home, Self-Care 01 Clinical Impression: Pain, arm, right - Discharge Information Instructions: Neuropathic Pain Referrals: PCP,None [Primary Care Provider] - Forms: ED Department Discharge Care Plan Goals: Recheck with Shakila tomorrow at 2:00 in the afternoon for further evaluation and treatment options. Sepsis Event Note (ED) - Evaluation Sepsis Screening Result: No Definite Risk - Focused Exam Vital Signs: Vital Signs Temp Pulse Resp BP Pulse Ox 12/21/20 12:20 97.4 F 94 16 128/67 97 - My Orders Last 24 Hours: My Active Orders 12/21/20 13:36 CULTURE URINE [RM] Stat - Assessment/Plan Last 24 Hours: My Active Orders 12/21/20 13:36 CULTURE URINE [RM] Stat
[2020-12-21] MEDS ORDERED: Ketorolac 30 MG/ML SDV IM ONE (13:01)
== END 2020-12-21 13:40 | disposition home or self-care (01) ==
LOC: JP.ED 12:04
DX: M79.601 Pain in right arm (principal); E66.9 Obesity, unspecified; Z68.30 Body mass index [BMI] 30.0-30.9, adult; Z88.5 Allergy status to narcotic agent; Z72.0 Tobacco use
CPT/HCPCS: 80305; 81001; 87086; 96372; 99283; J1885

== ENCOUNTER 2021-03-10 17:23 | Emergency (ER) | payer MEDICAID ==
[2021-03-10] MEDS ORDERED: Diltiazem 25 MG/5 ML SDV IVPUSH ONE (18:06)
--- NOTE | 2021-03-10 18:09 | EDM.PDOC ---
ED HPI GENERAL MEDICAL PROBLEM - General Chief Complaint: Respiratory Problem Stated Complaint: CHEST PAIN AND IRREGULAR HEARTBEAT Time Seen by Provider: 03/10/21 17:50 Source of Information: Reports: Patient, Family History Limitations: Reports: No Limitations - History of Present Illness INITIAL COMMENTS - FREE TEXT/NARRATIVE: 45-year-old female who has been having palpitations and shortness of breath since the middle of the night last night. They were up working on her furnace and thinks she got some carbon monoxide exposure. Since that time she has been having chest tightness, palpitations, and generalized malaise. No nausea or vomiting. She has a history of anemia and there is concerned she may have an infection involving her IUD although she is not febrile. Shortness of breath with activity. Onset: Sudden (Symptoms started fairly suddenly in the middle of the night last night around 3 AM) Quality: Reports: Pressure Associated Symptoms: Reports: Chest Pain, Headaches (Mild headaches intermittent), Malaise, Shortness of Breath, Other (Palpitations). Denies: Cough, Fever/Chills, Loss of Appetite Chest Pain Score (Numeric/FACES): 7 - Related Data Allergies Allergy/AdvReac Type Severity Reaction Status Date / Time morphine AdvReac Vomiting Verified 03/10/21 18:25 Home Meds: Home Meds Vitamin B Complex/Folic Acid [Vitamin B-100 Complex] 1 tab PO DAILY 09/14/17 [History] traZODone HCl [Trazodone HCl] 50 mg PO BEDTIME PRN 06/03/18 [History] Pregabalin [Lyrica] 300 mg PO BEDTIME PRN 05/02/19 [History] Albuterol Sulfate [Albuterol Sulfate Hfa] 1 - 2 puff IN QID PRN 09/01/19 [History] Cetirizine [ZyrTEC] 10 mg PO DAILY 09/01/19 [History] rOPINIRole [Requip] 0.5 mg PO BEDTIME PRN 09/01/19 [History] Fluticasone Propionate [Flonase] 2 spray NS DAILY 09/07/19 [History] Iron,Carbonyl/Ascorbic Acid [Iron 100-Vitamin C Tablet] 1 each PO BID 09/07/19 [History] Folic Acid 1 mg PO DAILY 09/08/19 [History] Methimazole [Tapazole] 1 tab PO DAILY 08/03/20 [History] Propranolol [Inderal LA 24 Hr] 60 mg PO DAILY 12/12/20 [History] Past Medical History HEENT History: Reports: Allergic Rhinitis, Impaired Vision Other HEENT History: wears glasses Cardiovascular History: Reports: Other (See Below) Other Cardiovascular History: "fluid around my heart" Respiratory History: Reports: Pneumonia, Recurrent, Other (See Below) Other Respiratory History: "fluid around my lungs" Gastrointestinal History: Reports: Cholelithiasis, GERD Genitourinary History: Reports: UTI, Recurrent [employer] DIRECT[employer] History: Reports: Dysfunctional Uterine Bleeding, , Other (See Below) 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: enlarged 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 Musculoskeletal History: Reports: Other (See Below) Other Musculoskeletal History: complex regional pain disorder Neurological History: Reports: Concussion, Head Trauma Psychiatric History: Reports: Addiction Endocrine/Metabolic History: Reports: Obesity/BMI 30+ Hematologic History: Reports: Anemia, Blood Transfusion(s), Iron Deficiency Dermatologic History: Reports: Cellulitis - Infectious Disease History Infectious Disease History: Reports: Chicken Pox, Scarlet Fever - Past Surgical History Head Surgeries/Procedures: Reports: None HEENT Surgical History: Reports: None Respiratory Surgical History: Reports: None GI Surgical History: Reports: Cholecystectomy, Colonoscopy, EGD Female Surgical History: Reports: Tubal Ligation, Other (See Below) Other Female Surgeries/Procedures: menorhagia Endocrine Surgical History: Reports: None Neurological Surgical History: Reports: None Musculoskeletal Surgical History: Reports: None Dermatological Surgical History: Reports: Skin Graft Social & Family History - Family History Family Medical History: No Pertinent Family History Other Oncologic Family History: multiple types of cancer run in the family - Tobacco Use Tobacco Use Status *Q: Current Every Day Tobacco User Years of Tobacco use: 20 Packs/Tins Daily: 0.5 - Caffeine Use Caffeine Use: Reports: Soda - Recreational Drug Use Recreational Drug Use: Yes Recreational Drug Type: Reports: Methamphetamine - Living Situation & Occupation Occupation: Employed (works in [employer] ED [facility] GENERAL - Review of Systems Review Of Systems: See Below Constitutional: Reports: Malaise. Denies: Fever, Chills HEENT: Denies: Vision Change Respiratory: Reports: Shortness of Breath. Denies: Cough Cardiovascular: Reports: Dyspnea on Exertion GI/Abdominal: Denies: Abdominal Pain, Nausea, Vomiting : Reports: No Symptoms Musculoskeletal: Reports: Neck Pain, Back Pain Neurological: Reports: Dizziness, Headache, Weakness Psychiatric: Reports: Anxiety ED EXAM, GENERAL - Physical Exam Exam: See Below Exam Limited By: No Limitations General Appearance: Alert, No Apparent Distress, Anxious Eye Exam: Bilateral Eye: Normal Inspection Throat/Mouth: Normal Inspection Head: Atraumatic, Normocephalic Neck: Supple, Non-Tender Respiratory/Chest: Lungs Clear Cardiovascular: Tachycardia, Irregularly Irregular GI/Abdominal: Soft, Tender (Diffuse discomfort to palpation, apparently this is chronic) Neurological: Alert, Oriented Psychiatric: Anxious Skin Exam: Warm, Dry Course - Vital Signs Last Recorded V/S: Last Vital Signs Temp Pulse 70 03/10/21 18:36 Resp 25 H 03/10/21 18:36 BP 97/55 L 03/10/21 18:36 Pulse Ox 99 03/10/21 18:36 - Orders/Labs/Meds Orders: Active Orders 24 hr Category Date Time Status EKG 12 Lead [EK] Routine Ther 03/10/21 17:24 Ordered EKG 12 Lead [EK] Routine Ther 03/10/21 18:02 Stop Req Labs: Laboratory Tests 03/10/21 03/10/21 03/10/21 Range/Units 18:11 18:11 19:47 WBC 4.4 L (4.5-11.0) K/uL RBC 4.37 (3.30-5.50) M/uL Hgb 11.6 L (12.0-15.0) g/dL Hct 35.4 L (36.0-48.0) % MCV 81 (80-98) fL MCH 27 (27-31) pg MCHC 33 (32-36) % Plt Count 200 (150-400) K/uL Neut % (Auto) 45.8 (36-66) % Lymph % (Auto) 30.2 (24-44) % [place] % (Auto) 21.3 H (2-6) % Eos % (Auto) 2.5 (2-4) % Baso % (Auto) 0.2 (0-1) % Sodium 139 L (140-148) mmol/L Potassium 4.1 (3.6-5.2) mmol/L Chloride 105 (100-108) mmol/L Carbon Dioxide 26 (21-32) mmol/L Anion Gap 12.1 (5.0-14.0) mmol/L BUN 16 (7-18) mg/dL Creatinine 0.5 L (0.6-1.0) mg/dL Est Cr Clr Drug Dosing 121.40 mL/min Estimated GFR (MDRD) > 60 (>60) Glucose 136 H (74-106) mg/dL Calcium 8.7 (8.5-10.1) mg/dL Total Bilirubin 0.3 (0.2-1.0) mg/dL AST 21 (15-37) U/L ALT 23 (12-78) U/L Alkaline Phosphatase 95 (46-116) U/L Troponin I High Sens 18.1 (<=60.3) pg/mL Total Protein 5.6 L (6.4-8.2) g/dL Albumin 2.5 L (3.4-5.0) g/dL Globulin 3.1 (2.3-3.5) g/dL Albumin/Globulin Ratio 0.8 L (1.2-2.2) Urine Color Yellow (YELLOW) Urine Appearance Cloudy A (CLEAR) Urine pH 7.0 (5.0-8.0) Ur Specific [place] 1.025 (1.008-1.030) Urine Protein >=300 H (NEGATIVE) mg/dL Urine Glucose (UA) Negative (NEGATIVE) mg/dL Urine Ketones 15 H (NEGATIVE) mg/dL Urine Occult Blood Moderate H (NEGATIVE) Urine Nitrite Negative (NEGATIVE) Urine Bilirubin Moderate H (NEGATIVE) Urine Urobilinogen 4.0 H (0.2-1.0) EU/dL Ur Leukocyte Esterase Small H (NEGATIVE) Urine RBC 10-20 H (0-5) Urine WBC 10-20 H (0-5) Ur Epithelial Cells Many Amorphous Sediment Not seen Urine Bacteria Many Urine Mucus Not seen Urine Opiates Screen (NEGATIVE) Ur Oxycodone Screen (NEGATIVE) Urine Methadone Screen (NEGATIVE) Ur Propoxyphene Screen (NEGATIVE) Ur Barbiturates Screen (NEGATIVE) Ur Tricyclics Screen (NEGATIVE) Ur Phencyclidine Scrn (NEGATIVE) Ur Amphetamine Screen (NEGATIVE) U Methamphetamines Scrn (NEGATIVE) Urine MDMA Screen (NEGATIVE) U Benzodiazepines Scrn (NEGATIVE) U Cocaine Metab Screen (NEGATIVE) U Marijuana (THC) Screen (NEGATIVE) 03/10/21 Range/Units 19:47 WBC (4.5-11.0) K/uL RBC (3.30-5.50) M/uL Hgb (12.0-15.0) g/dL Hct (36.0-48.0) % MCV (80-98) fL MCH (27-31) pg MCHC (32-36) % Plt Count (150-400) K/uL Neut % (Auto) (36-66) % Lymph % (Auto) (24-44) % [place] % (Auto) (2-6) % Eos % (Auto) (2-4) % Baso % (Auto) (0-1) % Sodium (140-148) mmol/L Potassium (3.6-5.2) mmol/L Chloride (100-108) mmol/L Carbon Dioxide (21-32) mmol/L Anion Gap (5.0-14.0) mmol/L BUN (7-18) mg/dL Creatinine (0.6-1.0) mg/dL Est Cr Clr Drug Dosing mL/min Estimated GFR (MDRD) (>60) Glucose (74-106) mg/dL Calcium (8.5-10.1) mg/dL Total Bilirubin (0.2-1.0) mg/dL AST (15-37) U/L ALT (12-78) U/L Alkaline Phosphatase (46-116) U/L Troponin I High Sens (<=60.3) pg/mL Total Protein (6.4-8.2) g/dL Albumin (3.4-5.0) g/dL Globulin (2.3-3.5) g/dL Albumin/Globulin Ratio (1.2-2.2) Urine Color (YELLOW) Urine Appearance (CLEAR) Urine pH (5.0-8.0) Ur Specific [place] (1.008-1.030) Urine Protein (NEGATIVE) mg/dL Urine Glucose (UA) (NEGATIVE) mg/dL Urine Ketones (NEGATIVE) mg/dL Urine Occult Blood (NEGATIVE) Urine Nitrite (NEGATIVE) Urine Bilirubin (NEGATIVE) Urine Urobilinogen (0.2-1.0) EU/dL Ur Leukocyte Esterase (NEGATIVE) Urine RBC (0-5) Urine WBC (0-5) Ur Epithelial Cells Amorphous Sediment Urine Bacteria Urine Mucus Urine Opiates Screen Negative (NEGATIVE) Ur Oxycodone Screen Negative (NEGATIVE) Urine Methadone Screen Negative (NEGATIVE) Ur Propoxyphene Screen Negative (NEGATIVE) Ur Barbiturates Screen Negative (NEGATIVE) Ur Tricyclics Screen Negative (NEGATIVE) Ur Phencyclidine Scrn Negative (NEGATIVE) Ur Amphetamine Screen Presumptive positive H (NEGATIVE) U Methamphetamines Scrn Presumptive positive H (NEGATIVE) Urine MDMA Screen Negative (NEGATIVE) U Benzodiazepines Scrn Negative (NEGATIVE) U Cocaine Metab Screen Negative (NEGATIVE) U Marijuana (THC) Screen Negative (NEGATIVE) Meds: Medications Discontinued Medications Generic Name Dose Route Start Last Admin Trade Name Isaias PRN Reason Stop Dose Admin Diltiazem HCl 20 mg 03/10/21 18:06 03/10/21 18:24 Diltiazem 25 Mg/5 Ml Sdv IVPUSH 03/10/21 18:07 20 mg ONETIME ONE Administration Sodium Chloride 1,000 mls @ 1,000 mls/hr 03/10/21 18:45 03/10/21 18:35 Normal Saline IV 1,000 mls/hr ASDIRECTED NANCIE Administration Propofol 200 mg 03/10/21 18:51 03/10/21 18:58 Propofol 200 Mg/20 Ml Sdv IVPUSH 03/10/21 18:52 200 mg ONETIME ONE Administration - Re-Assessments/Exams Free Text/Narrative Re-Assessment/Exam: 03/10/21 19:13 CBC CMP and troponin were obtained. Hemoglobin is 11.6 which is very good for her, white count is 4400. Electrolytes are within normal limits and troponin is normal. Dr. Goyal of the hospitalist service was consulted for cardioversion, and consent was obtained for elective cardioversion under propofol anesthesia. Using 100 mg of IV propofol the patient was appropriately sedated, 1 200 J shock was given which converted her initially into a junctional rhythm and eventually a sinus rhythm. Post cardioversion EKG was obtained which was normal other than bradycardia. She recovered nicely. 03/10/21 20:41 Urine was obtained and showed a urine positive for methamphetamine, she was informed that methamphetamine is a likely cause of atrial fibrillation. She should resume her regular medications and avoid abusing this in the future. Departure - Departure Time of Disposition: 20:07 Disposition: Home, Self-Care 01 Clinical Impression: Atrial fibrillation with RVR, Methamphetamine abuse - Discharge Information Instructions: Atrial Fibrillation, [id number] Referrals: Shakila Ortiz PA-C [Primary Care Provider] - Forms: ED Department Discharge Care Plan Goals: It is very important that you take your regular medications as prescribed and avoid abusing methamphetamine as it can cause atrial fibrillation. Recheck with your primary provider in the next several days if you have any persistent problems, or return to the emergency room if you redevelop palpitations and chest pain. Sepsis Event Note (ED) - Evaluation Sepsis Screening Result: No Definite Risk - Focused Exam Vital Signs: Vital Signs Pulse Resp BP Pulse Ox 03/10/21 18:36 70 25 H 97/55 L 99 03/10/21 18:27 56 L 21 H 93/57 L 100 03/10/21 18:22 93/52 L 03/10/21 18:19 86 16 93/52 L 98 03/10/21 17:50 119 H 20 130/93 H 99 03/10/21 17:42 144 H 25 H 115/78 99 - My Orders Last 24 Hours: My Active Orders 03/10/21 18:02 EKG 12 Lead [EK] Routine - Assessment/Plan Last 24 Hours: My Active Orders 03/10/21 18:02 EKG 12 Lead [EK] Routine
[2021-03-10 18:37] VITALS: BP 97/55; PULSE 70
[2021-03-10] MEDS ORDERED: Sodium Chloride 0.9% 1,000 ML IV SCH (18:45)
[2021-03-10] MEDS ORDERED: Propofol 200 MG/20 ML SDV IVPUSH ONE (18:51)
--- NOTE | 2021-03-10 19:08 | PCM.PRNOTE ---
- Free Text/Narrative Note: Date of service: 03/10/2021 Proposed procedure: Synchronized cardioversion Preprocedure diagnosis: Paroxysmal atrial fibrillation with rapid ventricular response Post procedure diagnosis: Paroxysmal atrial fibrillation with rapid ventricular response Indication for procedure: Steffany was evaluated today for management atrial fibrillation with symptoms and rapid ventricular response. Synchronized cardioversion was recommended as a primary treatment. Description of the procedure: Steffany is currently located [facility]. We have reviewed the potential risks of electrical cardioversion including but not limited to: Superficial skin dodd, ineffective treatment, other arrhythmias, reaction to anesthesia medications or potentially asystole. The benefits of the procedure have also been reviewed. At this time the patient wishes to proceed with electrical cardioversion. All necessary pre-procedure information and paperwork has been provided and completed, respectively. The patient was connected to cardioversion pads and monitoring equipment per protocol. Prior to the procedure, a timeout was held with nursing and anesthesia present to confirm the right patient and right procedure. Once appropriate anesthesia was applied the machine was charged to 200 Joules and a synchronized electrical shock was applied. The patient was successfully converted to normal sinus rhythm based on telemetry monitoring. They will remain in their current location until anesthesia has dissipated and the patient is more awake and alert. They will then be discharged to home once medically stable. There were no immediate complications noted from the procedure. Post procedure EKG is pending at the time of dictation. Mundo Goyal M.D.
== END 2021-03-10 20:07 | disposition home or self-care (01) ==
LOC: JP.ED 17:23
DX: I48.91 Unspecified atrial fibrillation (principal); F15.10 Other stimulant abuse, uncomplicated; F17.210 Nicotine dependence, cigarettes, uncomplicated; Z88.5 Allergy status to narcotic agent; Z79.899 Other long term (current) drug therapy; Z90.49 Acquired absence of other specified parts of digestive tract
CPT/HCPCS: 36415; 80053; 80305; 81001; 84484; 85025; 93005; 96374; 99285; J2704; J3490; J7030

== ENCOUNTER 2021-03-17 14:48 | Emergency (ER) | payer MEDICAID ==
[2021-03-17] MEDS ORDERED: Aspirin 81 MG Tab.Chew PO ONE (14:56)
[2021-03-17] MEDS ORDERED: Morphine 4 MG/ML Syringe IVPUSH PRN (14:56)
[2021-03-17] MEDS ORDERED: Sodium Chloride 0.9% 10 ML Syringe FLUSH PRN (14:56)
--- NOTE | 2021-03-17 15:02 | EDM.PDOC ---
ED HPI GENERAL MEDICAL PROBLEM - General Chief Complaint: Chest Pain Stated Complaint: chest pains Time Seen by Provider: 03/17/21 14:57 Source of Information: Reports: Patient, Old Records, RN Notes Reviewed History Limitations: Reports: No Limitations - History of Present Illness INITIAL COMMENTS - FREE TEXT/NARRATIVE: 45-year-old female presents emergency department day complaint of chest pain, she states the pain is in the center of her chest radiates up into her neck chest pain started this morning really is a dull ache but that has progressively gotten worse throughout the day she does feel short of breath does feel nauseated no diaphoresis, has a history of atrial fibrillation with RVR this happened on March 10 family history Father of myocardial infarction age 50 she does have a history of methamphetamine use positive drug screen 1 week ago thank you Chest Pain Score (Numeric/FACES): 10 - Related Data Allergies Allergy/AdvReac Type Severity Reaction Status Date / Time morphine AdvReac Vomiting Verified 03/10/21 18:25 Home Meds: Home Meds Vitamin B Complex/Folic Acid [Vitamin B-100 Complex] 1 tab PO DAILY 09/14/17 [History] traZODone HCl [Trazodone HCl] 50 mg PO BEDTIME PRN 06/03/18 [History] Pregabalin [Lyrica] 300 mg PO BEDTIME PRN 05/02/19 [History] Albuterol Sulfate [Albuterol Sulfate Hfa] 1 - 2 puff IN QID PRN 09/01/19 [History] Cetirizine [ZyrTEC] 10 mg PO DAILY 09/01/19 [History] rOPINIRole [Requip] 0.5 mg PO BEDTIME PRN 09/01/19 [History] Fluticasone Propionate [Flonase] 2 spray NS DAILY 09/07/19 [History] Iron,Carbonyl/Ascorbic Acid [Iron 100-Vitamin C Tablet] 1 each PO BID 09/07/19 [History] Folic Acid 1 mg PO DAILY 09/08/19 [History] Methimazole [Tapazole] 1 tab PO DAILY 08/03/20 [History] Propranolol [Inderal LA 24 Hr] 60 mg PO DAILY 12/12/20 [History] Past Medical History HEENT History: Reports: Allergic Rhinitis, Impaired Vision Other HEENT History: wears glasses Cardiovascular History: Reports: Other (See Below) Other Cardiovascular History: "fluid around my heart" Respiratory History: Reports: Pneumonia, Recurrent, Other (See Below) Other Respiratory History: "fluid around my lungs" Gastrointestinal History: Reports: Cholelithiasis, GERD Genitourinary History: Reports: UTI, Recurrent ENGINEERING AND DEVELOPMENT DIRECTOR History: Reports: Dysfunctional Uterine Bleeding, , Other (See Below) Other ENGINEERING AND DEVELOPMENT DIRECTOR History: enlarged uterus Musculoskeletal History: Reports: Other (See Below) Other Musculoskeletal History: complex regional pain disorder Neurological History: Reports: Concussion, Head Trauma Psychiatric History: Reports: Addiction Endocrine/Metabolic History: Reports: Obesity/BMI 30+ Hematologic History: Reports: Anemia, Blood Transfusion(s), Iron Deficiency Dermatologic History: Reports: Cellulitis - Infectious Disease History Infectious Disease History: Reports: Chicken Pox, Scarlet Fever - Past Surgical History Head Surgeries/Procedures: Reports: None HEENT Surgical History: Reports: None Respiratory Surgical History: Reports: None GI Surgical History: Reports: Cholecystectomy, Colonoscopy, EGD Female Surgical History: Reports: Tubal Ligation, Other (See Below) Other Female Surgeries/Procedures: menorhagia Endocrine Surgical History: Reports: None Neurological Surgical History: Reports: None Musculoskeletal Surgical History: Reports: None Dermatological Surgical History: Reports: Skin Graft Social & Family History - Family History Family Medical History: No Pertinent Family History Other Oncologic Family History: multiple types of cancer run in the family - Caffeine Use Caffeine Use: Reports: Soda - Living Situation & Occupation Occupation: Employed (works in [employer] ED ROS GENERAL - Review of Systems Review Of Systems: See Below Constitutional: Reports: Diaphoresis HEENT: Reports: No Symptoms Respiratory: Reports: Shortness of Breath Cardiovascular: Reports: Chest Pain GI/Abdominal: Reports: No Symptoms ED EXAM, GENERAL - Physical Exam Exam: See Below Exam Limited By: No Limitations General Appearance: Alert, Mild Distress Respiratory/Chest: No Respiratory Distress, Lungs Clear, Normal Breath Sounds, No Accessory Muscle Use, Chest Non-Tender Cardiovascular: Regular Rate, Rhythm, No Murmur GI/Abdominal: Soft, Non-Tender Extremities: No Pedal Edema #1 Interpretation EKG Date: 03/17/21 Rhythm: NSR [place]: Normal P-Wave: Present QRS: Normal ST-T: Normal QT: Normal Comparison: Other: (Last EKG on 1230 shows A. fib however the EKG on 12 4 similar to this 1) Course - Vital Signs Last Recorded V/S: Last Vital Signs Temp 98.2 F 03/17/21 14:59 Pulse 81 03/17/21 16:01 Resp 25 H 03/17/21 16:01 BP 128/41 L 03/17/21 16:01 Pulse Ox 99 03/17/21 16:01 - Orders/Labs/Meds Orders: Active Orders 24 hr Category Date Time Status Cardiac Monitoring [RC] .As Directed Care 03/17/21 14:56 Active Peripheral IV Care [RC] . DIRECTED Care 03/17/21 14:57 Active COVID-19/FLU A+B/RSV [MOLEC] Urgent Lab 03/17/21 18:01 Ordered Nitroglycerin [Nitrostat] Med 03/17/21 14:56 Active 0.4 mg SL Q5M PRN Sodium Chloride 0.9% [Saline Flush] Med 03/17/21 14:56 Active 10 ml FLUSH ASDIRECTED PRN Isolation [COMM] Stat Oth 03/17/21 18:01 Ordered Peripheral IV Insertion Adult [OM.PC] Stat Oth 03/17/21 14:56 Ordered Saline Lock Insert [OM.PC] Stat Oth 03/17/21 14:56 Ordered EKG 12 Lead [EK] Stat Ther 03/17/21 14:57 Ordered Medication Orders Nitroglycerin (Nitroglycerin 0.4 Mg Tab.Sl) 0.4 mg SL Q5M PRN PRN Reason: Chest Pain Stop: 03/18/21 14:56 Last Admin: 03/17/21 15:16 Dose: 0.4 mg Documented by: Admin: 03/17/21 15:10 Dose: 0.4 mg Documented by: ERICKA Sodium Chloride (Sodium Chloride 0.9% 10 Ml Syringe) 10 ml FLUSH ASDIRECTED PRN PRN Reason: Keep Vein Open Labs: Laboratory Tests 03/17/21 03/17/21 03/17/21 Range/Units 15:02 15:02 15:02 WBC 4.5 (3.2-11.0) K/uL RBC 4.08 (3.77-5.24) M/uL Hgb 10.9 L (11.2-15.5) Hct 33.9 L (34.3-46.0) % MCV 83.1 (81.4-99.0) fL MCH 26.7 L (31.6-35.5) pg MCHC 32.2 (31.6-35.5) g/dL Plt Count 153 (130-375) K/uL Immature Gran % (Auto) 0.0 (0.0-0.7) % Neut % (Auto) 48.8 (36-66) % Lymph % (Auto) 32.7 (24-44) % [place] % (Auto) 14.6 H (2-6) % Eos % (Auto) 3.5 (2-4) % Baso % (Auto) 0.4 (0-1) % Neut # (Auto) 2.20 (1.0-7.6) K/uL Lymph # (Auto) 1.48 (0.8-3.3) K/uL [place] # (Auto) 0.66 (0.20-0.90) K/uL Eos # (Auto) 0.16 (0.00-0.40) K/uL Baso # (Auto) 0.02 (0.00-0.10) K/uL Sodium 142 (140-148) mmol/L Potassium 3.4 L (3.6-5.2) mmol/L Chloride 108 (100-108) mmol/L Carbon Dioxide 26 (21-32) mmol/L Anion Gap 11.4 (5.0-14.0) mmol/L BUN 14 (7-18) mg/dL Creatinine 0.5 L (0.6-1.0) mg/dL Est Cr Clr Drug Dosing 121.40 mL/min Estimated GFR (MDRD) > 60 (>60) Glucose 124 H (74-106) mg/dL Lactic Acid 1.6 (0.4-2.0) mmol/L Calcium 8.3 L (8.5-10.1) mg/dL Total Bilirubin 0.3 (0.2-1.0) mg/dL AST 18 (15-37) U/L ALT 28 (12-78) U/L Alkaline Phosphatase 108 (46-116) U/L Troponin I High Sens 12.2 (<=60.3) pg/mL Total Protein 5.9 L (6.4-8.2) g/dL Albumin 2.5 L (3.4-5.0) g/dL Globulin 3.4 (2.3-3.5) g/dL Albumin/Globulin Ratio 0.7 L (1.2-2.2) 03/17/21 Range/Units 17:32 WBC (3.2-11.0) K/uL RBC (3.77-5.24) M/uL Hgb (11.2-15.5) Hct (34.3-46.0) % MCV (81.4-99.0) fL MCH (31.6-35.5) pg MCHC (31.6-35.5) g/dL Plt Count (130-375) K/uL Immature Gran % (Auto) (0.0-0.7) % Neut % (Auto) (36-66) % Lymph % (Auto) (24-44) % [place] % (Auto) (2-6) % Eos % (Auto) (2-4) % Baso % (Auto) (0-1) % Neut # (Auto) (1.0-7.6) K/uL Lymph # (Auto) (0.8-3.3) K/uL [place] # (Auto) (0.20-0.90) K/uL Eos # (Auto) (0.00-0.40) K/uL Baso # (Auto) (0.00-0.10) K/uL Sodium (140-148) mmol/L Potassium (3.6-5.2) mmol/L Chloride (100-108) mmol/L Carbon Dioxide (21-32) mmol/L Anion Gap (5.0-14.0) mmol/L BUN (7-18) mg/dL Creatinine (0.6-1.0) mg/dL Est Cr Clr Drug Dosing mL/min Estimated GFR (MDRD) (>60) Glucose (74-106) mg/dL Lactic Acid (0.4-2.0) mmol/L Calcium (8.5-10.1) mg/dL Total Bilirubin (0.2-1.0) mg/dL AST (15-37) U/L ALT (12-78) U/L Alkaline Phosphatase (46-116) U/L Troponin I High Sens 11.0 (<=60.3) pg/mL Total Protein (6.4-8.2) g/dL Albumin (3.4-5.0) g/dL Globulin (2.3-3.5) g/dL Albumin/Globulin Ratio (1.2-2.2) Meds: Medications Generic Name Dose Route Start Last Admin Trade Name Isaias PRN Reason Stop Dose Admin Nitroglycerin 0.4 mg 03/17/21 14:56 03/17/21 15:16 Nitroglycerin 0.4 Mg Tab.Sl SL 03/18/21 14:56 0.4 mg Q5M PRN Administration Chest Pain Sodium Chloride 10 ml 03/17/21 14:56 Sodium Chloride 0.9% 10 Ml Syringe FLUSH ASDIRECTED PRN Keep Vein Open Discontinued Medications Generic Name Dose Route Start Last Admin Trade Name Freq PRN Reason Stop Dose Admin Aspirin 324 mg 03/17/21 14:56 03/17/21 15:10 Aspirin 81 Mg Tab.Chew PO 03/17/21 14:57 324 mg ONETIME ONE Administration Ketorolac Tromethamine 30 mg 03/17/21 16:01 03/17/21 16:05 Ketorolac 30 Mg/Ml Sdv IVPUSH 03/17/21 16:02 30 mg ONETIME ONE Administration Lorazepam 1 mg 03/17/21 15:17 03/17/21 15:22 Lorazepam 2 Mg/Ml Sdv IVPUSH 03/17/21 15:18 1 mg ONETIME ONE Administration Morphine Sulfate 4 mg 03/17/21 14:56 Morphine 4 Mg/Ml Syringe IVPUSH 03/18/21 14:56 Q10M PRN Chest Pain Departure - Departure Time of Disposition: 18:27 Disposition: Home, Self-Care 01 Condition: Fair Clinical Impression: Atypical chest pain Instructions: Nonspecific Chest Pain, Adult Referrals: PCP,Unknown [Primary Care Provider] - Forms: ED Department Discharge Additional Instructions: Continue to use anti-inflammatory such as Motrin or naproxen as needed for pain control, please followup with your primary care provider in 3-5 days if not better, please call return to the emergency department with worsening of symptoms. Sepsis Event Note (ED) - Focused Exam Vital Signs: Vital Signs Temp Pulse Resp BP BP Pulse Ox 03/17/21 16:01 81 25 H 128/41 L 99 03/17/21 15:26 96 20 144/66 H 97 03/17/21 15:16 154/58 H 03/17/21 15:10 161/68 H 03/17/21 14:59 98.2 F 83 20 148/59 H 99 - My Orders Last 24 Hours: My Active Orders 03/17/21 14:56 Cardiac Monitoring [RC] .As Directed Nitroglycerin [Nitrostat] 0.4 mg SL Q5M PRN Sodium Chloride 0.9% [Saline Flush] 10 ml FLUSH ASDIRECTED PRN Peripheral IV Insertion Adult [OM.PC] Stat Saline Lock Insert [OM.PC] Stat 03/17/21 14:57 Peripheral IV Care [RC] . DIRECTED EKG 12 Lead [EK] Stat 03/17/21 18:01 COVID-19/FLU A+B/RSV [MOLEC] Urgent Isolation [COMM] Stat - Assessment/Plan Last 24 Hours: My Active Orders 03/17/21 14:56 Cardiac Monitoring [RC] .As Directed Nitroglycerin [Nitrostat] 0.4 mg SL Q5M PRN Sodium Chloride 0.9% [Saline Flush] 10 ml FLUSH ASDIRECTED PRN Peripheral IV Insertion Adult [OM.PC] Stat Saline Lock Insert [OM.PC] Stat 03/17/21 14:57 Peripheral IV Care [RC] . DIRECTED EKG 12 Lead [EK] Stat 03/17/21 18:01 COVID-19/FLU A+B/RSV [MOLEC] Urgent Isolation [COMM] Stat Plan: Assessment Acuity = acute Site and laterality = atypical chest pain Etiology = unknown Manifestations = none Location of injury = Home Lab values = CBC unremarkable potassium slightly low 3.4 consistent hypokalemia lactic acid normal 1.6 troponin initially 12-second repeat troponin 2 hours later was at [address] elevations or depressions chest x-ray unremarkable COVID is pending Plan She had some relief with the Toradol provided in the emergency department for chest pain, have her follow-up with her primary care in the next 3 to 5 days for reevaluation This note was dictated using [employer] voice recognition software please call with any questions on syntax or grammar.
[2021-03-17] MEDS: Nitroglycerin 0.4 MG Tab.SL SL PRN ×2 (15:10→15:16)
[2021-03-17] MEDS ORDERED: LORazepam 2 MG/ML SDV IVPUSH ONE (15:17)
--- NOTE | 2021-03-17 15:30 | CR ---
CHEST: Portable 03/17/2021 at 3:06 PM CLINICAL HISTORY:Chest pain COMPARISON:2019 FINDINGS: Heart size and pulmonary vascular normal. There is mild prominence of perihilar lung markings. There is also some scattered interstitial prominence. Some of this is similar to prior exams. Impression: Generalized increase in lung markings. Some of this may be chronic
[2021-03-17] MEDS ORDERED: Ketorolac 30 MG/ML SDV IVPUSH ONE (16:01)
[2021-03-17 18:27] VITALS: BP 97/49; PULSE 89
[2021-03-17 18:51] LABS: CORONAVIRUS COVID-19 NAA NEGATIVE (NEGATIVE)
== END 2021-03-17 18:55 | disposition home or self-care (01) ==
LOC: JP.ED 14:48
DX: R07.89 Other chest pain (principal); K21.9 Gastro-esophageal reflux disease without esophagitis; E66.9 Obesity, unspecified; Z68.30 Body mass index [BMI] 30.0-30.9, adult; Z88.5 Allergy status to narcotic agent
CPT/HCPCS: 0241U; 36415; 71045; 80053; 83605; 84484; 85025; 93005; 96374; 96375; 99285; A9270; J1885; J2060

== ENCOUNTER 2021-05-09 00:24 | Emergency (ER) | payer MEDICAID ==
[2021-05-09] MEDS ORDERED: Diltiazem 25 MG/5 ML SDV IVPUSH ONE (00:27)
[2021-05-09] MEDS: Diltiazem 100 MG in Sodium Chloride 0.9% 100 ML IV SCH ×2 (01:05→07:49)
[2021-05-09] MEDS ORDERED: Ketorolac 30 MG/ML SDV IVPUSH ONE (01:19)
[2021-05-09] MEDS ORDERED: LORazepam 2 MG/ML SDV IVPUSH ONE (01:41)
[2021-05-09] MEDS ORDERED: Apixaban 5 MG Tab PO ONE (09:08)
[2021-05-09] MEDS ORDERED: Acetaminophen 325 MG Tab PO ONE (09:08)
[2021-05-09 11:08] VITALS: BP 98/48; PULSE 80
== END 2021-05-09 10:58 | disposition home or self-care (01) ==
LOC: JP.ED 00:24
DX: R07.89 Other chest pain (principal); F15.10 Other stimulant abuse, uncomplicated; I48.91 Unspecified atrial fibrillation; K21.9 Gastro-esophageal reflux disease without esophagitis; E66.9 Obesity, unspecified; Z68.29 Body mass index [BMI] 29.0-29.9, adult; Z88.5 Allergy status to narcotic agent; Z79.899 Other long term (current) drug therapy
CPT/HCPCS: 36415; 80053; 80305-QW; 81001; 84484; 85025; 85379; 85610; 93005; 93010; 96365; 96366; 96375; 96376; 99283; 99285-25; A9270-GY; J1885; J2060; J3490

== ENCOUNTER 2021-05-20 09:50 | Observation (INO) | payer MEDICAID ==
[2021-05-20] MEDS ORDERED: Sodium Chloride 0.9% 10 ML Syringe FLUSH PRN (09:56)
[2021-05-20] MEDS ORDERED: Diltiazem 25 MG/5 ML SDV IVPUSH ONE (09:56)
[2021-05-20] MEDS ORDERED: Diltiazem 100 MG in Sodium Chloride 0.9% 100 ML IV SCH (10:00)
[2021-05-20] MEDS ORDERED: Aspirin 81 MG Tab.Chew PO ONE (10:04)
[2021-05-20] MEDS ORDERED: Morphine 2 MG/ML SYRINGE IVPUSH ONE (10:04)
[2021-05-20] MEDS ORDERED: Ondansetron 4 MG/2 ML SDV IVPUSH ONE (10:04)
[2021-05-20] MEDS ORDERED: Labetalol 20 MG/4 ML Syringe IVPUSH ONE ×2 (11:22→15:21)
[2021-05-20] MEDS ORDERED: diphenhydrAMINE 50 MG/ML SDV IVPUSH ONE (13:31)
[2021-05-20] MEDS: Diltiazem 100 MG in Sodium Chloride 0.9% 100 ML IV SCH (16:54)
[2021-05-20] MEDS ORDERED: Magnesium Hydroxide 400 MG/5 ML Susp 30 ML Cup PO PRN (18:01)
[2021-05-20] MEDS ORDERED: Pregabalin 100 MG Cap PO PRN (18:01)
[2021-05-20] MEDS ORDERED: Ondansetron 4 MG Tab.DIS PO PRN (18:01)
[2021-05-20] MEDS ORDERED: Potassium Chloride 20 MEQ Tab.ER PO ONE (18:01)
[2021-05-20] MEDS ORDERED: LORazepam 2 MG/ML SDV IVPUSH PRN (18:01)
[2021-05-20] MEDS ORDERED: Albuterol 8 GM Inhaler INH PRN (18:01)
[2021-05-20] MEDS ORDERED: Ondansetron 4 MG/2 ML SDV IV PRN (18:01)
[2021-05-20] MEDS ORDERED: rOPINIRole 0.5 MG Tab PO PRN (18:01)
[2021-05-20] MEDS ORDERED: Melatonin 3 MG Tab PO PRN (18:01)
[2021-05-20] MEDS ORDERED: Methimazole 5 MG Tab PO SCH (21:00)
[2021-05-20] MEDS ORDERED: Non-Formulary Medication 1 Each (Amoxicillin [Amoxicillin] 500 MG Capsule) PO SCH (21:00)
[2021-05-20] MEDS: Amoxicillin 500 MG Cap PO SCH (21:05)
[2021-05-20] MEDS: Apixaban 5 MG Tab PO SCH (21:05)
[2021-05-20] MEDS: Metoprolol Tartrate 25 MG Tab PO SCH (21:05)
[2021-05-20] MEDS: traZODone 50 MG Tab PO PRN (23:07)
[2021-05-21] MEDS: Diltiazem 100 MG in Sodium Chloride 0.9% 100 ML IV SCH (03:13)
[2021-05-21] MEDS: Acetaminophen 325 MG Tab PO PRN ×4 (05:11→21:24)
[2021-05-21] MEDS: Metoprolol Tartrate 25 MG Tab PO SCH ×2 (08:16→20:26)
[2021-05-21] MEDS: Apixaban 5 MG Tab PO SCH ×2 (08:17→20:26)
[2021-05-21] MEDS: Amoxicillin 500 MG Cap PO SCH ×3 (08:17→20:25)
[2021-05-21] MEDS: Folic Acid 1 MG Tab PO SCH (08:18)
[2021-05-21] MEDS: Cetirizine 10 MG Tab PO SCH (08:18)
[2021-05-21] MEDS: METHIMAZOLE 10 MG PO SCH ×3 (09:22→20:27)
[2021-05-21] MEDS ORDERED: Benzocaine/Cetylpyridinium/Menthol Lozenge MUCMEM PRN (09:37)
[2021-05-21] MEDS: Diltiazem IR 30 MG Tab PO SCH ×3 (10:06→22:14)
[2021-05-21] MEDS: Simethicone 125 MG Tab.Chew PO PRN (10:24)
[2021-05-22] MEDS: traZODone 50 MG Tab PO PRN (01:03)
[2021-05-22] MEDS: Simethicone 125 MG Tab.Chew PO PRN (01:03)
[2021-05-22] MEDS: Diltiazem IR 30 MG Tab PO SCH ×2 (03:12→09:07)
[2021-05-22] MEDS: Acetaminophen 325 MG Tab PO PRN ×3 (04:57→13:38)
[2021-05-22] MEDS: Apixaban 5 MG Tab PO SCH (08:46)
[2021-05-22] MEDS: Amoxicillin 500 MG Cap PO SCH ×2 (08:46→13:10)
[2021-05-22] MEDS: Folic Acid 1 MG Tab PO SCH (08:47)
[2021-05-22] MEDS: METHIMAZOLE 10 MG PO SCH ×2 (08:49→13:10)
[2021-05-22] MEDS: Cetirizine 10 MG Tab PO SCH (08:49)
[2021-05-22] MEDS ORDERED: Metoprolol Succinate 50 MG Tab.ER PO SCH (09:00)
[2021-05-22] MEDS ORDERED: Diltiazem 180 MG Cap.CD PO SCH (10:15)
[2021-05-22 11:04] VITALS: BP 111/49; PULSE 82
== END 2021-05-22 14:15 | disposition home or self-care (01) ==
LOC: JP.ED 09:50 → JP.ICU 17:24 → INTOOBSV 17:24
PROVIDERS: ADMIT Internal Medicine; ATTEND Internal Medicine
DX: I48.91 Unspecified atrial fibrillation (principal); E05.01 Thyrotoxicosis with diffuse goiter with thyrotoxic crisis or storm; F17.210 Nicotine dependence, cigarettes, uncomplicated; E87.6 Hypokalemia; F15.10 Other stimulant abuse, uncomplicated; K21.9 Gastro-esophageal reflux disease without esophagitis; D50.9 Iron deficiency anemia, unspecified; H54.7 Unspecified visual loss; E66.9 Obesity, unspecified; Z68.30 Body mass index [BMI] 30.0-30.9, adult; Z98.890 Other specified postprocedural states; Z88.6 Allergy status to analgesic agent; Z79.01 Long term (current) use of anticoagulants; Z79.899 Other long term (current) drug therapy; Z90.49 Acquired absence of other specified parts of digestive tract
CPT/HCPCS: 36415; 71045; 80048; 80053; 80305-QW; 80307; 83605; 84439; 84443; 84484; 84703; 85025; 96365; 96366; 96375; 96376; 99222; 99232; 99238; 99285; 99285-25; A9270-GY; G0378; J2270; J2405; J3490

== ENCOUNTER 2021-05-26 20:50 | Emergency (ER) | payer MEDICAID ==
[2021-05-26] MEDS ORDERED: LORazepam 2 MG/ML SDV IVPUSH ONE (21:18)
[2021-05-26] MEDS ORDERED: HYDROmorphone 0.5 MG/0.5 ML Syringe IVPUSH ONE (21:28)
[2021-05-26] MEDS ORDERED: Propranolol 60 MG Cap.ER PO ONE (23:09)
[2021-05-26] MEDS ORDERED: Dexamethasone 4 MG/ML SDV INH ONE (23:09)
[2021-05-26 23:20] VITALS: BP 118/49; PULSE 88
== END 2021-05-27 00:02 ==
LOC: JP.ED 20:50
DX: A41.9 Sepsis, unspecified organism (principal); I31.3 Pericardial effusion (noninflammatory); I50.9 Heart failure, unspecified; J90 Pleural effusion, not elsewhere classified; E05.01 Thyrotoxicosis with diffuse goiter with thyrotoxic crisis or storm; R06.02 Shortness of breath; I48.91 Unspecified atrial fibrillation; K21.9 Gastro-esophageal reflux disease without esophagitis; E66.9 Obesity, unspecified; Z68.30 Body mass index [BMI] 30.0-30.9, adult; Z79.01 Long term (current) use of anticoagulants; Z20.822 Contact with and (suspected) exposure to COVID-19
CPT/HCPCS: 36415; 70490; 71250; 80053; 81001; 83605; 83880; 84145; 84439; 84443; 84484; 85025; 86140; 87040; 93005; 93010; 94640; 96374; 96375; 99285; 99285-25; A9270-GY; J1100; J1170; J2060; U0002

== ENCOUNTER 2021-12-14 11:48 | Emergency (ER) | payer MEDICAID ==
[2021-12-15] MEDS ORDERED: Iopamidol 612 MG/ML 100 ML Bottle IV SCH (01:06)
[2021-12-15] MEDS ORDERED: Ketorolac 30 MG/ML SDV IVPUSH ONE (01:10)
[2021-12-15] MEDS ORDERED: Lidocaine 5% 700 MG Patch TRDERM ONE (02:00)
[2022-01-09 16:37] LABS: ESTIMATED GFR 79 mL/min (>60)
== END 2021-12-15 02:54 | disposition home or self-care (01) ==
LOC: JP.ED 11:48
DX: S20.211A Contusion of right front wall of thorax, initial encounter (principal); E87.6 Hypokalemia; W10.9XXA Fall (on) (from) unspecified stairs and steps, initial encounter
CPT/HCPCS: 36415; 71260; 74177; 80053; 85025; 85610; 85730; 96374; 99284; A9270; J1885; Q9967

== ENCOUNTER 2022-02-14 19:45 | Emergency (ER) | payer MEDICAID ==
[2022-02-14 20:09] VITALS: BP 141/66; PULSE 83
[2022-02-14 21:15] LABS: TROPONIN I HIGH SENSITIVITY 5.6 pg/mL (<=60.3)
[2022-02-14 21:26] LABS: CORONAVIRUS COVID-19 NAA NEGATIVE (NEGATIVE)
== END 2022-02-14 22:15 | disposition home or self-care (01) ==
LOC: JP.ED 19:45
DX: J20.8 Acute bronchitis due to other specified organisms (principal); B96.89 Other specified bacterial agents as the cause of diseases classified elsewhere; I48.91 Unspecified atrial fibrillation; F17.210 Nicotine dependence, cigarettes, uncomplicated; E66.9 Obesity, unspecified; Z68.34 Body mass index [BMI] 34.0-34.9, adult; Z20.822 Contact with and (suspected) exposure to COVID-19
CPT/HCPCS: 0241U; 36415; 71046; 83880; 84484; 85025; 93005; 99284

== ENCOUNTER 2022-11-12 18:52 | Emergency (ER) | payer MEDICAID ==
[2022-11-12] MEDS ORDERED: Lidocaine 1% with EPINEPHrine 1:100,000 50 ML MDV INJECT ONE (19:39)
[2022-11-12 19:40] VITALS: BP 119/80; PULSE 68
== END 2022-11-12 20:25 | disposition home or self-care (01) ==
LOC: JP.ED 18:52
DX: L03.211 Cellulitis of face (principal); I48.91 Unspecified atrial fibrillation; F17.210 Nicotine dependence, cigarettes, uncomplicated; E66.9 Obesity, unspecified; Z68.35 Body mass index [BMI] 35.0-35.9, adult; Z79.899 Other long term (current) drug therapy
CPT/HCPCS: 99283

== ENCOUNTER 2023-04-11 19:25 | Emergency (ER) | payer SELFPAY ==
[2023-04-11 19:56] VITALS: BP 115/71; PULSE 85
[2023-04-11] MEDS ORDERED: Sodium Chloride 0.9% 10 ML Syringe FLUSH PRN (20:53)
[2023-04-11 20:54] LABS: CORONAVIRUS COVID-19 NAA NEGATIVE (NEGATIVE); INFLUENZA A NAA POSITIVE (NEGATIVE); INFLUENZA B NAA NEGATIVE (NEGATIVE); RESPIRATORY SYNCYTIAL VIR NAA NEGATIVE (NEGATIVE)
== END 2023-04-11 21:17 | disposition home or self-care (01) ==
LOC: JP.ED 19:25
DX: J10.1 Influenza due to other identified influenza virus with other respiratory manifestations (principal); F17.210 Nicotine dependence, cigarettes, uncomplicated; E66.9 Obesity, unspecified; Z79.899 Other long term (current) drug therapy; Z88.5 Allergy status to narcotic agent
CPT/HCPCS: 0241U; 99283; 99284

== ENCOUNTER 2024-07-24 13:38 | Emergency (ER) | payer MEDICAID ==
[2024-07-24] MEDS: Albuterol/Ipratropium 3.0-0.5 MG/3 ML Neb Soln NEB ONE (14:48)
[2024-07-24 14:52] LABS: BASOPHILS ABSOLUTE AUTO 0.08 K/uL (0.00-0.10); BASOPHILS PERCENT AUTO 1.1 % (0.1-1.3); EOSINOPHILS ABSOLUTE AUTO 0.44 K/uL (0.00-0.40); EOSINOPHILS PERCENT AUTO 6.3 % (0.0-5.4); HEMATOCRIT 41.8 % (34.3-46.0); HEMOGLOBIN 13.6 g/dL (11.2-15.5); IMMATURE GRAN PERCENT AUTO 0.1 % (0.0-0.7); LYMPHOCYTES ABSOLUTE AUTO 1.38 K/uL (0.8-3.3); LYMPHOCYTES PERCENT AUTO 19.7 % (11.4-47.7); MEAN CORPUSCULAR HEMOGLOBIN 31.6 pg (31.6-35.5); MEAN CORPUSCULAR HGB CONC 32.5 g/dL (31.6-35.5); MONOCYTES ABSOLUTE AUTO 0.75 K/uL (0.20-0.90); MONOCYTES PERCENT AUTO 10.7 % (3.3-12.6); NEUTROPHILS ABSOLUTE AUTO 4.35 K/uL (1.0-7.6); NEUTROPHILS PERCENT AUTO 62.1 % (40.0-78.1); PLATELET COUNT,PLT 152 K/uL (130-375); RED BLOOD CELL COUNT 4.31 M/uL (3.77-5.24)
[2024-07-24 14:58] LABS: IMMATURE GRAN ABSOLUTE AUTO 0.01 K/uL (0.00-0.23)
[2024-07-24 15:20] LABS: BASE EXCESS VENOUS 1.5 mm/L; BICARBONATE,VENOUS 27.1 mmol/L; CARBOXYHEMOGLOBIN 1.4 % (0.0-1.6); METHEMOGLOBIN 0.4 %; O2 SATURATION VENOUS 54.7; OXYHEMOGLOBIN 53.7 %; PCO2 VENOUS 48.4 mm/Hg; PH,VENOUS 7.367 (7.350-7.450); TOTAL HEMOGLOBIN 15.7 g/dL (12.0-16.0)
[2024-07-24 15:22] LABS: PO2 VENOUS 31.8 mm/Hg
[2024-07-24 15:23] VITALS: BP 118/72; PULSE 79
[2024-07-24 15:27] LABS: A/G RATIO 0.8 (1.2-2.2); ALANINE AMINOTRANSFERASE,ALT 28 U/L (12-78); ALBUMIN 3.2 g/dL (3.4-5.0); ALKALINE PHOSPHATASE 82 U/L (46-116); ANION GAP 9.3 mmol/L (5.0-14.0); ASPARTATE AMNIOTRANSFERASE,AST 18 U/L (15-37); BILIRUBIN TOTAL 0.2 mg/dL (0.2-1.0); BLOOD UREA NITROGEN,BUN 14 mg/dL (7-18); CALCIUM 8.8 mg/dL (8.5-10.1); CARBON DIOXIDE,CO2 27 mmol/L (21-32); CHLORIDE,CL 105 mmol/L (100-108); CREATININE 0.8 mg/dL (0.6-1.0); EST CRCL DRUG DOSING (CG) 73.46 mL/min; ESTIMATED GFR 90 mL/min (>60); GLUCOSE RANDOM 88 mg/dL (74-106); PRO B-TYPE NATRIUR PEPT,BNPPRO 44 pg/mL (5-125); PROTEIN TOTAL,TP 7.2 g/dL (6.4-8.2); SODIUM,NA 141 mmol/L (140-148)
[2024-07-24 15:32] LABS: MAGNESIUM 1.9 mg/dL (1.8-2.4)
[2024-07-24 15:33] LABS: C-REACTIVE PROTEIN <0.50 mg/dL (<0.50)
== END 2024-07-24 16:09 | disposition home or self-care (01) ==
LOC: JP.ED 13:38
DX: J45.901 Unspecified asthma with (acute) exacerbation (principal); K21.9 Gastro-esophageal reflux disease without esophagitis; E66.9 Obesity, unspecified; Z68.34 Body mass index [BMI] 34.0-34.9, adult; Z90.49 Acquired absence of other specified parts of digestive tract; Z79.899 Other long term (current) drug therapy; Z88.5 Allergy status to narcotic agent
CPT/HCPCS: 36415; 71046; 80053; 82803; 83605; 83735; 83880; 84443; 85025; 85379; 86140; 87428; 94640; 99285; J7620; A9270-GY

== ENCOUNTER 2024-11-05 22:32 | Emergency (ER) | payer MEDICAID ==
[2024-11-05 22:54] LABS: BASOPHILS ABSOLUTE AUTO 0.05 K/uL (0.00-0.10); BASOPHILS PERCENT AUTO 0.6 % (0.1-1.3); EOSINOPHILS ABSOLUTE AUTO 0.11 K/uL (0.00-0.40); EOSINOPHILS PERCENT AUTO 1.4 % (0.0-5.4); IMMATURE GRAN ABSOLUTE AUTO 0.01 K/uL (0.00-0.23); IMMATURE GRAN PERCENT AUTO 0.1 % (0.0-0.7); LYMPHOCYTES ABSOLUTE AUTO 1.99 K/uL (0.8-3.3); LYMPHOCYTES PERCENT AUTO 24.6 % (11.4-47.7); MONOCYTES ABSOLUTE AUTO 0.72 K/uL (0.20-0.90); MONOCYTES PERCENT AUTO 8.9 % (3.3-12.6); NEUTROPHILS ABSOLUTE AUTO 5.20 K/uL (1.0-7.6); NEUTROPHILS PERCENT AUTO 64.4 % (40.0-78.1); PLATELET COUNT,PLT 159 K/uL (130-375); RED BLOOD CELL COUNT 4.51 M/uL (3.77-5.24); WHITE BLOOD CELL COUNT,WBC 8.1 K/uL (3.2-11.0)
[2024-11-05 23:19] LABS: A/G RATIO 0.8 (1.2-2.2); ALANINE AMINOTRANSFERASE,ALT 27 U/L (12-78); ASPARTATE AMNIOTRANSFERASE,AST 15 U/L (15-37); BILIRUBIN TOTAL 0.2 mg/dL (0.2-1.0); BLOOD UREA NITROGEN,BUN 13 mg/dL (7-18); CARBON DIOXIDE,CO2 28 mmol/L (21-32); CHLORIDE,CL 105 mmol/L (100-108); CREATININE 0.9 mg/dL (0.6-1.0); EST CRCL DRUG DOSING (CG) 65.29 mL/min; ESTIMATED GFR 78 mL/min (>60); GLUCOSE RANDOM 134 mg/dL (74-106); POTASSIUM,K 3.5 mmol/L (3.6-5.2); PROTEIN TOTAL,TP 7.5 g/dL (6.4-8.2); SODIUM,NA 140 mmol/L (140-148)
[2024-11-05 23:22] LABS: TROPONIN I HIGH SENSITIVITY 65.5 pg/mL (<=60.3)
[2024-11-05] MEDS: Ketorolac 15 MG/ML SDV IVPUSH ONE (23:52)
[2024-11-06] MEDS: Alum Hydrox/Mag Hydrox/Simeth 15 ML, Lidocaine 2% 15 ML PO ONE (01:18)
[2024-11-06] MEDS: Nitroglycerin 0.4 MG Tab.SL SL ONE ×2 (01:34→02:40)
[2024-11-06] MEDS: Ondansetron 4 MG/2 ML SDV IVPUSH ONE (03:08)
[2024-11-06 05:52] VITALS: BP 101/60; PULSE 71
== END 2024-11-06 05:52 ==
LOC: JP.ED 22:32
DX: R07.89 Other chest pain (principal); R79.89 Other specified abnormal findings of blood chemistry; I50.9 Heart failure, unspecified; E66.9 Obesity, unspecified; F17.200 Nicotine dependence, unspecified, uncomplicated; Z88.5 Allergy status to narcotic agent; Z79.899 Other long term (current) drug therapy; Z79.890 Hormone replacement therapy; Z90.49 Acquired absence of other specified parts of digestive tract; Z68.41 Body mass index [BMI] 40.0-44.9, adult
CPT/HCPCS: 36415; 71045; 80053; 83690; 83880; 84443; 84484; 85025; 85730; 93005; 93010; 96365; 96366; 96375; 99285; A9270; J1885; J2305; J2405; J3490; J1171

== ENCOUNTER 2024-11-09 17:26 | Emergency (ER) | payer MEDICAID ==
[2024-11-09 17:52] LABS: BASOPHILS ABSOLUTE AUTO 0.03 K/uL (0.00-0.10); BASOPHILS PERCENT AUTO 0.3 % (0.1-1.3); EOSINOPHILS ABSOLUTE AUTO 0.14 K/uL (0.00-0.40); EOSINOPHILS PERCENT AUTO 1.6 % (0.0-5.4); IMMATURE GRAN ABSOLUTE AUTO 0.03 K/uL (0.00-0.23); IMMATURE GRAN PERCENT AUTO 0.3 % (0.0-0.7); LYMPHOCYTES ABSOLUTE AUTO 1.49 K/uL (0.8-3.3); LYMPHOCYTES PERCENT AUTO 17.0 % (11.4-47.7); MONOCYTES ABSOLUTE AUTO 0.79 K/uL (0.20-0.90); MONOCYTES PERCENT AUTO 9.0 % (3.3-12.6); NEUTROPHILS ABSOLUTE AUTO 6.31 K/uL (1.0-7.6); NEUTROPHILS PERCENT AUTO 71.8 % (40.0-78.1); PLATELET COUNT,PLT 167 K/uL (130-375); RED BLOOD CELL COUNT 4.10 M/uL (3.77-5.24); WHITE BLOOD CELL COUNT,WBC 8.8 K/uL (3.2-11.0)
[2024-11-09 18:12] LABS: A/G RATIO 0.8 (1.2-2.2); ALANINE AMINOTRANSFERASE,ALT 26 U/L (12-78); ASPARTATE AMNIOTRANSFERASE,AST 19 U/L (15-37); BILIRUBIN TOTAL 0.3 mg/dL (0.2-1.0); BLOOD UREA NITROGEN,BUN 13 mg/dL (7-18); CARBON DIOXIDE,CO2 28 mmol/L (21-32); CHLORIDE,CL 106 mmol/L (100-108); CREATININE 0.7 mg/dL (0.6-1.0); EST CRCL DRUG DOSING (CG) 83.03 mL/min; ESTIMATED GFR 105 mL/min (>60); GLUCOSE RANDOM 96 mg/dL (74-106); POTASSIUM,K 3.8 mmol/L (3.6-5.2); PROTEIN TOTAL,TP 7.0 g/dL (6.4-8.2); SODIUM,NA 141 mmol/L (140-148)
[2024-11-09 18:13] LABS: TROPONIN I HIGH SENSITIVITY 160.5 pg/mL (<=60.3)
[2024-11-09] MEDS: Ondansetron 4 MG/2 ML SDV IVPUSH ONE (18:29)
[2024-11-09] MEDS: fentaNYL 100 MCG/2 ML SDV IVPUSH ONE (18:29)
[2024-11-09] MEDS: Ketorolac 30 MG/ML SDV IVPUSH ONE (19:03)
[2024-11-09 20:32] VITALS: BP 117/67; PULSE 63
[2024-11-09] MEDS ORDERED: Alum Hydrox/Mag Hydrox/Simeth 15 ML, Lidocaine 2% 15 ML PO ONE (20:57)
== END 2024-11-09 22:46 | disposition home or self-care (01) ==
LOC: JP.ED 17:26
DX: R07.89 Other chest pain (principal); I50.9 Heart failure, unspecified; I48.91 Unspecified atrial fibrillation; E66.9 Obesity, unspecified; F17.200 Nicotine dependence, unspecified, uncomplicated; Z79.899 Other long term (current) drug therapy; Z79.890 Hormone replacement therapy; Z88.8 Allergy status to other drugs, medicaments and biological substances; Z90.49 Acquired absence of other specified parts of digestive tract; Z68.41 Body mass index [BMI] 40.0-44.9, adult
CPT/HCPCS: 36415; 71045; 80053; 84484; 85025; 93005; 96374; 96375; 99285; J1308; J1885; J2405; J3010